=== PATIENT | male | born 1950 | race Caucasian/White ===

== ENCOUNTER 2016-01-23 22:24 | Inpatient (IN) | payer MEDICARE, MEDICAID ==
[~2016-01-23] VITALS: Ht 185.4 cm; Wt 90.7 kg
[~2016-01-23 22:24] MED LIST: ASPI81TA85 PO; BRIM0.2S OU; CEFD1CAP8 PO; COMBAER6 INH; DEPA500T2 PO; DIVA500T9 PO; DORZ2SOL5 OU; FOLI1TAB2 PO; FURO40TA2 PO; LISI10TA4 PO; OXAZ10CA PO; QUET1TAB7 PO; QUET1TAB9 PO; SERO1TAB3 PO; SERO200T PO; THIA100T PO; VITMTA PO; XANA0.5T PO
[2016-01-23 23:40] LABS: MEAN CORPUSCULAR HGB CONC 32.8 g/dl (32.0-36.5); MEAN CORPUSCULAR VOLUME 100.6 fl (80.0-96.0); RED CELL DISTRIBUTION WIDTH 13.7 % (11.5-14.5); WHITE BLOOD COUNT 5.9 K/mm3 (5.0-10.0)
[2016-01-23 23:43] LABS: AMPHETAMINES LEVEL URINE NEGATIVE (NEGATIVE); BENZODIAZEPINES URINE NEGATIVE (NEGATIVE); COCAINE METABOLITE URINE NEGATIVE (NEGATIVE); M-AMPHETAMINES LEVEL URINE NEGATIVE (NEGATIVE); OPIATES URINE NEGATIVE (NEGATIVE); TRICYCLIC ANTIDEPRESS URINE NEGATIVE (NEGATIVE)
[2016-01-23 23:49] LABS: ALBUMIN 3.5 GM/DL (3.2-5.2); ALKALINE PHOSPHATASE 58 U/L (45-117); ALT/SGPT 21 U/L (12-78); ANION GAP 10 MEQ/L (8-16); AST/SGOT 16 U/L (15-37); BILIRUBIN,DIRECT 0.2 MG/DL (0.0-0.2); BILIRUBIN,TOTAL 0.7 MG/DL (0.2-1.0); BLOOD UREA NITROGEN 12 MG/DL (7-18); CARBON DIOXIDE LEVEL 27 MEQ/L (21-32); CHLORIDE LEVEL 95 MEQ/L (98-107); GLOMERULAR FILTRATION RATE > 60.0 (>49); GLUCOSE, FASTING 96 MG/DL (80-110); POTASSIUM SERUM 4.4 MEQ/L (3.5-5.1); SODIUM LEVEL 132 MEQ/L (136-145)
[2016-01-24] MEDS ORDERED: THIAMINE 100 MG TAB As Ordered ONE (00:23)
--- NOTE | 2016-01-24 02:30 | REPUSA ---
CLINICAL HISTORY: AMS. TECHNIQUE: Multiple axial brain CT scan sections were obtained from base to vertex without contrast a dministration. COMMENTS: The study shows normal configuration of sella turcica. There are no intra or extra-axial collections. There is no mass effect or midline shift. There is no evidence of hematoma formation. No hydrocephal us is present. No abnormal calcifications are noted. No significant abnormalities are seen either in the posterior fossa or supratentorial compartment. The sinuses and mastoid air cells are patent. IMPRESSION: No evidence of acute intracranial pathology. Thank you for your kind referral of this patient.
[2016-01-24] MEDS ORDERED: ONDANSETRON 4 MG TAB (S0181) PO PRN (06:00)
[2016-01-24] MEDS ORDERED: risperiDONE 0.5 MG TAB PO ONE (06:30)
[2016-01-24 07:05] LABS: CALCIUM OXALATE CRYSTALS SMALL
[2016-01-24 07:32] VITALS: BP 154/78
--- NOTE | 2016-01-24 07:41 | EDDOCDS ---
Physician Documentation [facility] Name: Guicho Chavez Age: 65 yrs Sex: Male : 1950 Arrival Date: 01/23/2016 Time: 22:24 Bed 11 Private MD: Disposition: 01/24/16 06:10 Hospitalization ordered by Sachi Jauregui for Inpatient Admission. Preliminary diagnosis is Wernicke's encephalopathy. - Bed requested for 4 [place]. - Status is Inpatient Admission. [id number] - Condition is Stable. - Problem is new. - Symptoms are unchanged. Historical: - Allergies: NKDA; - Home Meds: 1. aspirin 81 mg Oral TbEC 1 tab once daily 2. brimonidine-timolol ophthalmic 1 drop every 12 hours both eyes 3. Depakote ER 2 grams daily Oral 4. dorzolamide-timolol 22.3-6.8 mg/mL ophthalmic drop 1 drop 2 times per day 5. ipratropium-albuterol 0.5 mg-3 mg(2.5 mg base)/3 mL Inhl nebu as needed as needed 6. Lasix 40 mg Oral tab 1 tab 2 times per day 7. lisinopril 10 mg Oral tab 1 tab once daily 8. thiamine HCl 100 mg Oral tab daily - PMHx: Alcoholism; COPD; Glaucoma; Hypertension; hyponatremia; macrocytic anemia; peripheral neuropathy; - PSHx: Umbilical hernia repair; - Social history: Smoking status: unknown if patient ever smoked tobacco. No barriers to communication noted, The patient speaks fluent Yoruba. - Family history: Not pertinent. - : The pt / caregiver states he / she is not on anticoagulants. Home medication list is obtained from the facility [facility]. - Exposure Risk Screening:: None identified. Vital Signs: 01/22 22:28 BP 139 / 90; Pulse 91; Resp 20; Temp 98.4; Pulse Ox 96% ; Pain 0/10; slm 22:30 Weight 72.57 kg / 159.99 lbs; Height 6 ft. 1 in. (185.42 cm); [facility] 01/23 01:51 BP 143 / 83; Pulse 81; Resp 20; Pulse Ox 96% on R/A; slm 06:12 BP 151 / 80; Pulse 73; Resp 18; Temp 96.0(T); Pulse Ox 100% on R/A; Pain 0/10; mdr 07:32 BP 154 / 78; Pulse 76; Resp 18; Temp 96.5(O); Pulse Ox 99% on R/A; Pain 0/10; js13 01/22 22:30 Body Mass Index 21.11 (72.57 kg, 185.42 cm) [facility] MDM: 01/22 22:47 Consult PFS/PSA/Traffic Administrator ordered. br1 22:47 Consult PFS/PSA/Traffic Administrator: Patient's case requires discussion with on-call br1 Psychiatrist ordered. 22:47 PSA/PFS to call Nursing Director Client, to enter patient data on [place] Safe Act if patient br1 involuntarily admitted or transferred for SI or HI ordered. 22:47 Confirm accurate psychiatric medication list and times of last dosage ordered. br1 22:47 Detain Pt Until Medically/PFS Cleared ordered. br1 22:48 Acetaminophen Level Ordered. EDMS 22:48 Basic Metabolic Profile Ordered. EDMS 22:48 Complete Blood Count Ordered. EDMS 22:48 Drug Eval Toxicology ED Only Ordered. EDMS 22:48 Ethyl Alcohol (ethanol) Ordered. EDMS 22:48 Liver Profile Ordered. EDMS 22:48 Salicylate Level Ordered. EDMS 22:48 Thyroid Stimulating Hormone Ordered. EDMS 22:48 DEPAKOTE Ordered. EDMS 23:56 MHE Legal paperwork was scanned into Docin and attached to record. [facility] 01/23 00:05 Acetaminophen Level Reviewed. br1 00:05 Basic Metabolic Profile Reviewed. br1 00:05 Complete Blood Count Reviewed. br1 00:05 Salicylate Level Reviewed. br1 00:05 DEPAKOTE Reviewed. br1 00:05 Drug Eval Toxicology ED Only Reviewed. br1 00:05 Ethyl Alcohol (ethanol) Reviewed. br1 00:05 Liver Profile Reviewed. br1 00:05 Thyroid Stimulating Hormone Reviewed. br1 00:09 Thiamine 100 mg PO once ordered. br1 00:13 CT Head Without Contrast Ordered. EDMS 00:16 BED REQUEST+ADM ordered. EDMS 05:16 REGULAR DIET PLASTIC HONG+DIET ordered. EDMS 06:02 Admission / Observation Status ordered. EDMS 06:02 URINALYSIS Ordered. EDMS 06:03 AMMONIA Ordered. EDMS 06:07 [facility] Payment Agreement was scanned into Docin and attached to record. ers 06:11 IV Saline Lock ordered. br1 06:12 Financial registration complete. ers 07:28 REGULAR DIET ordered. EDMS Administered Medications: 00:26 Drug: Thiamine 100 mg [thiamine HCl 100 mg tablet (1 tabs)] Route: PO; slm Signatures: Dispatcher [employer] EDMS Michael Guaman MD MD br1 Sachi Ferguson, PSA PSA hm1 Nava Garcia,RN RN js13 Gladys Rashid,RN RN ls2 Gladys Mata, RN RN sls2 Nohelia Trent [facility] Naomi Alvarez LPN m The chart was reviewed and I authenticate all verbal orders and agree with the evaluation and treatment provided.Corrections: (The following items were deleted from the chart) 06:18 06:03 VALPROIC ACID (DEPAKOTE) ordered. EDMS EDMS 07:28 06:02 REGULAR DIET ordered. EDMS EDMS Attachments: 01/23 06:07 [facility] Payment Agreement ers MTDD
--- NOTE | 2016-01-24 07:41 | EDDOCDS ---
Nurse's Notes [facility] Name: Guicho Chavez Age: 65 yrs Sex: Male : 1950 Arrival Date: 01/23/2016 Time: 22:24 Bed 11 Private MD: Diagnosis: Wernicke's encephalopathy Presentation: 01/22 22:42 Presenting complaint: patient was brought in by [place] police, patient was cutting ls2 wholes in his ochoa, became aggressive towards his , patient is the room having a conversation with himself at this time. Mental Health Triage Level Level 2: The patient is visibly agitated and appears to be potentially at risk. Suicide/Homicide risk assessment- the patient denies having any suicidal and/or homicidal ideations. Status Patient is not a mechanical service specialist or dependent. Transition of care: patient was not received from another setting of care. 22:42 Acuity: GEORGE Level 3 ls2 22:42 Method Of Arrival: Police Car ls2 Triage Assessment: 22:45 General: Appears in no apparent distress, Behavior is agitated, anxious, inappropriate ls2 for age. Pain: Denies pain. The patient is triaged at the bedside. See Assessment in Nurses Notes section of ED record. Neurological: Level of Consciousness is awake, alert, confused, Oriented to person, Moves all extremities. Gait is steady. Respiratory: Airway is patent Respiratory effort is even, unlabored, Respiratory pattern is regular, symmetrical. GI: Abdomen is flat, non- distended. Derm: Skin is pink, warm & dry. Historical: - Allergies: NKDA; - Home Meds: 1. aspirin 81 mg Oral TbEC 1 tab once daily 2. brimonidine-timolol ophthalmic 1 drop every 12 hours both eyes 3. Depakote ER 2 grams daily Oral 4. dorzolamide-timolol 22.3-6.8 mg/mL ophthalmic drop 1 drop 2 times per day 5. ipratropium-albuterol 0.5 mg-3 mg(2.5 mg base)/3 mL Inhl nebu as needed as needed 6. Lasix 40 mg Oral tab 1 tab 2 times per day 7. lisinopril 10 mg Oral tab 1 tab once daily 8. thiamine HCl 100 mg Oral tab daily - PMHx: Alcoholism; COPD; Glaucoma; Hypertension; hyponatremia; macrocytic anemia; peripheral neuropathy; - PSHx: Umbilical hernia repair; - Social history: Smoking status: unknown if patient ever smoked tobacco. No barriers to communication noted, The patient speaks fluent Australian. - Family history: Not pertinent. - : The pt / caregiver states he / she is not on anticoagulants. Home medication list is obtained from the facility MAR. - Exposure Risk Screening:: None identified. Screenin:45 Screening information is obtained from prior medical records. Fall risk: At risk due to ls2 apparent cognitive impairment, The following interventions are performed due to a positive Fall Risk Screen: Fall Risk is added to Special Handling on the patient Summary Screen. A Fall Risk Bracelet was applied to the patient. Side Rails are placed in the up position. A Call Meeks is given with instruction to call for help when getting out of bed. Fall Alert bracelet is placed on the patient. Assistance ADL's: requires no assistance with activities of daily living. Abuse/DV Screen: The patient / caregiver reports he/she is: not in a situation that causes fear, pain or injury. Nutritional screening: No deficits noted. Advance Directives: Currently, there is no health care proxy. home support is adequate. Assessment: 22:45 General: Appears in no apparent distress, Behavior is agitated, anxious, inappropriate ls2 for age. Pain: Unable to use pain scale. Does not appear to understand pain scale. Neurological: Level of Consciousness is awake, alert, Oriented to person, place, time. Respiratory: Airway is patent Respiratory effort is even, unlabored, Respiratory pattern is regular, symmetrical. GI: Abdomen is non- distended. Derm: Skin is pink, warm & dry. 22:45 General: patient appears to be confused and is talking to himself at this time . ls2 22:54 General: Appears in no apparent distress, Behavior is anxious, inappropriate for age, slm pt laying on stretcher rambling talking to self security observing . 01/23 00:27 General: Appears in no apparent distress, Behavior is restless. General: pt sitting in slm chair talking to self security observing . Neurological: Level of Consciousness is awake, confused, Oriented to person. Respiratory: Airway is patent Respiratory effort is even, unlabored. GI: 01:20 General: Appears in no apparent distress, comfortable, Behavior is cooperative. slm General: pt resting on stretcher security observing . Respiratory: Airway is patent Respiratory effort is even, unlabored. 01:51 General: Appears in no apparent distress, Behavior is cooperative, pt returned from CT slm resting on stretcher denies needs security observing . 02:45 General: Appears in no apparent distress, comfortable, Behavior is cooperative. slm General: security observing . Respiratory: Airway is patent Respiratory effort is even, unlabored. 04:03 General: Appears in no apparent distress, Behavior is cooperative, inappropriate for slm age. General: pt sitting in chair rambling to self security observing . Respiratory: Airway is patent Respiratory effort is even, unlabored. 05:00 General: Appears in no apparent distress, Behavior is cooperative. General: pt sitting slm in chair talking to self denies needs security observing . Respiratory: Airway is patent Respiratory effort is even, unlabored. 05:41 General: Appears in no apparent distress, Behavior is cooperative, Dr into see pt . slm 06:15 General: Appears in no apparent distress, comfortable, Behavior is cooperative. slm General: pt sitting on chair continuously talking to self safety maintained staff observing . Neurological: Level of Consciousness is awake, obeys commands, Oriented to person. Respiratory: Airway is patent Respiratory effort is even, unlabored. 06:45 General: Appears in no apparent distress, comfortable, Behavior is anxious, restless, js13 very talkative. Pain: Denies pain. Neurological: Level of Consciousness is awake, alert, obeys commands, Oriented to person, place, time. Respiratory: Airway is patent Respiratory effort is even, unlabored, Respiratory pattern is regular, symmetrical. Derm: Skin is pink, warm & dry. 07:30 General: Appears in no apparent distress, comfortable, Behavior is cooperative, js13 restless, very talkative. Pain: Denies pain. Neurological: Level of Consciousness is awake, alert, obeys commands. Respiratory: Airway is patent Respiratory effort is even, unlabored, Respiratory pattern is regular, symmetrical. Derm: Skin is pink, warm & dry. Mental Health Eval: 01/22 23:50 Referral Information: Evaluation referral is generated by a police agency: [facility]. The patient was referred for evaluation because Police were called by neighbors reporting that pt had been wandering in the middle of the road multiple times throughout the day. Pt has also been yelling and rambling incoherently, frightening neighbors. Pt has a recent history of aggressive and threatening behaviors toward family. Today pt has also been cutting holes in his ochoa for no apparent reason, had been cutting into electrical areas causing concern that he was going to harm himself. . Vital Signs: 22:28 BP 139 / 90; Pulse 91; Resp 20; Temp 98.4; Pulse Ox 96% ; Pain 0/10; [facility] 22:30 Weight 72.57 kg; Height 6 ft. 1 in. (185.42 cm); [facility] 01/23 01:51 BP 143 / 83; Pulse 81; Resp 20; Pulse Ox 96% on R/A; [facility] 06:12 BP 151 / 80; Pulse 73; Resp 18; Temp 96.0(T); Pulse Ox 100% on R/A; Pain 0/10; mdr 07:32 BP 154 / 78; Pulse 76; Resp 18; Temp 96.5(O); Pulse Ox 99% on R/A; Pain 0/10; js13 01/22 22:30 Body Mass Index 21.11 (72.57 kg, 185.42 cm) [facility] Vitals: 01/22 22:28 Log In time N/A- police car arrival. Does not meet SIRS criteria. [facility] ED Course: 22:26 Patient visited by Cuca Kruger. [facility] 22:[address] [facility] 22:27 Alexus Cardoso,RN is Primary Nurse. [facility] 22:27 Patient moved to [place] [id number] 22:44 Triage Initiated ls2 22:45 Unable to instruct regarding the plan of care due to patient condition. Patient has ls2 correct armband on for positive identification. Placed in gown. Placed in psych safe attire. Bed in low position. Call light in reach. Side rails up X 1. 22:45 No IV's were initiated during this patient's visit. No procedures done that require ls2 assistance. 22:47 Patient visited by Gladys Rashid RN. ls2 22:55 Patient visited by Naomi Alvarez LPN. slm 23:05 Patient visited by Naomi Alvarez LPN. slm 23:14 Patient visited by Ancelmo Eason PCA. mdr 23:19 Patient visited by Ancelmo Eason PCA. mdr 23:19 Patient visited by Ancelmo Eason PCA. mdr 23:19 Assisted to bathroom. mdr 23:26 Labs drawn. (by ED staff). Sent per order to lab. Urine collected. Urine specimen sent slm to lab. 23:34 Patient visited by Ancelmo Eason PCA. mdr 23:40 Michael Guaman MD is Attending Physician. br1 23:50 Patient visited by Michael Guaman MD. br1 23:56 [facility] Legal paperwork was scanned into [employer] and attached to record. hm1 01/23 00:05 Patient visited by Ancelmo Eason PCA. mdr 00:12 Primary Nurse role handed off by Alexus Cardoso RN collins 00:15 Patient visited by Ancelmo Eason PCA. mdr 00:26 Naomi Alvarez LPN is Primary Nurse. slm 00:28 Patient visited by Naomi Alvarez LPN. slm 00:50 Patient visited by Ancelmo Eason PCA. mdr 01:36 Patient visited by Naomi Alvarez LPN. slm 01:[address] slm 01:51 Patient moved to BHU1 slm 01:52 Patient visited by Naomi Alvarez LPN. slm 01:53 Patient visited by Naomi Alvarez LPN. slm 02:03 Patient visited by Naomi Alvarez LPN. slm 02:34 Patient visited by Ancelmo Eason PCA. mdr 02:45 Patient visited by Naomi Alvarez LPN. slm 02:51 CT Head Without Contrast Returned. EDMS 02:53 Patient visited by Ancelmo Eason PCA. mdr 03:04 Patient visited by Ancelmo Eason PCA. mdr 03:20 Patient visited by Ancelmo Eason PCA. mdr 03:46 Patient visited by Ancelmo Eason PCA. mdr 04:00 Patient visited by Ancelmo Eason PCA. mdr 04:04 Patient visited by Naomi Alvarez LPN. slm 04:38 Patient visited by Ancelmo Eason PCA. mdr 04:48 Patient visited by Ancelmo Eason PCA. mdr 04:59 Patient visited by Ancelmo Eason PCA. mdr 05:14 Patient visited by Ancelmo Eason PCA. mdr 05:22 Patient visited by Naomi Alvarez LPN. slm 05:35 Patient visited by Ancelmo Eason PCA. mdr 05:41 Patient visited by Ancelmo Eason PCA. mdr 05:42 Patient visited by Naomi Alvarez LPN. slm 05:56 Patient visited by Ancelmo Eason PCA. mdr 06:07 [facility] Payment Agreement was scanned into [employer] and attached to record. ers 06:10 Sachi Jauregui is Hospitalizing Provider. br1 06:12 Patient visited by Ancelmo Eason PCA. mdr 06:16 Patient visited by Naomi Alvarez LPN. slm 06:18 Nava Garcia,NANCY is Primary Nurse. js13 06:18 Patient moved to 11 js13 06:33 AMMONIA Sent. js13 06:34 URINALYSIS Sent. js13 06:35 Inserted saline lock: 18 gauge in left antecubital area and blood collected. The js13 patient tolerated the procedure well. Labs drawn. (by ED staff). Sent per order to lab. Administered Medications: 00:26 Drug: Thiamine 100 mg [thiamine HCl 100 mg tablet (1 tabs)] Route: PO; [facility] Attachments: 01/22 23:56 [facility] Legal paperwork hm1 Order Results: Lab Order: Acetaminophen Level; SPEC'M 01/23/16 22:52 Test: ACETAMINOPHEN LEVEL; Value: < 2.0; Range: 10.0-30.0; Abnormal: Below low normal; Units: UG/ML; Status: F Lab Order: Basic Metabolic Profile; SPEC'M 01/23/16 22:52 Test: GLUCOSE, FASTING; Value: 96; Range: 80-110; Units: MG/DL; Status: F Test: BLOOD UREA NITROGEN; Value: 12; Range: 7-18; Units: MG/DL; Status: F Test: CREATININE FOR GFR; Value: 0.70; Range: 0.70-1.30; Units: MG/DL; Status: F Test: GLOMERULAR FILTRATION RATE; Value: > 60.0; Range: >49; Status: F Test: SODIUM LEVEL; Value: 132; Range: 136-145; Abnormal: Below low normal; Units: MEQ/L; Status: F Test: POTASSIUM SERUM; Value: 4.4; Range: 3.5-5.1; Units: MEQ/L; Status: F Test: CHLORIDE LEVEL; Value: 95; Range: 98-107; Abnormal: Below low normal; Units: MEQ/L; Status: F Test: CARBON DIOXIDE LEVEL; Value: 27; Range: 21-32; Units: MEQ/L; Status: F Test: ANION GAP; Value: 10; Range: 8-16; Units: MEQ/L; Status: F Test: CALCIUM LEVEL; Value: 9.0; Range: 8.8-10.2; Units: MG/DL; Status: F Test Note: ; Units are mL/min/1.73 m2 Chronic Kidney Disease Staging per NKF: Stage I & II GFR >=60 Normal to Mildly Decreased Stage III GFR 30-59 Moderately Decreased Stage IV GFR 15-29 Severely Decreased Stage V GFR <15 Very Little GFR Left ESRD GFR <15 on MARKET MANAGER Lab Order: Complete Blood Count; [facility]' 01/23/16 22:52 Test: WHITE BLOOD COUNT; Value: 5.9; Range: 5.0-10.0; Units: K/mm3; Status: F Test: RED BLOOD COUNT; Value: 3.47; Range: 4.70-6.10; Abnormal: Below low normal; Units: M/mm3; Status: F Test: HEMOGLOBIN; Value: 11.5; Range: 14.0-18.0; Abnormal: Below low normal; Units: g/dl; Status: F Test: HEMATOCRIT; Value: 34.9; Range: 42.0-52.0; Abnormal: Below low normal; Units: %; Status: F Test: MEAN CORPUSCULAR VOLUME; Value: 100.6; Range: 80.0-96.0; Abnormal: Above high normal; Units: fl; Status: F Test: MEAN CORPUSCULAR HEMOGLOBIN; Value: 33.0; Range: 27.0-33.0; Units: pg; Status: F Test: MEAN CORPUSCULAR HGB CONC; Value: 32.8; Range: 32.0-36.5; Units: g/dl; Status: F Test: RED CELL DISTRIBUTION WIDTH; Value: 13.7; Range: 11.5-14.5; Units: %; Status: F Test: PLATELET COUNT, AUTOMATED; Value: 144; Range: 172-450; Abnormal: Below low normal; Units: k/mm3; Status: F Lab Order: Drug Eval Toxicology ED Only; SPEC'M 01/23/16 22:52 Test: AMPHETAMINES LEVEL URINE; Value: NEGATIVE; Range: NEGATIVE; Status: F Test: M-AMPHETAMINES LEVEL URINE; Value: NEGATIVE; Range: NEGATIVE; Status: F Test: BARBITURATES URINE; Value: NEGATIVE; Range: NEGATIVE; Status: F Test: BENZODIAZEPINES URINE; Value: NEGATIVE; Range: NEGATIVE; Status: F Test: CANNABINOIDS URINE; Value: NEGATIVE; Range: NEGATIVE; Status: F Test: COCAINE METABOLITE URINE; Value: NEGATIVE; Range: NEGATIVE; Status: F Test: OPIATES URINE; Value: NEGATIVE; Range: NEGATIVE; Status: F Test: PHENCYCLIDINE URINE; Value: NEGATIVE; Range: NEGATIVE; Status: F Test: TRICYCLIC ANTIDEPRESS URINE; Value: NEGATIVE; Range: NEGATIVE; Status: F Test Note: ; ALL PRESUMPTIVE POSITIVE FINDINGS ARE UNCONFIRMED NORMAL VALUES THRESHOLD IN NG/ML AMPHETAMINES 1000 METHAMPHETAMINES 1000 BARBITURATES 300 BENZODIAZEPINES 300 CANNABINOIDS (THC) 50 COCAINE METABOLITE 300 METHADONE 300 OPIATES 300 PHENCYCLIDINE 25 TRICYCLIC ANTIDEPRESSANTS 1000 RESULTS ARE FOR MEDICAL PURPOSES ONLY. ALL URINE SPECIMENS WILL BE SAVED FOR 3 DAYS. IF CONFIRMATION OF A PRESUMPTIVE POSTIVE SCREEN RESULT IS DESIRED, CALL CHEMISTRY ([phone]) AND REQUEST URINE TO BE SENT TO REFERENCE LAB. FOR A LIST OF CLOSELY RELATED COMPOUNDS PLEASE CALL THE LAB. Lab Order: Ethyl Alcohol (ethanol); SPEC'M 01/23/16 22:52 Test: ETHYL ALCOHOL (ETHANOL); Value: < 0.003; Range: 0.000-0.010; Units: %; Status: F Lab Order: Liver Profile; SPEC'M 01/23/16 22:52 Test: AST/SGOT; Value: 16; Range: 15-37; Units: U/L; Status: F Test: ALT/SGPT; Value: 21; Range: 12-78; Units: U/L; Status: F Test: ALKALINE PHOSPHATASE; Value: 58; Range: 45-117; Units: U/L; Status: F Test: BILIRUBIN,TOTAL; Value: 0.7; Range: 0.2-1.0; Units: MG/DL; Status: F Test: BILIRUBIN,DIRECT; Value: 0.2; Range: 0.0-0.2; Units: MG/DL; Status: F Test: TOTAL PROTEIN; Value: 7.0; Range: 6.4-8.2; Units: GM/DL; Status: F Test: ALBUMIN; Value: 3.5; Range: 3.2-5.2; Units: GM/DL; Status: F Test: ALBUMIN/GLOBULIN RATIO; Value: 1.00; Range: 1.00-1.93; Status: F Lab Order: Salicylate Level; [facility] 01/23/16 22:52 Test: SALICYLATE LEVEL; Value: 2.0; Range: 5.0-30.0; Abnormal: Below low normal; Units: MG/DL; Status: F Lab Order: Thyroid Stimulating Hormone; [facility] 01/23/16 22:52 Test: THYROID STIMULATING HORMONE; Value: 2.640; Range: 0.358-3.740; Units: uIU/ML; Status: F Lab Order: DEPAKOTE; [facility] 01/23/16 22:52 Test: VALPROIC ACID (DEPAKOTE); Value: 23.9; Range: 50.0-100.0; Abnormal: Below low normal; Units: UG/ML; Status: F Lab Order: URINALYSIS; [facility] 01/23/16 22:52 Test: APPEARANCE, URINE; Value: TURBID; Range: CLEAR; Abnormal: Above high normal; Status: F Test: COLOR, URINE; Value: ALEJANDRA; Range: YELLOW; Status: F Test: PH,URINE; Value: 6.0; Range: 5.0-9.0; Units: UNITS; Status: F Test: SPECIFIC GRAVITY URINE AUTO; Value: 1.018; Range: 1.002-1.035; Status: F Test: PROTEIN, URINE AUTO; Value: NEGATIVE; Range: NEGATIVE; Units: mg/dL; Status: F Test: GLUCOSE, URINE (UA) AUTO; Value: NEGATIVE; Range: NEGATIVE; Units: mg/dL; Status: F Test: KETONE, URINE AUTO; Value: TRACE; Range: NEGATIVE; Abnormal: Above high normal; Units: mg/dL; Status: F Test: UROBILINOGEN, URINE AUTO; Value: 2.0; Range: 0.0-2.0; Abnormal: Above high normal; Units: mg/dL; Status: F Test: BILIRUBIN, URINE AUTO; Value: NEGATIVE; Range: NEGATIVE; Status: F Test: NITRITE, URINE AUTO; Value: NEGATIVE; Range: NEGATIVE; Status: F Test: LEUKOCYTE ESTERASE, URINE AUTO; Value: NEGATIVE; Range: NEGATIVE; Status: F Test: BLOOD, URINE BLOOD; Value: 1+; Range: NEGATIVE; Abnormal: Above high normal; Status: F Test: WBC, URINE AUTO; Value: 3; Range: 0-3; Units: /HPF; Status: F Test: RBC, URINE AUTO; Value: 3; Range: 0-3; Units: /HPF; Status: F Test: BACTERIA, URINE AUTO; Value: NEGATIVE; Range: NEGATIVE; Status: F Test: SQUAMOUS EPITHELIAL CELL UR AU; Value: 1; Range: 0-6; Units: /HPF; Status: F Test: MUCUS, URINE; Value: SMALL; Range: NEGATIVE; Status: F Test: HYALINE CAST, URINE AUTO; Value: 0; Range: 0-1; Units: /LPF; Status: F Test: CALCIUM OXALATE CRYSTALS; Value: SMALL; Range: NONE; Status: F Lab Order: AMMONIA; SPEC'M 01/24/16 06:30 Test: AMMONIA; Value: < 25; Range: <32; Units: uMOL/L; Status: F Radiology Order: CT Head Without Contrast Test: CT Head Without Contrast REASON FOR EXAMINATION: altered mental status; ; CLINICAL HISTORY: AMS.; TECHNIQUE: Multiple axial brain CT scan sections were obtained from base to vertex without contrast a; dministration.; COMMENTS:; The study shows normal configuration of sella turcica. There are no intra or extra-axial collections.; There is no mass effect or midline shift. There is no evidence of hematoma formation. No hydrocephal; us is present. No abnormal calcifications are noted.; No significant abnormalities are seen either in the posterior fossa or supratentorial compartment.; The sinuses and mastoid air cells are patent.; IMPRESSION:; No evidence of acute intracranial pathology.; Thank you for your kind referral of this patient.; ; Outcome: 01/22 23:27 Property removed, inventory done, secured in belongings bag- placed in locked locker. [facility] 01/23 01:47 CT Study completed. [facility] 06:10 Decision to Hospitalize by Provider. br1 06:44 Discharge Assessment: patient administered narcotics - no. The following High Risk [facility] Discharge criteria are identified: None. Admitted to Med/Surg accompanied by tech, via wheelchair, with chart. Condition: stable. Admission hand-off: Report Faxed. 07:40 Patient left the ED. [facility] Signatures: Dispatcher [employer] EDMS Michael Guaman MD MD br1 Sachi Ferguson, PSA PSA hm1 Ling Beck, LOGISTIC MANAGER LOGISTIC MANAGER collins Nava Garcia,RN RN js13 Naomi Alvarez LPN LPN Gladys Madison,RN RN ls2 Nohelia Trent, Ancelmo Riggs, LOGISTIC MANAGER LOGISTIC MANAGER mdr MTDD
[2016-01-24 07:45] VITALS: BP 146/72
--- NOTE | 2016-01-24 08:11 | HPEPDOC ---
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 He is an extremely poor historian and he is not able to participate in an interview with me today. When I ask him questions most of his answers do not make sense. When I ask him how he is doing he responds, "these pants fit me." It is difficult to follow what he is saying but it does sound like she is making accusations that someone has stolen something from him. This entire history is obtained via chart review and discussion with the ED physician. 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 History of alcoholism, unclear if he currently drinks. No drug history Allergies: Codeine Review of systems: Review of systems is unable to be obtained as the patient is not able to her participate in an interview. Home meds: See below Physical exam: Vital signs: Blood pressure 143/83, HR 81, temperature 98.4, O2 sat 96% on room air, RR 20 Gen.: awake, no acute distress Eyes: Extraocular movements intact, normal sclera ENT: Moist mucous membranes Cardiovascular: RRR, no murmurs rubs or gallops Lungs: clear to auscultation bilaterally, no rales, rhonchi, or wheeze Abdomen: Soft, NT/ND, normal BS Musculoskeletal: normal range of motion Extremities: No peripheral edema Neuro: Alert, oriented to self and year as well as to being in a hospital in [place]. He does not know the name of the hospital. Psych: Patient is pacing the room constantly. His speech is nonsensical. 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 He is being admitted for encephalopathy. 1. Encephalopathy: Is unclear if this is acute for the patient's chronic state. There is no family with him. He has prior admissions for concern for similar behavioral issues. Given the patient's history of alcoholism, it is certainly possible that this is alcohol-related dementia with worsening behavior or possibly even a Warneke's encephalopathy. He has received thiamine in the emergency department and we'll continue thiamine at this time. We will check an ammonia as well as a UA to rule out further metabolic reasons for his encephalopathy. The patient will require a sitter. In addition to the patient's home Depakote and Seroquel, I will start him on scheduled Risperdal. The patient 's UA and ammonia are unremarkable, I think it is safe to say he is medically cleared for admission to the psychiatric service. His pressured speech and inability to sit still based me suspicious that he is experiencing a manic episode. If his UA and ammonia are unremarkable, we will consult psych. 2. COPD: Patient's lungs are currently clear. We'll continue his home Combivent. 3. Hypertension: Controlled, continue home Lasix and LORENZO inhibitor. DVT prophylaxis: SCDs Dispo: in place in observation on the service of Dr. Farrell CODE STATUS: Full code VITAL SIGNS: VS Vital Sign - Last 24 Hours 01/24/16 07:32 Temp 96.5 Pulse 76 Resp 18 B/P 154/78 Pulse Ox 99 O2 Delivery Room Air LABORATORY DATA: CBC/BMP Laboratory Tests 01/23/16 22:52 Red Blood Count 3.47 L, Mean Corpuscular Volume 100.6 H, Mean Corpuscular Hemoglobin 33.0, Mean Corpuscular Hemoglobin Concent 32.8, Red Cell Distribution Width 13.7 Home Meds Scheduled (Dorzolamide HCl/Timolol M 22.3-6.8 mg/ml) 1 Rosemary Rosemary 1 DROP OU BID (Reported) Albuterol/Ipratropium (Combivent Respimat 20-100 Mcg/Act) 1 Aer Aer 1 PUFF INH QID (Reported) Aspirin (Aspir-81) 81 Mg Tab 81 MG PO DAILY (Reported) Divalproex Sodium (Divalproex Sodium ER) 500 Mg Tab 2,000 MG PO DAILY (Reported ) Furosemide (Furosemide) 40 Mg Tab 40 MG PO BID (Reported) Lisinopril (Lisinopril) 10 Mg Tab 10 MG PO DAILY (Reported) Quetiapine Fumerate (Quetiapine Fumarate) 200 Mg Tab 200 MG PO BID (Reported) Thiamine HCl (Thiamine HCl) 100 Mg Tab 100 MG PO DAILY (Reported) MARY BETH SEE Jan 24, 2016 08:11
[2016-01-24] MEDS ORDERED: LISINOPRIL 10 MG TAB PO SCH (09:00)
[2016-01-24] MEDS: QUEtiapine FUMARATE 200 MG TAB PO SCH ×2 (09:00→21:52)
[2016-01-24] MEDS: COSOPT OCUMETER PLUS 10ML (DORZOLAMIDE/TIMOLOL) OU SCH ×2 (09:00→21:52)
[2016-01-24] MEDS: IPRATROPIUM 0.5MG/ALBUTEROL 2.5MG INH SOL UD 3ML (DUONEB)(J7620) INH SCH ×4 (09:27→19:09)
[2016-01-24] MEDS: ASPIRIN 81 MG ENTERIC TAB PO SCH (09:33)
[2016-01-24] MEDS: DIVALPROEX 500MG *ER* TAB PO SCH (09:33)
[2016-01-24] MEDS: THIAMINE 100 MG TAB PO SCH (09:34)
[2016-01-24] MEDS: FUROSEMIDE 40 MG TAB PO SCH ×2 (09:34→21:52)
[2016-01-24] MEDS: FOLIC ACID 1 MG TAB PO SCH (09:34)
[2016-01-24] MEDS: MULTIVITAMINS/MINERALS THERAP 1 TAB PO SCH (09:34)
--- NOTE | 2016-01-24 12:14 | IPNPDOC ---
Assessment/Plan Date Seen The patient was seen on 01/24/16. Problems Problems: (1) Bipolar affective disorder Status: Acute Problem Text: seems to be in manic phase, psych consult, restart home medications. unsure whether the patient was taking his medications at home or not. last admission patient refused to go to [facility]. He was evaluated by psych and medicine and found to have decisional capacity so he left AMA family does want to take him back home will need placement. (2) Hyponatremia Status: Chronic Problem Text: continue with fluid restriction and lasix. (3) HTN (hypertension) Status: Chronic (4) Seizure Status: Chronic (5) History of alcoholism Status: Acute (6) Glaucoma Status: Acute (7) COPD (chronic obstructive pulmonary disease) Status: Acute Plan / VTE VTE Prophylaxis Ordered?: Yes Subjective CC/HPI The patient is a 65-year-old male admitted with a reason for visit of Encephalopathy. Events since last encounter cannot get any history from the patient , patient jumping from topic to topic . does know he is in hospital in [place], could not tell me the name of the hospital. knew the year and month. very restless trying to get out of bed and walk around. Objective General Exam: : Alert: Cooperative: No Acute Distress Eye Exam: : Conjunctiva & lids normal: EOMI: PERRLANo: Sclera icteric Neck Exam: : SuppleNo: JVD, thyromegaly Chest Exam: : Clear to auscultation: Normal air movement Heart Exam: : Normal S1: Normal S2: Rate Normal: Regular RhythmNo: Murmurs, Rubs Abdomen Exam: : Normal bowel sounds: SoftNo: Hepatospenomegaly, Tenderness Extremity Exam: : Edema (right leg) VS/I&O Vital Sign - Last 24 Hours 01/24/16 07:32 Temp 96.5 Pulse 76 Resp 18 B/P 154/78 Pulse Ox 99 O2 Delivery Room Air Labs 24H Laboratory Tests 2 01/23/16 22:52: Acetaminophen Level < 2.0L, Aspartate Amino Transf (AST/SGOT) 16, Alanine Aminotransferase (ALT/SGPT) 21, Alkaline Phosphatase 58, Total Bilirubin 0.7, Direct Bilirubin 0.2, Albumin 3.5, Albumin/Globulin Ratio 1.00, Anion Gap 10, Calcium Level 9.0, Ethyl Alcohol Level < 0.003, Glomerular Filtration Rate > 60.0, Salicylates Level 2.0L, Thyroid Stimulating Hormone (TSH) 2.640, Total Protein 7.0, Urine Amorphous Sediment , Urine Amphetamine Level NEGATIVE, Urine Benzodiazepines Screen NEGATIVE, Urine Cannabinoids NEGATIVE, Urine Cocaine Metabolite NEGATIVE, Urine Opiates Screen NEGATIVE, Urine Phencyclidine (PCP) Level NEGATIVE, Urine Appearance TURBIDH, Urine Color ALEJANDRA, Urine pH 6.0, Urine Specific [place] 1.018, Urine Protein NEGATIVE, Urine Glucose (UA) NEGATIVE, Urine Ketones TRACEH, Urine Urobilinogen 2.0H, Urine Bilirubin NEGATIVE, Urine Leukocyte Esterase NEGATIVE, Urine Bacteria (Auto) NEGATIVE, Urine Barbiturates, Qualitative NEGATIVE, Urine Blood 1+H, Urine Calcium Carbonate Cryst(Auto) , Urine Calcium Oxalate Cryst (Auto) SMALL, Urine Calcium Phosphate Sheyla (Auto) , Urine Cellular Casts , Urine Cystine Crystals , Urine Granular Casts (Auto) , Urine Hyaline Casts (Auto) 0, Urine Leucine Crystals , Urine Methamphetamines Screen NEGATIVE, Urine Mucus (Auto) SMALL, Urine Nitrite NEGATIVE, Urine Oval Fat Bodies (Auto) , Urine RBC (Auto) 3, Urine Renal Epithelial Cells , Urine Sperm (Auto) , Urine Squamous Epithelial Cells 1, Urine Transitional Epithelial Cells , Urine Trichomonas (Auto) , Urine Tricyclic Antidepressants NEGATIVE, Urine Triple Phosphate Cryst (Auto) , Urine Tyrosine Crystals , Urine Uric Acid Crystals (Auto) , Urine WBC (Auto) 3, Urine Waxy Casts (Auto) , Urine Yeast-Like Cells (Auto) , Valproic Acid (Depakene) Level 23.9L 01/24/16 06:30: Ammonia < 25 CBC/BMP Laboratory Tests 01/23/16 22:52 Red Blood Count 3.47 L, Mean Corpuscular Volume 100.6 H, Mean Corpuscular Hemoglobin 33.0, Mean Corpuscular Hemoglobin Concent 32.8, Red Cell Distribution Width 13.7 Allergies Allergies Coded Allergies Codeine (Unverified Adverse Reaction, Mild, RESTLESSNESS, 11/11/15) PRINCE CHAPMAN MD Jan 24, 2016 12:14
[2016-01-24] MEDS ORDERED: HALOPERIDOL 5 MG/ML VIAL (J1630) IM PRN (19:45)
[2016-01-24] MEDS: risperiDONE 0.5 MG TAB PO SCH (21:52)
[2016-01-24 22:00] VITALS: BP 92/47
[2016-01-25 03:58] VITALS: BP 100/56
[2016-01-25 05:58] LABS: BASO % 0.7 % (0.0-1.0); EOS # 0.3 K/mm3 (0.0-0.50); EOS % 4.2 % (0.0-3.0); LARGE UNSTAINED CELL # 0.1 K/mm3 (0.0-0.4); LARGE UNSTAINED CELL % 1.9 % (0.0-4.0); LYMPH # 3.5 K/mm3 (1.5-4.5); LYMPH % 51.9 % (24.0-44.0); MEAN CORPUSCULAR HEMOGLOBIN 32.7 pg (27.0-33.0); MEAN CORPUSCULAR HGB CONC 32.8 g/dl (32.0-36.5); MEAN CORPUSCULAR VOLUME 99.8 fl (80.0-96.0); MONO # 0.6 K/mm3 (0.0-0.8); MONO % 8.8 % (0.0-5.0); NEUTROPHILS # 2.1 K/mm3 (1.8-7.7); NEUTROPHILS % 32.4 % (36.0-66.0); PLATELET COUNT, AUTOMATED 177 k/mm3 (172-450); RED CELL DISTRIBUTION WIDTH 13.9 % (11.5-14.5); WHITE BLOOD COUNT 6.5 K/mm3 (5.0-10.0)
[2016-01-25 06:00] VITALS: BP 78/40
[2016-01-25 06:07] LABS: ALBUMIN 3.2 GM/DL (3.2-5.2); ALBUMIN/GLOBULIN RATIO 0.82 (1.00-1.93); ALKALINE PHOSPHATASE 63 U/L (45-117); ALT/SGPT 18 U/L (12-78); ANION GAP 6 MEQ/L (8-16); AST/SGOT 14 U/L (15-37); BILIRUBIN,TOTAL 0.5 MG/DL (0.2-1.0); BLOOD UREA NITROGEN 9 MG/DL (7-18); CALCIUM LEVEL 8.8 MG/DL (8.8-10.2); CARBON DIOXIDE LEVEL 30 MEQ/L (21-32); CHLORIDE LEVEL 98 MEQ/L (98-107); CREATININE FOR GFR 0.68 MG/DL (0.70-1.30); GLOMERULAR FILTRATION RATE > 60.0 (>49); GLUCOSE, FASTING 86 MG/DL (80-110); MAGNESIUM LEVEL 1.9 MG/DL (1.8-2.4); POTASSIUM SERUM 3.4 MEQ/L (3.5-5.1); SODIUM LEVEL 134 MEQ/L (136-145); TOTAL PROTEIN 7.1 GM/DL (6.4-8.2)
[2016-01-25] MEDS: IPRATROPIUM 0.5MG/ALBUTEROL 2.5MG INH SOL UD 3ML (DUONEB)(J7620) INH SCH ×2 (07:45→11:34)
[2016-01-25] MEDS: risperiDONE 0.5 MG TAB PO SCH ×2 (09:41→21:27)
[2016-01-25] MEDS: QUEtiapine FUMARATE 200 MG TAB PO SCH ×2 (09:41→21:27)
[2016-01-25] MEDS: THIAMINE 100 MG TAB PO SCH (09:41)
[2016-01-25] MEDS: COSOPT OCUMETER PLUS 10ML (DORZOLAMIDE/TIMOLOL) OU SCH ×2 (09:41→22:26)
[2016-01-25] MEDS: DIVALPROEX 500MG *ER* TAB PO SCH (09:41)
[2016-01-25] MEDS: ASPIRIN 81 MG ENTERIC TAB PO SCH (09:41)
[2016-01-25] MEDS: MULTIVITAMINS/MINERALS THERAP 1 TAB PO SCH (09:41)
[2016-01-25] MEDS: FUROSEMIDE 40 MG TAB PO SCH ×2 (09:41→21:27)
[2016-01-25] MEDS: FOLIC ACID 1 MG TAB PO SCH (09:41)
--- NOTE | 2016-01-25 10:34 | IPNPDOC ---
Assessment/Plan Date Seen The patient was seen on 01/25/16. Problems Problems: (1) Bipolar affective disorder Status: Acute Problem Text: Seems to be in manic phase. Was seen by psychiatry yesterday, will not be admitted to mental health. unsure whether the patient was taking his medications at home or not. Last admission patient refused to go to senior care. He was evaluated by psych and medicine and found to have decisional capacity so he left AMA. At that time he was on his psych medications. signed restraining order against him. Family does want to take him back home. At this point because of his acute psychiatric issues pateint does not have a decisional capacity (2) Hyponatremia Status: Chronic Problem Text: continue with fluid restriction and lasix. (3) HTN (hypertension) Status: Chronic Problem Text: Hypotensive today. Will hold medications (4) Seizure Status: Chronic Problem Text: Continue Depakote. (5) History of alcoholism Status: Chronic (6) Glaucoma Status: Acute Problem Text: Cont home medications, eye drops (7) COPD (chronic obstructive pulmonary disease) Status: Acute Problem Text: Continue inhalers Plan / VTE VTE Prophylaxis Ordered?: Yes Subjective CC/HPI The patient is a 65-year-old male admitted with a reason for visit of Encephalopathy. Events since last encounter Said that he wanted to go home today. signed restraining order against him. Cannot go home. Psych saw him yesterday, pt will not go to in mental [facility]. General: Reports: Normal Appetite, Denies: Chills, Fatigue, Malaise, Night Sweats Pulmonary: Denies: Cough, Dyspnea Cardiovascular: Denies: Chest Pain, Lt Headedness, Orthopnea, Palpitations, Paroxysmal Noc. Dyspnea Gastrointestinal: Denies: Abdominal Pain, Diarrhea, Nausea, Vomiting Genitourinary: Denies: Retention Objective General Exam: : Alert: Cooperative: No Acute Distress Eye Exam: : Conjunctiva & lids normal: EOMI: PERRLANo: Sclera icteric Neck Exam: : SuppleNo: JVD, thyromegaly Chest Exam: : Clear to auscultation: Normal air movement Heart Exam: : Normal S1: Normal S2: Rate Normal: Regular RhythmNo: Murmurs, Rubs Abdomen Exam: : Normal bowel sounds: SoftNo: Hepatospenomegaly, Tenderness Extremity Exam: : Edema (right leg) VS/I&O Vital Sign - Last 24 Hours 01/24/16 01/25/16 01/25/16 22:00 03:58 06:00 Temp 96.4 96.0 Pulse 69 64 59 Resp 17 18 19 B/P 92/47 100/56 78/40 Pulse Ox 100 99 O2 Delivery Room Air Room Air I&O- Last 24 Hours up to 6 AM 01/25/16 05:59 Intake Total 960 ml Output Total 0 ml Balance 960 ml Labs 24H Laboratory Tests 2 01/25/16 05:14: Blood Urea Nitrogen 9, Creatinine 0.68L, Sodium Level 134L, Potassium Level 3.4# L, Chloride Level 98, Carbon Dioxide Level 30, Calcium Level 8.8, Aspartate Amino Transf (AST/SGOT) 14L, Alanine Aminotransferase (ALT/SGPT) 18, Alkaline Phosphatase 63, Total Bilirubin 0.5, Total Protein 7.1, Albumin 3.2, Albumin/ Globulin Ratio 0.82L, Anion Gap 6L, White Blood Count 6.5, Red Blood Count 3.64L , Hemoglobin 11.9L, Hematocrit 36.3L, Mean Corpuscular Volume 99.8H, Mean Corpuscular Hemoglobin 32.7, Mean Corpuscular Hemoglobin Concent 32.8, Red Cell Distribution Width 13.9, Platelet Count 177, Neutrophils (%) (Auto) 32.4L, Lymphocytes (%) (Auto) 51.9H, Monocytes (%) (Auto) 8.8H, Eosinophils (%) (Auto) 4.2H, Basophils (%) (Auto) 0.7, Neutrophils # (Auto) 2.1, Lymphocytes # (Auto) 3.5, Monocytes # (Auto) 0.6, Eosinophils # (Auto) 0.3, Basophils # (Auto) 0.0, Glomerular Filtration Rate > 60.0, Large Unclassified Cells # 0.1, Large Unclassified Cells % 1.9, Magnesium Level 1.9 CBC/BMP Laboratory Tests 01/25/16 05:14 Calcium Level 8.8, Aspartate Amino Transf (AST/SGOT) 14 L, Alanine Aminotransferase (ALT/SGPT) 18, Alkaline Phosphatase 63, Total Bilirubin 0.5, Total Protein 7.1, Albumin 3.2, Red Blood Count 3.64 L, Mean Corpuscular Volume 99.8 H, Mean Corpuscular Hemoglobin 32.7, Mean Corpuscular Hemoglobin Concent 32.8, Red Cell Distribution Width 13.9, Neutrophils (%) (Auto) 32.4 L, Lymphocytes (%) (Auto) 51.9 H, Monocytes (%) (Auto) 8.8 H, Eosinophils (%) (Auto ) 4.2 H, Basophils (%) (Auto) 0.7, Neutrophils # (Auto) 2.1, Lymphocytes # (Auto ) 3.5, Monocytes # (Auto) 0.6, Eosinophils # (Auto) 0.3, Basophils # (Auto) 0.0 Allergies Allergies Coded Allergies Codeine (Unverified Adverse Reaction, Mild, RESTLESSNESS, 11/11/15) DEAN WOLFE DO Jan 25, 2016 10:34 PRINCE CHAPMAN MD Jan 26, 2016 15:09
[2016-01-25] MEDS ORDERED: IPRATROPIUM 0.5MG/ALBUTEROL 2.5MG INH SOL UD 3ML (DUONEB)(J7620) INH PRN (12:00)
[2016-01-25 14:00] VITALS: BP 107/59
--- NOTE | 2016-01-25 18:17 | CR ---
DATE OF CONSULTATION: 01/24/2016 CONSULTATION REPORT FOR: Dr. Rasheeda Farrell. REASON FOR CONSULTATION: The patient is bizarre and has a history of mental illness. VITAL SIGNS: Temperature 96.4, pulse 69, respiratory rate 17, blood pressure 92/47, pulse oximetry 100% on room air. LABORATORY RESULTS: CBC with differential within normal limits except RBC low at 3.6, hemoglobin low at 11.9, hematocrit low at 36.3, MCV high at 99.8, neutrophil percentage low at 32.4, lymphocyte percentage high at 51.9, monocyte percentage high at 8.8, eosinophil percentage high at 4.2. CMP, including TSH, within normal limits except sodium low at 134, potassium low at 3.4, anion gap low at 6 , creatinine low at 0.68, AST low at 14, albumin/globulin ratio low at 0.82. Urine toxicology negative for drugs. Blood alcohol level, Tylenol, and salicylate levels within normal limits. Valproic acid level 23.9, which is low, on 01/23/2016 at 11 p.m. Urinalysis: Azucena, turbid, trace ketones, 1+ blood, 2+ urobilinogen. Head CT scan showed no acute pathology. CURRENT MEDICATIONS: - Risperdal 0.5 mg by mouth twice a day - Haldol intramuscular (IM) as needed for agitation - Depakote ER 2 grams daily - Seroquel 200 mg by mouth twice a day CHIEF COMPLAINT: The patient is hospitalized for alleged aggressive behavior and bizarre behavior. HISTORY OF PRESENTING ILLNESS: As per the emergency department (ED) report, it was noted that the patient was brought in by [place] Police, he was cutting holes in the ochoa, became aggressive towards his , the patient was having a conversation with himself in his room, he appeared visibly agitated, he appeared to be rambling. Police were called by neighbors stating that the patient had been wandering in the middle of the road multiple times throughout the day and the patient had been yelling and rambling incoherently, fighting neighbors. The patient has a recent history of aggressive and threatening behaviors towards family. The patient has been cutting holes in the ochoa for no reason, he has been cutting into electrical areas causing concern that he was going to harm himself. On the unit, the patient has been progressively becoming more coherent and understandable. The patient has remained in good behavior control on the unit. I saw the patient on the medical floor. The patient recognized me instantly. He was very oriented to time, place, and person. He stated he had been medication compliant. He was pressured in speech to a mild degree. He seemed to be jumping from topic to topic, but they were related to his family issues. His pressured speech and tangential speech were more a function of him trying to convey his understanding and concerns around the family issues rather than his mental illness. He was trying to say that he believed his family, who were related to him by marriage with his , were unhappy with him and trying to get rid of him. He states on his part he did make a hole in the wall because he was trying to switch off the air conditioner because he felt his was too cold and he was worried she was not going to do well because of hypothermia, in fact, he was wanting to leave the hospital because of that, however, he was easily redirected. He states he has not been drinking any alcohol. He states he is not bothered about ROHITH, no one has been bothering him since he left the hospital. The patient reports that he has been sleeping well. The patient denies auditory or visual hallucinations. He denies depression, denies anxiety, denies suicidal ideation and homicidal ideation. In the hospital there has been no evidence of over familiarity with staff, sexualized comments or sexually inappropriate behavior. He is sleeping well. There has been no display of verbal or physical aggression from the patient on the unit. I know the patient very well given that he was under my care for several weeks recently. We had done a lengthy family meeting with the funeral planner on the [facility] Inpatient Mental Health Unit (IM). It was noted in the meeting that there was plenty of issues within the family, including high expressed emotion from his family members. It is unclear at this time if patient's current problems during this admission are primarily a reflective of family relational problems. The patient appears to be much better in mental state since his discharge from [facility]. The patient's Depakote levels indicate he was not very compliant with it recently, however, the previous admission to the medical floor on 01/17/2016, his Depakote level was good, indicating that he was taking his Depakote as prescribed. At this time, the patient is denying delusions. The patient has chronic speech issues with his rambling. This was communicated to us at the family meeting during his admission to [facility] as well. MENTAL STATUS EXAMINATION: 65-year-old [place] male, tall height, average build, pleasant, distressed, cooperative, dysphoric, anxious. Affect restricted. Mood congruent. Thought form: Logical, coherent, goal-directed, though tangential at times. Thought content: Denies suicidal ideation (SI), homicidal ideation (HI), delusions. Perception: Denies auditory or visual hallucinations. Insight and judgment fair. Impulse control fair. Alert, conscious, oriented to time, place and person. ASSESSMENT: 65-year-old [place] male hospitalized for aggressive behavior. PLAN: I advised staff on the unit that the social work therapist on the unit should arrange for a family meeting and call me and I will attend the meeting and I will also see if the funeral planner from the mental health unit will be able to attend as she had done the family meeting before. I discussed this plan with Dr. Farrell as well. It appears that the patient does not need acute mental health treatment at this time. It might be a social placement issue due to problems within the family leading to the patient relapsing and not complying with medications and becoming aggressive with family members and refusing services of public health. The patient may benefit from a referral to Adult Protective Services and case management referral. I spoke with Dr. Farrell again on 01/25/16 and 01/26/16. I was informed by Dr. Farrell and SW on the medical floor that the family have a restraining order against the patient and do not want to be involved in a family meeting in person or via telephone. They also do not want him to return to the home. Dr. Farrell informed me that patient had improved even further cognitively and from a mental state standpoint. The patient declined mental health treatment in an in-patient psychiatric facility, when i offered it to him. He doesn't meet criteria for in-patient mental health treatment against his will as he is not posing any danger to himself or others at this point from a psychiatric point of view. He informed me that he understands the importance of complying with his medication and of abstaining from alcohol. He is denying SI or HI. He is denying thoughts to hurt himself or others. Patient needs out-patient psychiatric follow-up and case management services. cc: Rasheeda Farrell MD [facility]
[2016-01-25 22:00] VITALS: BP 100/50
[2016-01-26 06:00] VITALS: BP 115/45
[2016-01-26 06:08] LABS: BASO % 0.7 % (0.0-1.0); EOS # 0.2 K/mm3 (0.0-0.50); EOS % 4.8 % (0.0-3.0); LARGE UNSTAINED CELL # 0.1 K/mm3 (0.0-0.4); LARGE UNSTAINED CELL % 2.3 % (0.0-4.0); LYMPH % 41.3 % (24.0-44.0); MEAN CORPUSCULAR HEMOGLOBIN 33.8 pg (27.0-33.0); MEAN CORPUSCULAR HGB CONC 33.9 g/dl (32.0-36.5); MEAN CORPUSCULAR VOLUME 99.6 fl (80.0-96.0); MONO # 0.4 K/mm3 (0.0-0.8); NEUTROPHILS % 41.9 % (36.0-66.0); PLATELET COUNT, AUTOMATED 180 k/mm3 (172-450); RED CELL DISTRIBUTION WIDTH 13.5 % (11.5-14.5); WHITE BLOOD COUNT 4.8 K/mm3 (5.0-10.0)
[2016-01-26 06:33] LABS: ALBUMIN/GLOBULIN RATIO 0.83 (1.00-1.93); ALKALINE PHOSPHATASE 56 U/L (45-117); ALT/SGPT 17 U/L (12-78); ANION GAP 4 MEQ/L (8-16); AST/SGOT 11 U/L (15-37); BILIRUBIN,TOTAL 0.4 MG/DL (0.2-1.0); BLOOD UREA NITROGEN 11 MG/DL (7-18); CALCIUM LEVEL 8.5 MG/DL (8.8-10.2); CARBON DIOXIDE LEVEL 33 MEQ/L (21-32); CHLORIDE LEVEL 99 MEQ/L (98-107); GLOMERULAR FILTRATION RATE > 60.0 (>49); GLUCOSE, FASTING 88 MG/DL (80-110); POTASSIUM SERUM 3.5 MEQ/L (3.5-5.1); SODIUM LEVEL 136 MEQ/L (136-145); TOTAL PROTEIN 6.6 GM/DL (6.4-8.2)
--- NOTE | 2016-01-26 08:40 | EDDOCDS ---
Physician Documentation [facility] Name: Guicho Chavez Age: 65 yrs Sex: Male : 1950 Arrival Date: 01/23/2016 Time: 22:24 Bed 11 Private MD: Disposition: 01/24/16 06:10 Hospitalization ordered by Sachi Jauregui for Inpatient Admission. Preliminary diagnosis is Wernicke's encephalopathy. - Bed requested for 4 [place]. - Status is Inpatient Admission. [id number] - Condition is Stable. - Problem is new. - Symptoms are unchanged. Historical: - Allergies: NKDA; - Home Meds: 1. aspirin 81 mg Oral TbEC 1 tab once daily 2. brimonidine-timolol ophthalmic 1 drop every 12 hours both eyes 3. Depakote ER 2 grams daily Oral 4. dorzolamide-timolol 22.3-6.8 mg/mL ophthalmic drop 1 drop 2 times per day 5. ipratropium-albuterol 0.5 mg-3 mg(2.5 mg base)/3 mL Inhl nebu as needed as needed 6. Lasix 40 mg Oral tab 1 tab 2 times per day 7. lisinopril 10 mg Oral tab 1 tab once daily 8. thiamine HCl 100 mg Oral tab daily - PMHx: Alcoholism; COPD; Glaucoma; Hypertension; hyponatremia; macrocytic anemia; peripheral neuropathy; - PSHx: Umbilical hernia repair; - Social history: Smoking status: unknown if patient ever smoked tobacco. No barriers to communication noted, The patient speaks fluent Faroese. - Family history: Not pertinent. - : The pt / caregiver states he / she is not on anticoagulants. Home medication list is obtained from the facility [facility]. - Exposure Risk Screening:: None identified. Vital Signs: 01/22 22:28 BP 139 / 90; Pulse 91; Resp 20; Temp 98.4; Pulse Ox 96% ; Pain 0/10; slm 22:30 Weight 72.57 kg / 159.99 lbs; Height 6 ft. 1 in. (185.42 cm); [facility] 01/23 01:51 BP 143 / 83; Pulse 81; Resp 20; Pulse Ox 96% on R/A; slm 06:12 BP 151 / 80; Pulse 73; Resp 18; Temp 96.0(T); Pulse Ox 100% on R/A; Pain 0/10; mdr 07:32 BP 154 / 78; Pulse 76; Resp 18; Temp 96.5(O); Pulse Ox 99% on R/A; Pain 0/10; js13 01/22 22:30 Body Mass Index 21.11 (72.57 kg, 185.42 cm) [facility] MDM: 01/22 22:47 Consult PFS/PSA/Textile Dyer ordered. br1 22:47 Consult PFS/PSA/Textile Dyer: Patient's case requires discussion with on-call br1 Psychiatrist ordered. 22:47 PSA/PFS to call Nursing [employer], to enter patient data on [place] Safe Act if patient br1 involuntarily admitted or transferred for SI or HI ordered. 22:47 Confirm accurate psychiatric medication list and times of last dosage ordered. br1 22:47 Detain Pt Until Medically/PFS Cleared ordered. br1 22:48 Acetaminophen Level Ordered. EDMS 22:48 Basic Metabolic Profile Ordered. EDMS 22:48 Complete Blood Count Ordered. EDMS 22:48 Drug Eval Toxicology ED Only Ordered. EDMS 22:48 Ethyl Alcohol (ethanol) Ordered. EDMS 22:48 Liver Profile Ordered. EDMS 22:48 Salicylate Level Ordered. EDMS 22:48 Thyroid Stimulating Hormone Ordered. EDMS 22:48 DEPAKOTE Ordered. EDMS 23:56 MHE Legal paperwork was scanned into [employer] and attached to record. [facility] 01/23 00:05 Acetaminophen Level Reviewed. br1 00:05 Basic Metabolic Profile Reviewed. br1 00:05 Complete Blood Count Reviewed. br1 00:05 Salicylate Level Reviewed. br1 00:05 DEPAKOTE Reviewed. br1 00:05 Drug Eval Toxicology ED Only Reviewed. br1 00:05 Ethyl Alcohol (ethanol) Reviewed. br1 00:05 Liver Profile Reviewed. br1 00:05 Thyroid Stimulating Hormone Reviewed. br1 00:09 Thiamine 100 mg PO once ordered. br1 00:13 CT Head Without Contrast Ordered. EDMS 00:16 BED REQUEST+ADM ordered. EDMS 05:16 REGULAR DIET PLASTIC HONG+DIET ordered. EDMS 06:02 Admission / Observation Status ordered. EDMS 06:02 URINALYSIS Ordered. EDMS 06:03 AMMONIA Ordered. EDMS 06:07 [facility] Payment Agreement was scanned into [employer] and attached to record. ers 06:11 IV Saline Lock ordered. br1 06:12 Financial registration complete. ers 07:28 REGULAR DIET ordered. EDMS 11:35 T-Sheet-- Draft Copy was scanned into [employer] and attached to record. gb 01/24 09:44 Radiology Report was scanned into [employer] and attached to record. gb Administered Medications: 01/23 00:26 Drug: Thiamine 100 mg [thiamine HCl 100 mg tablet (1 tabs)] Route: PO; slm Signatures: Dispatcher [employer] EDMS Maureen Ariza, Reg Reg gb Michael Guaman MD MD br1 Sachi Ferguson, PSA PSA hm1 Nava Garcia,RN RN js13 Gladys Rashid,RN RN ls2 Gladys Mata, RN RN sls2 Nohelia Trent ers Naomi Alvarez LPN slm The chart was reviewed and I authenticate all verbal orders and agree with the evaluation and treatment provided.Corrections: (The following items were deleted from the chart) 06:18 06:03 VALPROIC ACID (DEPAKOTE) ordered. EDMS EDMS 07:28 06:02 REGULAR DIET ordered. EDMS EDMS Attachments: 01/23 06:07 [facility] Payment Agreement ers 11:35 T-Sheet-- Draft Copy gb Chart Complete MTDD
--- NOTE | 2016-01-26 08:40 | EDDOCDS ---
Nurse's Notes [facility] Name: Guicho Chavez Age: 65 yrs Sex: Male : 1950 Arrival Date: 01/23/2016 Time: 22:24 Bed 11 Private MD: Diagnosis: Wernicke's encephalopathy Presentation: 01/22 22:42 Presenting complaint: patient was brought in by [email or web address] police, patient was cutting ls2 wholes in his ochoa, became aggressive towards his , patient is the room having a conversation with himself at this time. Mental Health Triage Level Level 2: The patient is visibly agitated and appears to be potentially at risk. Suicide/Homicide risk assessment- the patient denies having any suicidal and/or homicidal ideations. Status Patient is not a on site services specialist or dependent. Transition of care: patient was not received from another setting of care. 22:42 Acuity: GEORGE Level 3 ls2 22:42 Method Of Arrival: Police Car ls2 Triage Assessment: 22:45 General: Appears in no apparent distress, Behavior is agitated, anxious, inappropriate ls2 for age. Pain: Denies pain. The patient is triaged at the bedside. See Assessment in Nurses Notes section of ED record. Neurological: Level of Consciousness is awake, alert, confused, Oriented to person, Moves all extremities. Gait is steady. Respiratory: Airway is patent Respiratory effort is even, unlabored, Respiratory pattern is regular, symmetrical. GI: Abdomen is flat, non- distended. Derm: Skin is pink, warm & dry. Historical: - Allergies: NKDA; - Home Meds: 1. aspirin 81 mg Oral TbEC 1 tab once daily 2. brimonidine-timolol ophthalmic 1 drop every 12 hours both eyes 3. Depakote ER 2 grams daily Oral 4. dorzolamide-timolol 22.3-6.8 mg/mL ophthalmic drop 1 drop 2 times per day 5. ipratropium-albuterol 0.5 mg-3 mg(2.5 mg base)/3 mL Inhl nebu as needed as needed 6. Lasix 40 mg Oral tab 1 tab 2 times per day 7. lisinopril 10 mg Oral tab 1 tab once daily 8. thiamine HCl 100 mg Oral tab daily - PMHx: Alcoholism; COPD; Glaucoma; Hypertension; hyponatremia; macrocytic anemia; peripheral neuropathy; - PSHx: Umbilical hernia repair; - Social history: Smoking status: unknown if patient ever smoked tobacco. No barriers to communication noted, The patient speaks fluent Hong Konger. - Family history: Not pertinent. - : The pt / caregiver states he / she is not on anticoagulants. Home medication list is obtained from the facility MAR. - Exposure Risk Screening:: None identified. Screenin:45 Screening information is obtained from prior medical records. Fall risk: At risk due to ls2 apparent cognitive impairment, The following interventions are performed due to a positive Fall Risk Screen: Fall Risk is added to Special Handling on the patient Summary Screen. A Fall Risk Bracelet was applied to the patient. Side Rails are placed in the up position. A Call Meeks is given with instruction to call for help when getting out of bed. Fall Alert bracelet is placed on the patient. Assistance ADL's: requires no assistance with activities of daily living. Abuse/DV Screen: The patient / caregiver reports he/she is: not in a situation that causes fear, pain or injury. Nutritional screening: No deficits noted. Advance Directives: Currently, there is no health care proxy. home support is adequate. Assessment: 22:45 General: Appears in no apparent distress, Behavior is agitated, anxious, inappropriate ls2 for age. Pain: Unable to use pain scale. Does not appear to understand pain scale. Neurological: Level of Consciousness is awake, alert, Oriented to person, place, time. Respiratory: Airway is patent Respiratory effort is even, unlabored, Respiratory pattern is regular, symmetrical. GI: Abdomen is non- distended. Derm: Skin is pink, warm & dry. 22:45 General: patient appears to be confused and is talking to himself at this time . ls2 22:54 General: Appears in no apparent distress, Behavior is anxious, inappropriate for age, slm pt laying on stretcher rambling talking to self security observing . 01/23 00:27 General: Appears in no apparent distress, Behavior is restless. General: pt sitting in slm chair talking to self security observing . Neurological: Level of Consciousness is awake, confused, Oriented to person. Respiratory: Airway is patent Respiratory effort is even, unlabored. GI: 01:20 General: Appears in no apparent distress, comfortable, Behavior is cooperative. slm General: pt resting on stretcher security observing . Respiratory: Airway is patent Respiratory effort is even, unlabored. 01:51 General: Appears in no apparent distress, Behavior is cooperative, pt returned from CT slm resting on stretcher denies needs security observing . 02:45 General: Appears in no apparent distress, comfortable, Behavior is cooperative. slm General: security observing . Respiratory: Airway is patent Respiratory effort is even, unlabored. 04:03 General: Appears in no apparent distress, Behavior is cooperative, inappropriate for slm age. General: pt sitting in chair rambling to self security observing . Respiratory: Airway is patent Respiratory effort is even, unlabored. 05:00 General: Appears in no apparent distress, Behavior is cooperative. General: pt sitting slm in chair talking to self denies needs security observing . Respiratory: Airway is patent Respiratory effort is even, unlabored. 05:41 General: Appears in no apparent distress, Behavior is cooperative, Dr into see pt . slm 06:15 General: Appears in no apparent distress, comfortable, Behavior is cooperative. slm General: pt sitting on chair continuously talking to self safety maintained staff observing . Neurological: Level of Consciousness is awake, obeys commands, Oriented to person. Respiratory: Airway is patent Respiratory effort is even, unlabored. 06:45 General: Appears in no apparent distress, comfortable, Behavior is anxious, restless, js13 very talkative. Pain: Denies pain. Neurological: Level of Consciousness is awake, alert, obeys commands, Oriented to person, place, time. Respiratory: Airway is patent Respiratory effort is even, unlabored, Respiratory pattern is regular, symmetrical. Derm: Skin is pink, warm & dry. 07:30 General: Appears in no apparent distress, comfortable, Behavior is cooperative, js13 restless, very talkative. Pain: Denies pain. Neurological: Level of Consciousness is awake, alert, obeys commands. Respiratory: Airway is patent Respiratory effort is even, unlabored, Respiratory pattern is regular, symmetrical. Derm: Skin is pink, warm & dry. Mental Health Eval: 01/22 23:50 Referral Information: Evaluation referral is generated by a police agency: [facility]. The patient was referred for evaluation because Police were called by neighbors reporting that pt had been wandering in the middle of the road multiple times throughout the day. Pt has also been yelling and rambling incoherently, frightening neighbors. Pt has a recent history of aggressive and threatening behaviors toward family. Today pt has also been cutting holes in his ochoa for no apparent reason, had been cutting into electrical areas causing concern that he was going to harm himself. . Vital Signs: 22:28 BP 139 / 90; Pulse 91; Resp 20; Temp 98.4; Pulse Ox 96% ; Pain 0/10; [facility] 22:30 Weight 72.57 kg; Height 6 ft. 1 in. (185.42 cm); [facility] 01/23 01:51 BP 143 / 83; Pulse 81; Resp 20; Pulse Ox 96% on R/A; [facility] 06:12 BP 151 / 80; Pulse 73; Resp 18; Temp 96.0(T); Pulse Ox 100% on R/A; Pain 0/10; mdr 07:32 BP 154 / 78; Pulse 76; Resp 18; Temp 96.5(O); Pulse Ox 99% on R/A; Pain 0/10; js13 01/22 22:30 Body Mass Index 21.11 (72.57 kg, 185.42 cm) [facility] Vitals: 01/22 22:28 Log In time N/A- police car arrival. Does not meet SIRS criteria. [facility] ED Course: 22:26 Patient visited by Cuca Kruger. [facility] 22:[address] [facility] 22:27 Alexus Cardoso,RN is Primary Nurse. [facility] 22:27 Patient moved to [place] [id number] 22:44 Triage Initiated ls2 22:45 Unable to instruct regarding the plan of care due to patient condition. Patient has ls2 correct armband on for positive identification. Placed in gown. Placed in psych safe attire. Bed in low position. Call light in reach. Side rails up X 1. 22:45 No IV's were initiated during this patient's visit. No procedures done that require ls2 assistance. 22:47 Patient visited by Gladys Rashid RN. ls2 22:55 Patient visited by Naomi Alvarez LPN. slm 23:05 Patient visited by Naomi Alvarez LPN. slm 23:14 Patient visited by Ancelmo Eason PCA. mdr 23:19 Patient visited by Ancelmo Eason PCA. mdr 23:19 Patient visited by Ancelmo Eason PCA. mdr 23:19 Assisted to bathroom. mdr 23:26 Labs drawn. (by ED staff). Sent per order to lab. Urine collected. Urine specimen sent slm to lab. 23:34 Patient visited by Ancelmo Eason PCA. mdr 23:40 Michael Guaman MD is Attending Physician. br1 23:50 Patient visited by Michael Guaman MD. br1 23:56 MHE Legal paperwork was scanned into [employer] and attached to record. hm1 01/23 00:05 Patient visited by Ancelmo Eason PCA. mdr 00:12 Primary Nurse role handed off by Alexus Cardoso RN collins 00:15 Patient visited by Ancelmo Eason PCA. mdr 00:26 Naomi Alvarez LPN is Primary Nurse. slm 00:28 Patient visited by Naomi Alvarez LPN. slm 00:50 Patient visited by Ancelmo Eason PCA. mdr 01:36 Patient visited by Naomi Alvarez LPN. slm 01:[address] slm 01:51 Patient moved to BHU1 slm 01:52 Patient visited by Naomi Alvarez LPN. slm 01:53 Patient visited by Naomi Alvarez LPN. slm 02:03 Patient visited by Naomi Alvarez LPN. slm 02:34 Patient visited by Ancelmo Eason PCA. mdr 02:45 Patient visited by Naomi Alvarez LPN. slm 02:51 CT Head Without Contrast Returned. EDMS 02:53 Patient visited by Ancelmo Eason PCA. mdr 03:04 Patient visited by Ancelmo Eason PCA. mdr 03:20 Patient visited by Ancelmo Eason PCA. mdr 03:46 Patient visited by Ancelmo Eason PCA. mdr 04:00 Patient visited by Ancelmo Eason PCA. mdr 04:04 Patient visited by Naomi Alvarez LPN. slm 04:38 Patient visited by Ancelmo Eason PCA. mdr 04:48 Patient visited by Ancelmo Eason PCA. mdr 04:59 Patient visited by Ancelmo Eason PCA. mdr 05:14 Patient visited by Ancelmo Eason PCA. mdr 05:22 Patient visited by Naomi Alvarez LPN. slm 05:35 Patient visited by Ancelmo Eason PCA. mdr 05:41 Patient visited by Ancelmo Eason PCA. mdr 05:42 Patient visited by Naomi Alvarez LPN. slm 05:56 Patient visited by Ancelmo Eason PCA. mdr 06:07 [facility] Payment Agreement was scanned into [employer] and attached to record. ers 06:10 Sachi Jauregui is Hospitalizing Provider. br1 06:12 Patient visited by Ancelmo Eason PCA. mdr 06:16 Patient visited by Naomi Alvarez LPN. slm 06:18 Nava Garcia,RN is Primary Nurse. js13 06:18 Patient moved to 11 13 06:33 AMMONIA Sent. js13 06:34 URINALYSIS Sent. js13 06:35 Inserted saline lock: 18 gauge in left antecubital area and blood collected. The js13 patient tolerated the procedure well. Labs drawn. (by ED staff). Sent per order to lab. 11:35 T-Sheet-- Draft Copy was scanned into [employer] and attached to record. gb 01/24 09:44 Radiology Report was scanned into [employer] and attached to record. gb Administered Medications: 01/23 00:26 Drug: Thiamine 100 mg [thiamine HCl 100 mg tablet (1 tabs)] Route: PO; sl Attachments: 01/22 23:56 E Legal paperwork hm1 Order Results: Lab Order: Acetaminophen Level; SPEC'M 01/23/16 22:52 Test: ACETAMINOPHEN LEVEL; Value: < 2.0; Range: 10.0-30.0; Abnormal: Below low normal; Units: UG/ML; Status: F Lab Order: Basic Metabolic Profile; SPEC'M 01/23/16 22:52 Test: GLUCOSE, FASTING; Value: 96; Range: 80-110; Units: MG/DL; Status: F Test: BLOOD UREA NITROGEN; Value: 12; Range: 7-18; Units: MG/DL; Status: F Test: CREATININE FOR GFR; Value: 0.70; Range: 0.70-1.30; Units: MG/DL; Status: F Test: GLOMERULAR FILTRATION RATE; Value: > 60.0; Range: >49; Status: F Test: SODIUM LEVEL; Value: 132; Range: 136-145; Abnormal: Below low normal; Units: MEQ/L; Status: F Test: POTASSIUM SERUM; Value: 4.4; Range: 3.5-5.1; Units: MEQ/L; Status: F Test: CHLORIDE LEVEL; Value: 95; Range: 98-107; Abnormal: Below low normal; Units: MEQ/L; Status: F Test: CARBON DIOXIDE LEVEL; Value: 27; Range: 21-32; Units: MEQ/L; Status: F Test: ANION GAP; Value: 10; Range: 8-16; Units: MEQ/L; Status: F Test: CALCIUM LEVEL; Value: 9.0; Range: 8.8-10.2; Units: MG/DL; Status: F Test Note: ; Units are mL/min/1.73 m2 Chronic Kidney Disease Staging per NKF: Stage I & II GFR >=60 Normal to Mildly Decreased Stage III GFR 30-59 Moderately Decreased Stage IV GFR 15-29 Severely Decreased Stage V GFR <15 Very Little GFR Left ESRD GFR <15 on TAX EXAMINER Lab Order: Complete Blood Count; [facility] 01/23/16 22:52 Test: WHITE BLOOD COUNT; Value: 5.9; Range: 5.0-10.0; Units: K/mm3; Status: F Test: RED BLOOD COUNT; Value: 3.47; Range: 4.70-6.10; Abnormal: Below low normal; Units: M/mm3; Status: F Test: HEMOGLOBIN; Value: 11.5; Range: 14.0-18.0; Abnormal: Below low normal; Units: g/dl; Status: F Test: HEMATOCRIT; Value: 34.9; Range: 42.0-52.0; Abnormal: Below low normal; Units: %; Status: F Test: MEAN CORPUSCULAR VOLUME; Value: 100.6; Range: 80.0-96.0; Abnormal: Above high normal; Units: fl; Status: F Test: MEAN CORPUSCULAR HEMOGLOBIN; Value: 33.0; Range: 27.0-33.0; Units: pg; Status: F Test: MEAN CORPUSCULAR HGB CONC; Value: 32.8; Range: 32.0-36.5; Units: g/dl; Status: F Test: RED CELL DISTRIBUTION WIDTH; Value: 13.7; Range: 11.5-14.5; Units: %; Status: F Test: PLATELET COUNT, AUTOMATED; Value: 144; Range: 172-450; Abnormal: Below low normal; Units: k/mm3; Status: F Lab Order: Drug Eval Toxicology ED Only; SPEC'M 01/23/16 22:52 Test: AMPHETAMINES LEVEL URINE; Value: NEGATIVE; Range: NEGATIVE; Status: F Test: M-AMPHETAMINES LEVEL URINE; Value: NEGATIVE; Range: NEGATIVE; Status: F Test: BARBITURATES URINE; Value: NEGATIVE; Range: NEGATIVE; Status: F Test: BENZODIAZEPINES URINE; Value: NEGATIVE; Range: NEGATIVE; Status: F Test: CANNABINOIDS URINE; Value: NEGATIVE; Range: NEGATIVE; Status: F Test: COCAINE METABOLITE URINE; Value: NEGATIVE; Range: NEGATIVE; Status: F Test: OPIATES URINE; Value: NEGATIVE; Range: NEGATIVE; Status: F Test: PHENCYCLIDINE URINE; Value: NEGATIVE; Range: NEGATIVE; Status: F Test: TRICYCLIC ANTIDEPRESS URINE; Value: NEGATIVE; Range: NEGATIVE; Status: F Test Note: ; ALL PRESUMPTIVE POSITIVE FINDINGS ARE UNCONFIRMED NORMAL VALUES THRESHOLD IN NG/ML AMPHETAMINES 1000 METHAMPHETAMINES 1000 BARBITURATES 300 BENZODIAZEPINES 300 CANNABINOIDS (THC) 50 COCAINE METABOLITE 300 METHADONE 300 OPIATES 300 PHENCYCLIDINE 25 TRICYCLIC ANTIDEPRESSANTS 1000 RESULTS ARE FOR MEDICAL PURPOSES ONLY. ALL URINE SPECIMENS WILL BE SAVED FOR 3 DAYS. IF CONFIRMATION OF A PRESUMPTIVE POSTIVE SCREEN RESULT IS DESIRED, CALL CHEMISTRY ([phone]) AND REQUEST URINE TO BE SENT TO REFERENCE LAB. FOR A LIST OF CLOSELY RELATED COMPOUNDS PLEASE CALL THE LAB. Lab Order: Ethyl Alcohol (ethanol); SPEC'M 01/23/16 22:52 Test: ETHYL ALCOHOL (ETHANOL); Value: < 0.003; Range: 0.000-0.010; Units: %; Status: F Lab Order: Liver Profile; SPEC'M 01/23/16 22:52 Test: AST/SGOT; Value: 16; Range: 15-37; Units: U/L; Status: F Test: ALT/SGPT; Value: 21; Range: 12-78; Units: U/L; Status: F Test: ALKALINE PHOSPHATASE; Value: 58; Range: 45-117; Units: U/L; Status: F Test: BILIRUBIN,TOTAL; Value: 0.7; Range: 0.2-1.0; Units: MG/DL; Status: F Test: BILIRUBIN,DIRECT; Value: 0.2; Range: 0.0-0.2; Units: MG/DL; Status: F Test: TOTAL PROTEIN; Value: 7.0; Range: 6.4-8.2; Units: GM/DL; Status: F Test: ALBUMIN; Value: 3.5; Range: 3.2-5.2; Units: GM/DL; Status: F Test: ALBUMIN/GLOBULIN RATIO; Value: 1.00; Range: 1.00-1.93; Status: F Lab Order: Salicylate Level; [facility] 01/23/16 22:52 Test: SALICYLATE LEVEL; Value: 2.0; Range: 5.0-30.0; Abnormal: Below low normal; Units: MG/DL; Status: F Lab Order: Thyroid Stimulating Hormone; [facility] 01/23/16 22:52 Test: THYROID STIMULATING HORMONE; Value: 2.640; Range: 0.358-3.740; Units: uIU/ML; Status: F Lab Order: DEPAKOTE; [facility] 01/23/16 22:52 Test: VALPROIC ACID (DEPAKOTE); Value: 23.9; Range: 50.0-100.0; Abnormal: Below low normal; Units: UG/ML; Status: F Lab Order: URINALYSIS; [facility] 01/23/16 22:52 Test: APPEARANCE, URINE; Value: TURBID; Range: CLEAR; Abnormal: Above high normal; Status: F Test: COLOR, URINE; Value: ALEJANDRA; Range: YELLOW; Status: F Test: PH,URINE; Value: 6.0; Range: 5.0-9.0; Units: UNITS; Status: F Test: SPECIFIC GRAVITY URINE AUTO; Value: 1.018; Range: 1.002-1.035; Status: F Test: PROTEIN, URINE AUTO; Value: NEGATIVE; Range: NEGATIVE; Units: mg/dL; Status: F Test: GLUCOSE, URINE (UA) AUTO; Value: NEGATIVE; Range: NEGATIVE; Units: mg/dL; Status: F Test: KETONE, URINE AUTO; Value: TRACE; Range: NEGATIVE; Abnormal: Above high normal; Units: mg/dL; Status: F Test: UROBILINOGEN, URINE AUTO; Value: 2.0; Range: 0.0-2.0; Abnormal: Above high normal; Units: mg/dL; Status: F Test: BILIRUBIN, URINE AUTO; Value: NEGATIVE; Range: NEGATIVE; Status: F Test: NITRITE, URINE AUTO; Value: NEGATIVE; Range: NEGATIVE; Status: F Test: LEUKOCYTE ESTERASE, URINE AUTO; Value: NEGATIVE; Range: NEGATIVE; Status: F Test: BLOOD, URINE BLOOD; Value: 1+; Range: NEGATIVE; Abnormal: Above high normal; Status: F Test: WBC, URINE AUTO; Value: 3; Range: 0-3; Units: /HPF; Status: F Test: RBC, URINE AUTO; Value: 3; Range: 0-3; Units: /HPF; Status: F Test: BACTERIA, URINE AUTO; Value: NEGATIVE; Range: NEGATIVE; Status: F Test: SQUAMOUS EPITHELIAL CELL UR AU; Value: 1; Range: 0-6; Units: /HPF; Status: F Test: MUCUS, URINE; Value: SMALL; Range: NEGATIVE; Status: F Test: HYALINE CAST, URINE AUTO; Value: 0; Range: 0-1; Units: /LPF; Status: F Test: CALCIUM OXALATE CRYSTALS; Value: SMALL; Range: NONE; Status: F Lab Order: AMMONIA; SPEC'M 01/24/16 06:30 Test: AMMONIA; Value: < 25; Range: <32; Units: uMOL/L; Status: F Radiology Order: CT Head Without Contrast Test: CT Head Without Contrast REASON FOR EXAMINATION: altered mental status; ; CLINICAL HISTORY: AMS.; TECHNIQUE: Multiple axial brain CT scan sections were obtained from base to vertex without contrast a; dministration.; COMMENTS:; The study shows normal configuration of sella turcica. There are no intra or extra-axial collections.; There is no mass effect or midline shift. There is no evidence of hematoma formation. No hydrocephal; us is present. No abnormal calcifications are noted.; No significant abnormalities are seen either in the posterior fossa or supratentorial compartment.; The sinuses and mastoid air cells are patent.; IMPRESSION:; No evidence of acute intracranial pathology.; Thank you for your kind referral of this patient.; ; Outcome: 01/22 23:27 Property removed, inventory done, secured in belongings bag- placed in locked locker. [facility] 01/23 01:47 CT Study completed. [facility] 06:10 Decision to Hospitalize by Provider. br1 06:44 Discharge Assessment: patient administered narcotics - no. The following High Risk [facility] Discharge criteria are identified: None. Admitted to Med/Surg accompanied by tech, via wheelchair, with chart. Condition: stable. Admission hand-off: Report Faxed. 07:40 Patient left the ED. [facility] Signatures: Dispatcher [employer] EDMS Maureen Ariza, Reg Reg Michael Owen MD MD br1 Sachi Ferguson, PSA PSA hm1 Ling Beck, HEALTH CLUB ATTENDANT HEALTH CLUB ATTENDANT collins Nava Garcia,RN RN js13 Naomi Alvarez,CNC PROGRAMMER CNC PROGRAMMER Gladys Diaz,RN RN ls2 Nohelia Trent, Ancelmo Riggs, HEALTH CLUB ATTENDANT HEALTH CLUB ATTENDANT mdr Chart Complete MTDD
--- NOTE | 2016-01-26 08:41 | EDDOCDS ---
Physician Documentation [facility] Name: Guicho Chavez Age: 65 yrs Sex: Male : 1950 Arrival Date: 01/23/2016 Time: 22:24 Bed 11 Private MD: Disposition: 01/24/16 06:10 Hospitalization ordered by Sachi Jauregui for Inpatient Admission. Preliminary diagnosis is Wernicke's encephalopathy. - Bed requested for 4 [place]. - Status is Inpatient Admission. [id number] - Condition is Stable. - Problem is new. - Symptoms are unchanged. Historical: - Allergies: NKDA; - Home Meds: 1. aspirin 81 mg Oral TbEC 1 tab once daily 2. brimonidine-timolol ophthalmic 1 drop every 12 hours both eyes 3. Depakote ER 2 grams daily Oral 4. dorzolamide-timolol 22.3-6.8 mg/mL ophthalmic drop 1 drop 2 times per day 5. ipratropium-albuterol 0.5 mg-3 mg(2.5 mg base)/3 mL Inhl nebu as needed as needed 6. Lasix 40 mg Oral tab 1 tab 2 times per day 7. lisinopril 10 mg Oral tab 1 tab once daily 8. thiamine HCl 100 mg Oral tab daily - PMHx: Alcoholism; COPD; Glaucoma; Hypertension; hyponatremia; macrocytic anemia; peripheral neuropathy; - PSHx: Umbilical hernia repair; - Social history: Smoking status: unknown if patient ever smoked tobacco. No barriers to communication noted, The patient speaks fluent Cambodian. - Family history: Not pertinent. - : The pt / caregiver states he / she is not on anticoagulants. Home medication list is obtained from the facility [facility]. - Exposure Risk Screening:: None identified. Vital Signs: 01/22 22:28 BP 139 / 90; Pulse 91; Resp 20; Temp 98.4; Pulse Ox 96% ; Pain 0/10; slm 22:30 Weight 72.57 kg / 159.99 lbs; Height 6 ft. 1 in. (185.42 cm); [facility] 01/23 01:51 BP 143 / 83; Pulse 81; Resp 20; Pulse Ox 96% on R/A; slm 06:12 BP 151 / 80; Pulse 73; Resp 18; Temp 96.0(T); Pulse Ox 100% on R/A; Pain 0/10; mdr 07:32 BP 154 / 78; Pulse 76; Resp 18; Temp 96.5(O); Pulse Ox 99% on R/A; Pain 0/10; js13 01/22 22:30 Body Mass Index 21.11 (72.57 kg, 185.42 cm) [facility] MDM: 01/22 22:47 Consult PFS/PSA/Government Professor ordered. br1 22:47 Consult PFS/PSA/Government Professor: Patient's case requires discussion with on-call br1 Psychiatrist ordered. 22:47 PSA/PFS to call Nursing Legal Specialist, to enter patient data on [place] Safe Act if patient br1 involuntarily admitted or transferred for SI or HI ordered. 22:47 Confirm accurate psychiatric medication list and times of last dosage ordered. br1 22:47 Detain Pt Until Medically/PFS Cleared ordered. br1 22:48 Acetaminophen Level Ordered. EDMS 22:48 Basic Metabolic Profile Ordered. EDMS 22:48 Complete Blood Count Ordered. EDMS 22:48 Drug Eval Toxicology ED Only Ordered. EDMS 22:48 Ethyl Alcohol (ethanol) Ordered. EDMS 22:48 Liver Profile Ordered. EDMS 22:48 Salicylate Level Ordered. EDMS 22:48 Thyroid Stimulating Hormone Ordered. EDMS 22:48 DEPAKOTE Ordered. EDMS 23:56 MHE Legal paperwork was scanned into [employer] and attached to record. [facility] 01/23 00:05 Acetaminophen Level Reviewed. br1 00:05 Basic Metabolic Profile Reviewed. br1 00:05 Complete Blood Count Reviewed. br1 00:05 Salicylate Level Reviewed. br1 00:05 DEPAKOTE Reviewed. br1 00:05 Drug Eval Toxicology ED Only Reviewed. br1 00:05 Ethyl Alcohol (ethanol) Reviewed. br1 00:05 Liver Profile Reviewed. br1 00:05 Thyroid Stimulating Hormone Reviewed. br1 00:09 Thiamine 100 mg PO once ordered. br1 00:13 CT Head Without Contrast Ordered. EDMS 00:16 BED REQUEST+ADM ordered. EDMS 05:16 REGULAR DIET PLASTIC HONG+DIET ordered. EDMS 06:02 Admission / Observation Status ordered. EDMS 06:02 URINALYSIS Ordered. EDMS 06:03 AMMONIA Ordered. EDMS 06:07 [facility] Payment Agreement was scanned into [employer] and attached to record. ers 06:11 IV Saline Lock ordered. br1 06:12 Financial registration complete. ers 07:28 REGULAR DIET ordered. EDMS 11:35 T-Sheet-- Draft Copy was scanned into [employer] and attached to record. gb 01/24 09:44 Radiology Report was scanned into [employer] and attached to record. gb Administered Medications: 01/23 00:26 Drug: Thiamine 100 mg [thiamine HCl 100 mg tablet (1 tabs)] Route: PO; slm Signatures: Dispatcher [employer] EDMS Maureen Ariza, Reg Reg gb Michael Guaman MD MD br1 Sachi Ferguson, PSA PSA hm1 Nava Garcia,RN RN js13 Gladys Rashid,RN RN ls2 Gladys Mata, RN RN sls2 Nohelia Trent ers Naomi Alvarez LPN slm The chart was reviewed and I authenticate all verbal orders and agree with the evaluation and treatment provided.Corrections: (The following items were deleted from the chart) 06:18 06:03 VALPROIC ACID (DEPAKOTE) ordered. EDMS EDMS 07:28 06:02 REGULAR DIET ordered. EDMS EDMS Attachments: 01/23 06:07 [facility] Payment Agreement ers 11:35 T-Sheet-- Draft Copy gb Chart Complete MTDD
[2016-01-26] MEDS: ASPIRIN 81 MG ENTERIC TAB PO SCH (09:42)
[2016-01-26] MEDS: FOLIC ACID 1 MG TAB PO SCH (09:43)
[2016-01-26] MEDS: MULTIVITAMINS/MINERALS THERAP 1 TAB PO SCH (09:43)
[2016-01-26] MEDS: DIVALPROEX 500MG *ER* TAB PO SCH (09:43)
[2016-01-26] MEDS: risperiDONE 0.5 MG TAB PO SCH ×2 (09:43→20:38)
[2016-01-26] MEDS: FUROSEMIDE 40 MG TAB PO SCH ×2 (09:43→20:38)
[2016-01-26] MEDS: QUEtiapine FUMARATE 200 MG TAB PO SCH ×2 (09:43→20:38)
[2016-01-26] MEDS: THIAMINE 100 MG TAB PO SCH (09:43)
[2016-01-26] MEDS: COSOPT OCUMETER PLUS 10ML (DORZOLAMIDE/TIMOLOL) OU SCH ×2 (09:44→20:39)
--- NOTE | 2016-01-26 09:50 | CR ---
DATE OF CONSULTATION: 01/25/2016 REFERRING PHYSICIAN: Dr. Rasheeda Farrell HISTORY: The patient is a 65-year-old male who was admitted to the hospital yesterday because of aggressive behavior. The patient is a very poor historian and this history is through his granddaughter. According to her, he was first noticed to have problems with his memory about 3 to 4 months ago. He was brought to the emergency room several times and also taken to [place] where he was admitted and treated accordingly. His granddaughter states that he was he has been diagnosed with alcoholic dementia, and he also has had seizures in the past. He had an electroencephalogram (EEG) study performed about 3 weeks ago, which did not show any seizure-like activity. He has also been quite forgetful since August of this year. He has been drinking much more than before. Lately, he was noted to be physically aggressive. He was threatening his family that he would kill them. He also threatened that he would burn the house. He cut holes in the [place] of his house with a chainsaw. At one time, he shut the main water line to the house. He would refuse sleeping for up to 6 to 7 days at a time. He was also not eating at that time. The granddaughter told me that he tried to open [employer], which he thought was his own. Since his admission here, the family has felt that they could not take care of him. He essentially needs placement in a fdc or in a home. Presently, the patient denies having any headache, dizzy spells, vertigo, diplopia and blurred vision. He says that he wants to live with his and does not want to go anywhere else. There is no neck or low back pain. He denies weakness or numbness and tingling in his upper and lower extremities. He had an MRI of the brain performed on 11/11/2015, which did show diffuse cerebral atrophy with moderate small vessel ischemic disease. MEDICATIONS: His current medications include: - albuterol - Risperdal 0.5 mg twice a day - Haldol 0.5 mg every four hours as needed - multivitamin - thiamine - folic acid - aspirin 81 mg daily - Depakote 2000 mg a day - Cosopt eyedrops - Lasix - lisinopril - Seroquel 200 mg twice a day - Zofran as necessary PAST MEDICAL HISTORY 1. Hypertension. 2. Glaucoma. 3. Chronic obstructive pulmonary disease (COPD). 4. Chronic alcoholism. 5. Macrocytic anemia. 6. Bipolar affective disorder. 7. Alcohol-related dementia. 9. Hernia repair. FAMILY HISTORY: The patient's mother and father are both . He is unable to provide any other history at the present time. PERSONAL AND SOCIAL HISTORY: The patient lived with his family. This included his and granddaughter. There is no history of smoking, but he does drink heavily. REVIEW OF SYSTEMS: All other systems were reviewed and found to be noncontributory. PHYSICAL EXAMINATION: On examination, the patient does not appear in any discomfort. He seems to be pleasant to interact with. His posture is normal. His blood pressure is 110/60. Pulse is 69 per minute. Respirations are 18 per minute. His temperature is 98.4 degrees Fahrenheit. He is 6 feet 1 inch tall. He weighs about 72 kg. His neck is supple. There is no carotid bruit audible. He does not have any tenderness in his cervical spine or lumbar area. His ear, nose and throat examination is normal. Lungs are clear to auscultation. His heart is regular in rhythm. His abdomen is soft and nondistended. There is no ankle edema seen. The peripheral pulses are normally palpable. Neurologically, he is oriented to place. He does not know the day, date or year. He does not cooperate with the mini-mental state examination. Extraocular movements are intact. There is no horizontal or degree nystagmus seen. His pupils are about 3 mm in size and reactive to light. The consensual light reflex is present bilaterally. Visual gallegos could not be tested well. His face is symmetrical. His tongue is midline. His motor examination does not show any focal motor weakness in his upper or lower extremities. There are no resting or postural tremors of the hands seen. His muscle tone is normal. The sensation to fine touch and pinprick appears equal on both sides of the body. Deep tendon reflexes are 1+ and symmetrical with equivocal plantar reflexes. His gait is not tested. DIAGNOSTIC STUDIES: The patient's MRI study of the brain performed on 11/11/2015 was reviewed. This study does show diffuse cerebral atrophy associated with moderate small vessel ischemic disease. His CBC shows a white cell count of 6500, hemoglobin 11.9, hematocrit 36.3 and platelets 177,000. His sodium is 134, potassium 3.4, BUN 9 and creatinine 0.68. His calcium level is 8.8. His magnesium it is 1.9. His liver functions are normal. His tox screen is positive for alcohol. His Depakote level on admission was 23.9. IMPRESSION: 1. Altered mental status. 2. Agitation with restlessness 3. History of alcoholic dementia. 4. Ischemic vascular dementia. 5. Chronic alcoholism 6. History of seizures, stable. PLAN 1. Depakote 2000 mg by mouth daily. 2. Aspirin 81 mg by mouth daily. 3. Folic acid 1 mg by mouth daily. 4. Thiamine 100 mg by mouth daily. 5. Given the patient's current neurological status, it would be difficult to make a definite diagnosis of dementia, although he has been diagnosed with it before. Once his depression and angelica improves, he could be reevaluated at that time. In the meantime, he would be a good candidate for neuropsychiatric evaluation if and when his symptoms clear. Thank you very much for this consultation.
--- NOTE | 2016-01-26 13:05 | IPNPDOC ---
Assessment/Plan Date Seen The patient was seen on 01/26/16. Problems Problems: (1) Bipolar affective disorder Status: Acute Problem Text: Seems to be in manic phase but now much better controlled after being restarted on his medications in the hospital. Was seen by psychiatry yesterday as per their opinion does not need inpatient mental health admission, they had requested family meeting but that is not possible as the patients has a restraining order against him. However pateint would need supervised setting to administer his medications. unsure whether the patient was taking his medications at home or not. Last admission patient refused to go to halfway. He was evaluated by psych and medicine and found to have decisional capacity so he left AMA signed restraining order against him. Family does want to take him back home. Patient was seen by neurology yesterday as per Dr Baldwin dementia cannot be diagnosed until his psychiatric symptoms are controlled and suggested that the diagnosis of dementia has to be given by psychiatry. At present patient's manic symptoms are much well controlled and has capacity to make medical decisions. However as soon as he stops taking his medications he looses his capacity to make meaning full medical or other decisions. It is felt that after discharge patient may not consistently take his medications and may again be back to manic phase requiring re hospitalizations. Ideally patient should be discharged to a supervised setting. (2) Hyponatremia Status: Chronic Response to Treatment: Stable Problem Text: continue with fluid restriction and lasix. (3) HTN (hypertension) Status: Chronic Problem Text: Hypotensive today. Will hold medications (4) Seizure Status: Chronic Problem Text: Continue Depakote. (5) History of alcoholism Status: Chronic (6) Glaucoma Status: Acute Problem Text: Cont home medications, eye drops (7) COPD (chronic obstructive pulmonary disease) Status: Acute Problem Text: Continue inhalers Plan / VTE VTE Prophylaxis Ordered?: Yes Subjective CC/HPI The patient is a 65-year-old male admitted with a reason for visit of Encephalopathy. Events since last encounter patient more coherent today, thought processes more organized is not jumping from topic to topic that much. no complaints wants to go home. Says missed his medications aftr going home. Objective General Exam: : Alert: Cooperative: No Acute Distress Eye Exam: : Conjunctiva & lids normal: EOMI: PERRLANo: Sclera icteric Neck Exam: : SuppleNo: JVD, thyromegaly Chest Exam: : Clear to auscultation: Normal air movement Heart Exam: : Normal S1: Normal S2: Rate Normal: Regular RhythmNo: Murmurs, Rubs Abdomen Exam: : Normal bowel sounds: SoftNo: Hepatospenomegaly, Tenderness Extremity Exam: : Edema (right leg) VS/I&O Vital Sign - Last 24 Hours 01/25/16 01/25/16 01/25/16 01/26/16 14:00 21:00 22:00 06:00 Temp 95.6 96.4 96.8 Pulse 69 69 63 Resp 16 18 17 B/P 107/59 100/50 115/45 Pulse Ox 98 95 98 O2 Delivery Room Air Room Air Room Air Room Air I&O- Last 24 Hours up to 6 AM 01/26/16 05:59 Intake Total 2040 ml Output Total 0 ml Balance 2040 ml Labs 24H Laboratory Tests 2 01/26/16 05:43: Blood Urea Nitrogen 11, Creatinine 0.60L, Sodium Level 136, Potassium Level 3.5 , Chloride Level 99, Carbon Dioxide Level 33H, Calcium Level 8.5L, Aspartate Amino Transf (AST/SGOT) 11L, Alanine Aminotransferase (ALT/SGPT) 17, Alkaline Phosphatase 56, Total Bilirubin 0.4, Total Protein 6.6, Albumin 3.0L, Albumin/ Globulin Ratio 0.83L, Anion Gap 4L, White Blood Count 4.8L, Red Blood Count 3.55L, Hemoglobin 12.0L, Hematocrit 35.3L, Mean Corpuscular Volume 99.6H, Mean Corpuscular Hemoglobin 33.8H, Mean Corpuscular Hemoglobin Concent 33.9, Red Cell Distribution Width 13.5, Platelet Count 180, Neutrophils (%) (Auto) 41.9, Lymphocytes (%) (Auto) 41.3, Monocytes (%) (Auto) 9.0H, Eosinophils (%) (Auto) 4.8H, Basophils (%) (Auto) 0.7, Neutrophils # (Auto) 2.0, Lymphocytes # (Auto) 2.0, Monocytes # (Auto) 0.4, Eosinophils # (Auto) 0.2, Basophils # (Auto) 0.0, Glomerular Filtration Rate > 60.0, Large Unclassified Cells # 0.1, Large Unclassified Cells % 2.3, Magnesium Level 2.0 CBC/BMP Laboratory Tests 01/26/16 05:43 Calcium Level 8.5 L, Aspartate Amino Transf (AST/SGOT) 11 L, Alanine Aminotransferase (ALT/SGPT) 17, Alkaline Phosphatase 56, Total Bilirubin 0.4, Total Protein 6.6, Albumin 3.0 L, Red Blood Count 3.55 L, Mean Corpuscular Volume 99.6 H, Mean Corpuscular Hemoglobin 33.8 H, Mean Corpuscular Hemoglobin Concent 33.9, Red Cell Distribution Width 13.5, Neutrophils (%) (Auto) 41.9, Lymphocytes (%) (Auto) 41.3, Monocytes (%) (Auto) 9.0 H, Eosinophils (%) (Auto) 4.8 H, Basophils (%) (Auto) 0.7, Neutrophils # (Auto) 2.0, Lymphocytes # (Auto) 2.0, Monocytes # (Auto) 0.4, Eosinophils # (Auto) 0.2, Basophils # (Auto) 0.0 Allergies Allergies Coded Allergies Codeine (Unverified Adverse Reaction, Mild, RESTLESSNESS, 11/11/15) PRINCE CHAPMAN MD Jan 26, 2016 12:20
[2016-01-26 22:00] VITALS: BP 122/63
[2016-01-27 06:00] VITALS: BP 121/71
[2016-01-27 06:02] LABS: BASO % 0.6 % (0.0-1.0); EOS # 0.3 K/mm3 (0.0-0.50); EOS % 5.1 % (0.0-3.0); LARGE UNSTAINED CELL # 0.1 K/mm3 (0.0-0.4); LYMPH # 2.1 K/mm3 (1.5-4.5); LYMPH % 42.1 % (24.0-44.0); MEAN CORPUSCULAR HEMOGLOBIN 33.5 pg (27.0-33.0); MEAN CORPUSCULAR HGB CONC 33.4 g/dl (32.0-36.5); MEAN CORPUSCULAR VOLUME 100.3 fl (80.0-96.0); MONO # 0.6 K/mm3 (0.0-0.8); MONO % 11.1 % (0.0-5.0); NEUTROPHILS % 39.2 % (36.0-66.0); PLATELET COUNT, AUTOMATED 188 k/mm3 (172-450); RED CELL DISTRIBUTION WIDTH 13.8 % (11.5-14.5); WHITE BLOOD COUNT 5.1 K/mm3 (5.0-10.0)
[2016-01-27 06:24] LABS: ALBUMIN 2.8 GM/DL (3.2-5.2); ALKALINE PHOSPHATASE 52 U/L (45-117); ALT/SGPT 19 U/L (12-78); ANION GAP 6 MEQ/L (8-16); AST/SGOT 13 U/L (15-37); BILIRUBIN,TOTAL 0.3 MG/DL (0.2-1.0); BLOOD UREA NITROGEN 11 MG/DL (7-18); CALCIUM LEVEL 8.4 MG/DL (8.8-10.2); CARBON DIOXIDE LEVEL 31 MEQ/L (21-32); CHLORIDE LEVEL 100 MEQ/L (98-107); CREATININE FOR GFR 0.69 MG/DL (0.70-1.30); GLOMERULAR FILTRATION RATE > 60.0 (>49); GLUCOSE, FASTING 88 MG/DL (80-110); MAGNESIUM LEVEL 1.8 MG/DL (1.8-2.4); POTASSIUM SERUM 3.7 MEQ/L (3.5-5.1); SODIUM LEVEL 137 MEQ/L (136-145); TOTAL PROTEIN 6.3 GM/DL (6.4-8.2)
[2016-01-27] MEDS: THIAMINE 100 MG TAB PO SCH (09:21)
[2016-01-27] MEDS: QUEtiapine FUMARATE 200 MG TAB PO SCH ×2 (09:21→20:10)
[2016-01-27] MEDS: MULTIVITAMINS/MINERALS THERAP 1 TAB PO SCH (09:22)
[2016-01-27] MEDS: ASPIRIN 81 MG ENTERIC TAB PO SCH (09:22)
[2016-01-27] MEDS: risperiDONE 0.5 MG TAB PO SCH ×2 (09:22→20:10)
[2016-01-27] MEDS: FUROSEMIDE 40 MG TAB PO SCH ×2 (09:22→20:10)
[2016-01-27] MEDS: DIVALPROEX 500MG *ER* TAB PO SCH (09:22)
[2016-01-27] MEDS: FOLIC ACID 1 MG TAB PO SCH (09:22)
[2016-01-27] MEDS: COSOPT OCUMETER PLUS 10ML (DORZOLAMIDE/TIMOLOL) OU SCH ×2 (09:57→20:10)
--- NOTE | 2016-01-27 11:23 | IPNPDOC ---
Assessment/Plan Date Seen The patient was seen on 01/27/16. Problems Problems: (1) Bipolar affective disorder Status: Acute Problem Text: patient back on medications, symptoms better controlled. However still cannot comprehend his house situation and the restraining order against him taken out by his . as per Psych does not have decisional capacity . Patient stops taking his medications as soon as he is out in the community. will need placement or 24 x 7 supervision at home. Cannot say whether he has underlying dementia or not at this point. once his psych symptoms are better controlled will need to reevaluate for dementia. (2) Hyponatremia Status: Chronic Response to Treatment: Stable Problem Text: continue with fluid restriction and lasix. (3) HTN (hypertension) Status: Chronic Problem Text: Hypotensive today. Will hold medications (4) Seizure Status: Chronic Problem Text: Continue Depakote. (5) History of alcoholism Status: Chronic (6) Glaucoma Status: Acute Problem Text: Cont home medications, eye drops (7) COPD (chronic obstructive pulmonary disease) Status: Acute Problem Text: Continue inhalers Plan / VTE VTE Prophylaxis Ordered?: Yes Subjective CC/HPI The patient is a 65-year-old male admitted with a reason for visit of Encephalopathy. Events since last encounter no complaints, wants to go home or hotel. Objective General Exam: : Alert: Cooperative: No Acute Distress Eye Exam: : Conjunctiva & lids normal: EOMI: PERRLANo: Sclera icteric Neck Exam: : SuppleNo: JVD, thyromegaly Chest Exam: : Clear to auscultation: Normal air movement Heart Exam: : Normal S1: Normal S2: Rate Normal: Regular RhythmNo: Murmurs, Rubs Abdomen Exam: : Normal bowel sounds: SoftNo: Hepatospenomegaly, Tenderness Extremity Exam: : Edema (right leg) VS/I&O Vital Sign - Last 24 Hours 01/26/16 01/26/16 01/26/16 01/27/16 14:00 22:00 22:31 06:00 Temp 97.4 96.3 97.6 Pulse 73 69 65 Resp 18 20 20 B/P 122/63 121/71 Pulse Ox 97 97 96 O2 Delivery Room Air Room Air 01/27/16 08:15 O2 Delivery Room Air I&O- Last 24 Hours up to 6 AM 01/27/16 06:00 Intake Total 1980 ml Output Total 1900 ml Balance 80 ml Labs 24H Laboratory Tests 2 01/27/16 05:20: Blood Urea Nitrogen 11, Creatinine 0.69L, Sodium Level 137, Potassium Level 3.7 , Chloride Level 100, Carbon Dioxide Level 31, Calcium Level 8.4L, Aspartate Amino Transf (AST/SGOT) 13L, Alanine Aminotransferase (ALT/SGPT) 19, Alkaline Phosphatase 52, Total Bilirubin 0.3, Total Protein 6.3L, Albumin 2.8L, Albumin/ Globulin Ratio 0.80L, Anion Gap 6L, White Blood Count 5.1, Red Blood Count 3.57L , Hemoglobin 12.0L, Hematocrit 35.9L, Mean Corpuscular Volume 100.3H, Mean Corpuscular Hemoglobin 33.5H, Mean Corpuscular Hemoglobin Concent 33.4, Red Cell Distribution Width 13.8, Platelet Count 188, Neutrophils (%) (Auto) 39.2, Lymphocytes (%) (Auto) 42.1, Monocytes (%) (Auto) 11.1H, Eosinophils (%) (Auto) 5.1H, Basophils (%) (Auto) 0.6, Neutrophils # (Auto) 2.0, Lymphocytes # (Auto) 2.1, Monocytes # (Auto) 0.6, Eosinophils # (Auto) 0.3, Basophils # (Auto) 0.0, Glomerular Filtration Rate > 60.0, Large Unclassified Cells # 0.1, Large Unclassified Cells % 2.0, Magnesium Level 1.8 CBC/BMP Laboratory Tests 01/27/16 05:20 Calcium Level 8.4 L, Aspartate Amino Transf (AST/SGOT) 13 L, Alanine Aminotransferase (ALT/SGPT) 19, Alkaline Phosphatase 52, Total Bilirubin 0.3, Total Protein 6.3 L, Albumin 2.8 L, Red Blood Count 3.57 L, Mean Corpuscular Volume 100.3 H, Mean Corpuscular Hemoglobin 33.5 H, Mean Corpuscular Hemoglobin Concent 33.4, Red Cell Distribution Width 13.8, Neutrophils (%) (Auto) 39.2, Lymphocytes (%) (Auto) 42.1, Monocytes (%) (Auto) 11.1 H, Eosinophils (%) (Auto ) 5.1 H, Basophils (%) (Auto) 0.6, Neutrophils # (Auto) 2.0, Lymphocytes # (Auto ) 2.1, Monocytes # (Auto) 0.6, Eosinophils # (Auto) 0.3, Basophils # (Auto) 0.0 Allergies Allergies Coded Allergies Codeine (Unverified Adverse Reaction, Mild, RESTLESSNESS, 11/11/15) PRINCE CHAPMAN MD Jan 27, 2016 11:23
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
[2016-01-27 13:30] VITALS: BP 116/57
[2016-01-27 14:00] VITALS: BP_SYST 108; BP_SYST 109; BP_DIAS 55; BP_DIAS 60
[2016-01-27 22:00] VITALS: BP 120/67
[2016-01-28 05:59] LABS: BASO % 0.5 % (0.0-1.0); EOS # 0.3 K/mm3 (0.0-0.50); EOS % 6.6 % (0.0-3.0); LARGE UNSTAINED CELL # 0.1 K/mm3 (0.0-0.4); LARGE UNSTAINED CELL % 2.6 % (0.0-4.0); LYMPH # 2.4 K/mm3 (1.5-4.5); LYMPH % 46.7 % (24.0-44.0); MEAN CORPUSCULAR HEMOGLOBIN 33.5 pg (27.0-33.0); MEAN CORPUSCULAR HGB CONC 33.7 g/dl (32.0-36.5); MEAN CORPUSCULAR VOLUME 99.5 fl (80.0-96.0); MONO # 0.5 K/mm3 (0.0-0.8); MONO % 8.7 % (0.0-5.0); NEUTROPHILS # 1.8 K/mm3 (1.8-7.7); PLATELET COUNT, AUTOMATED 202 k/mm3 (172-450); WHITE BLOOD COUNT 5.2 K/mm3 (5.0-10.0)
[2016-01-28 06:00] VITALS: BP 113/58
[2016-01-28 06:24] LABS: ALBUMIN 2.8 GM/DL (3.2-5.2); ALKALINE PHOSPHATASE 65 U/L (45-117); ALT/SGPT 12 U/L (12-78); ANION GAP 9 MEQ/L (8-16); AST/SGOT 9 U/L (15-37); BILIRUBIN,TOTAL 0.2 MG/DL (0.2-1.0); BLOOD UREA NITROGEN 16 MG/DL (7-18); CALCIUM LEVEL 8.5 MG/DL (8.8-10.2); CARBON DIOXIDE LEVEL 31 MEQ/L (21-32); CHLORIDE LEVEL 101 MEQ/L (98-107); CREATININE FOR GFR 0.68 MG/DL (0.70-1.30); GLOMERULAR FILTRATION RATE > 60.0 (>49); GLUCOSE, FASTING 93 MG/DL (80-110); MAGNESIUM LEVEL 2.3 MG/DL (1.8-2.4); POTASSIUM SERUM 3.4 MEQ/L (3.5-5.1); SODIUM LEVEL 141 MEQ/L (136-145); TOTAL PROTEIN 6.3 GM/DL (6.4-8.2)
[2016-01-28] MEDS: DIVALPROEX 500MG *ER* TAB PO SCH (09:11)
[2016-01-28] MEDS: risperiDONE 0.5 MG TAB PO SCH ×2 (09:12→20:54)
[2016-01-28] MEDS: ASPIRIN 81 MG ENTERIC TAB PO SCH (09:12)
[2016-01-28] MEDS: POTASSIUM CHLORIDE 10 MEQ SR TABLET PO SCH (09:12)
[2016-01-28] MEDS: THIAMINE 100 MG TAB PO SCH (09:12)
[2016-01-28] MEDS: MULTIVITAMINS/MINERALS THERAP 1 TAB PO SCH (09:12)
[2016-01-28] MEDS: FUROSEMIDE 40 MG TAB PO SCH ×2 (09:12→20:54)
[2016-01-28] MEDS: QUEtiapine FUMARATE 200 MG TAB PO SCH ×2 (09:12→20:54)
[2016-01-28] MEDS: FOLIC ACID 1 MG TAB PO SCH (09:12)
[2016-01-28] MEDS: COSOPT OCUMETER PLUS 10ML (DORZOLAMIDE/TIMOLOL) OU SCH ×2 (09:43→20:54)
[2016-01-28 14:00] VITALS: BP 121/64
[2016-01-29 06:00] VITALS: BP 113/57
[2016-01-29] MEDS: MULTIVITAMINS/MINERALS THERAP 1 TAB PO SCH (09:35)
[2016-01-29] MEDS: DIVALPROEX 500MG *ER* TAB PO SCH (09:35)
[2016-01-29] MEDS: FOLIC ACID 1 MG TAB PO SCH (09:36)
[2016-01-29] MEDS: FUROSEMIDE 40 MG TAB PO SCH (09:36)
[2016-01-29] MEDS: SENOKOT S TAB PO SCH ×2 (09:36→20:45)
[2016-01-29] MEDS: THIAMINE 100 MG TAB PO SCH (09:36)
[2016-01-29] MEDS: ASPIRIN 81 MG ENTERIC TAB PO SCH (09:36)
[2016-01-29] MEDS: risperiDONE 0.5 MG TAB PO SCH ×2 (09:36→20:45)
[2016-01-29] MEDS: COSOPT OCUMETER PLUS 10ML (DORZOLAMIDE/TIMOLOL) OU SCH ×2 (09:37→20:45)
[2016-01-29] MEDS: POTASSIUM CHLORIDE 10 MEQ SR TABLET PO SCH (09:37)
[2016-01-29] MEDS: QUEtiapine FUMARATE 200 MG TAB PO SCH ×2 (09:37→20:45)
[2016-01-30 06:00] VITALS: BP 133/74
[2016-01-30] MEDS: ASPIRIN 81 MG ENTERIC TAB PO SCH (09:20)
[2016-01-30] MEDS: FOLIC ACID 1 MG TAB PO SCH (09:20)
[2016-01-30] MEDS: SENOKOT S TAB PO SCH ×2 (09:20→20:50)
[2016-01-30] MEDS: MULTIVITAMINS/MINERALS THERAP 1 TAB PO SCH (09:20)
[2016-01-30] MEDS: risperiDONE 0.5 MG TAB PO SCH ×2 (09:20→20:50)
[2016-01-30] MEDS: FUROSEMIDE 40 MG TAB PO SCH (09:20)
[2016-01-30] MEDS: POTASSIUM CHLORIDE 10 MEQ SR TABLET PO SCH (09:20)
[2016-01-30] MEDS: THIAMINE 100 MG TAB PO SCH (09:20)
[2016-01-30] MEDS: DIVALPROEX 500MG *ER* TAB PO SCH (09:20)
[2016-01-30] MEDS: COSOPT OCUMETER PLUS 10ML (DORZOLAMIDE/TIMOLOL) OU SCH ×2 (09:20→20:50)
[2016-01-30] MEDS: QUEtiapine FUMARATE 200 MG TAB PO SCH ×2 (09:20→20:50)
[2016-01-30 22:00] VITALS: BP 136/60
[2016-01-31 06:00] VITALS: BP 113/55
[2016-01-31] MEDS: DIVALPROEX 500MG *ER* TAB PO SCH (08:43)
[2016-01-31] MEDS: QUEtiapine FUMARATE 200 MG TAB PO SCH ×2 (08:44→20:24)
[2016-01-31] MEDS: FOLIC ACID 1 MG TAB PO SCH (08:44)
[2016-01-31] MEDS: ASPIRIN 81 MG ENTERIC TAB PO SCH (08:44)
[2016-01-31] MEDS: MULTIVITAMINS/MINERALS THERAP 1 TAB PO SCH (08:44)
[2016-01-31] MEDS: THIAMINE 100 MG TAB PO SCH (08:44)
[2016-01-31] MEDS: SENOKOT S TAB PO SCH ×2 (08:45→20:24)
[2016-01-31] MEDS: POTASSIUM CHLORIDE 10 MEQ SR TABLET PO SCH (08:45)
[2016-01-31] MEDS: FUROSEMIDE 40 MG TAB PO SCH (08:45)
[2016-01-31] MEDS: risperiDONE 0.5 MG TAB PO SCH ×2 (08:46→20:24)
[2016-01-31] MEDS: COSOPT OCUMETER PLUS 10ML (DORZOLAMIDE/TIMOLOL) OU SCH ×2 (08:46→20:24)
[2016-01-31 09:00] VITALS: BP 121/58
[2016-01-31 11:14] LABS: MEAN CORPUSCULAR HEMOGLOBIN 34.4 pg (27.0-33.0); MEAN CORPUSCULAR HGB CONC 33.2 g/dl (32.0-36.5); MEAN CORPUSCULAR VOLUME 103.4 fl (80.0-96.0); RED CELL DISTRIBUTION WIDTH 13.9 % (11.5-14.5); WHITE BLOOD COUNT 4.9 K/mm3 (5.0-10.0)
[2016-01-31 11:32] LABS: ANION GAP 6 MEQ/L (8-16); BLOOD UREA NITROGEN 17 MG/DL (7-18); CALCIUM LEVEL 8.8 MG/DL (8.8-10.2); CARBON DIOXIDE LEVEL 28 MEQ/L (21-32); CHLORIDE LEVEL 104 MEQ/L (98-107); CREATININE FOR GFR 0.71 MG/DL (0.70-1.30); GLOMERULAR FILTRATION RATE > 60.0 (>49); GLUCOSE, FASTING 87 MG/DL (80-110); POTASSIUM SERUM 4.3 MEQ/L (3.5-5.1); SODIUM LEVEL 138 MEQ/L (136-145)
[2016-01-31 13:15] VITALS: BP 115/56
[2016-02-01 06:00] VITALS: BP 114/60
[2016-02-01] MEDS: SENOKOT S TAB PO SCH ×2 (10:00→20:03)
[2016-02-01] MEDS: POTASSIUM CHLORIDE 10 MEQ SR TABLET PO SCH (10:01)
[2016-02-01] MEDS: FOLIC ACID 1 MG TAB PO SCH (10:01)
[2016-02-01] MEDS: THIAMINE 100 MG TAB PO SCH (10:01)
[2016-02-01] MEDS: FUROSEMIDE 40 MG TAB PO SCH (10:01)
[2016-02-01] MEDS: ASPIRIN 81 MG ENTERIC TAB PO SCH (10:01)
[2016-02-01] MEDS: MULTIVITAMINS/MINERALS THERAP 1 TAB PO SCH (10:01)
[2016-02-01] MEDS: QUEtiapine FUMARATE 200 MG TAB PO SCH ×2 (10:01→20:03)
[2016-02-01] MEDS: COSOPT OCUMETER PLUS 10ML (DORZOLAMIDE/TIMOLOL) OU SCH ×2 (10:02→20:03)
[2016-02-01] MEDS: risperiDONE 0.5 MG TAB PO SCH ×2 (10:02→20:03)
[2016-02-01] MEDS: DIVALPROEX 500MG *ER* TAB PO SCH (10:02)
[2016-02-01 22:30] VITALS: BP 132/62
[2016-02-02 08:00] VITALS: BP 129/68
[2016-02-02] MEDS: FUROSEMIDE 40 MG TAB PO SCH (08:26)
[2016-02-02] MEDS: POTASSIUM CHLORIDE 10 MEQ SR TABLET PO SCH (08:26)
[2016-02-02] MEDS: ASPIRIN 81 MG ENTERIC TAB PO SCH (08:26)
[2016-02-02] MEDS: COSOPT OCUMETER PLUS 10ML (DORZOLAMIDE/TIMOLOL) OU SCH ×2 (08:27→19:42)
[2016-02-02] MEDS: QUEtiapine FUMARATE 200 MG TAB PO SCH ×2 (08:27→19:42)
[2016-02-02] MEDS: SENOKOT S TAB PO SCH ×2 (08:27→19:42)
[2016-02-02] MEDS: FOLIC ACID 1 MG TAB PO SCH (08:27)
[2016-02-02] MEDS: THIAMINE 100 MG TAB PO SCH (08:27)
[2016-02-02] MEDS: risperiDONE 0.5 MG TAB PO SCH ×2 (08:27→19:42)
[2016-02-02] MEDS: MULTIVITAMINS/MINERALS THERAP 1 TAB PO SCH (08:27)
[2016-02-02] MEDS: DIVALPROEX 500MG *ER* TAB PO SCH (09:37)
--- NOTE | 2016-02-02 10:57 | IPN ---
DATE: 02/02/2016 The patient is seen and examined at the bedside. Chart has been reviewed. Date of service 02/02/2016. He currently denies chest pain, pressure, tightness, shortness of breath, palpitations, lightheadedness. He denies nausea, vomiting, diarrhea, abdominal pain. Appetite is good. Has bowel movement. No weakness, fatigue. No bright red blood per rectum, melena. Temperature 97.6, pulse 58, respiratory rate 18, blood pressure 129/68, 97% on room air. Lungs are clear to auscultation. No wheezing, rales or rhonchi. Heart: S1, S2, sinus rhythm. Abdomen is soft, nontender, nondistended. Positive bowel sounds. Extremities: No cyanosis, clubbing or pitting edema. LABORATORY DATA: White count 4.9, hemoglobin 12, hematocrit 37, platelet count 153, presenting platelet count 144. Sodium 138, potassium 4.3, chloride 104, bicarbonate 28, BUN 17, creatine 0.71, glucose of 87. 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 Electroencephalogram (EEG) three weeks ago showed no activity. The patient has been forgetful and has been drinking. He has been evaluated by both psychiatrist and neurologist. Dr. Baldwin believes that he was suffering from depression and angelica. Psychiatrist, Dr. Mariano felt that the patient is at risk at home and will need placement. CURRENT ISSUES: 1. Altered mental status, agitation and restlessness with history of alcoholic dementia, ischemic vascular dementia, chronic alcoholism and history of seizures. He is currently continued on Depakote, aspirin, folic acid and thiamine. Per Montserrat, who I have spoken with today, 02/02/2016, the patient has had chronic issues and re-evaluation is not necessary at this time. The patient cannot return home as he does need assistance with his treatment and family has been able to provide this for him. Due to the family dynamics, the patient has become a threat to his family and recommendations are the same as previously on 01/26/2016, which is to be placed in a supervised setting where his medication can be dispensed and the patient continues to have no capacity to leaving the medical unit against medical advice and no psychiatric re-evaluation is required according to Dr. Mariano at this time. 2. Hyponatremia, resolved. 3. Hypertension, chronic. 4. History of seizures on Depakote. 5. History of alcoholism, chronic. 6. Glaucoma on home medications of eye drops. 7. Chronic obstructive pulmonary disease (COPD), as needed inhalers. MTDD
[2016-02-03 08:00] VITALS: BP 119/63
[2016-02-03] MEDS: ASPIRIN 81 MG ENTERIC TAB PO SCH (08:34)
[2016-02-03] MEDS: DIVALPROEX 500MG *ER* TAB PO SCH (08:34)
[2016-02-03] MEDS: FOLIC ACID 1 MG TAB PO SCH (08:35)
[2016-02-03] MEDS: SENOKOT S TAB PO SCH ×2 (08:35→19:47)
[2016-02-03] MEDS: POTASSIUM CHLORIDE 10 MEQ SR TABLET PO SCH (08:35)
[2016-02-03] MEDS: MULTIVITAMINS/MINERALS THERAP 1 TAB PO SCH (08:36)
[2016-02-03] MEDS: QUEtiapine FUMARATE 200 MG TAB PO SCH ×2 (08:36→19:48)
[2016-02-03] MEDS: risperiDONE 0.5 MG TAB PO SCH ×2 (08:36→19:48)
[2016-02-03] MEDS: FUROSEMIDE 40 MG TAB PO SCH (08:36)
[2016-02-03] MEDS: THIAMINE 100 MG TAB PO SCH (08:36)
[2016-02-03] MEDS: COSOPT OCUMETER PLUS 10ML (DORZOLAMIDE/TIMOLOL) OU SCH ×2 (08:42→19:48)
[2016-02-03 09:14] LABS: MEAN CORPUSCULAR HEMOGLOBIN 34.1 pg (27.0-33.0); MEAN CORPUSCULAR HGB CONC 33.6 g/dl (32.0-36.5); MEAN CORPUSCULAR VOLUME 101.5 fl (80.0-96.0); RED CELL DISTRIBUTION WIDTH 14.1 % (11.5-14.5); WHITE BLOOD COUNT 5.5 K/mm3 (5.0-10.0)
[2016-02-03 09:37] LABS: ANION GAP 6 MEQ/L (8-16); BLOOD UREA NITROGEN 18 MG/DL (7-18); CALCIUM LEVEL 8.8 MG/DL (8.8-10.2); CARBON DIOXIDE LEVEL 30 MEQ/L (21-32); CHLORIDE LEVEL 104 MEQ/L (98-107); CREATININE FOR GFR 0.75 MG/DL (0.70-1.30); GLOMERULAR FILTRATION RATE > 60.0 (>49); GLUCOSE, FASTING 84 MG/DL (80-110); POTASSIUM SERUM 4.1 MEQ/L (3.5-5.1); SODIUM LEVEL 140 MEQ/L (136-145)
[2016-02-04 08:00] VITALS: BP 122/74
[2016-02-04] MEDS: FUROSEMIDE 40 MG TAB PO SCH (08:10)
[2016-02-04] MEDS: DIVALPROEX 500MG *ER* TAB PO SCH (08:10)
[2016-02-04] MEDS: POTASSIUM CHLORIDE 10 MEQ SR TABLET PO SCH (08:10)
[2016-02-04] MEDS: THIAMINE 100 MG TAB PO SCH (08:10)
[2016-02-04] MEDS: risperiDONE 0.5 MG TAB PO SCH ×2 (08:10→20:15)
[2016-02-04] MEDS: ASPIRIN 81 MG ENTERIC TAB PO SCH (08:10)
[2016-02-04] MEDS: MULTIVITAMINS/MINERALS THERAP 1 TAB PO SCH (08:10)
[2016-02-04] MEDS: QUEtiapine FUMARATE 200 MG TAB PO SCH ×2 (08:10→20:15)
[2016-02-04] MEDS: SENOKOT S TAB PO SCH ×2 (08:11→20:15)
[2016-02-04] MEDS: FOLIC ACID 1 MG TAB PO SCH (08:11)
[2016-02-04] MEDS: COSOPT OCUMETER PLUS 10ML (DORZOLAMIDE/TIMOLOL) OU SCH ×2 (08:11→20:15)
[2016-02-05 07:00] VITALS: BP 134/70
[2016-02-05] MEDS: SENOKOT S TAB PO SCH ×2 (08:15→20:09)
[2016-02-05] MEDS: ASPIRIN 81 MG ENTERIC TAB PO SCH (08:15)
[2016-02-05] MEDS: THIAMINE 100 MG TAB PO SCH (08:15)
[2016-02-05] MEDS: DIVALPROEX 500MG *ER* TAB PO SCH (08:15)
[2016-02-05] MEDS: MULTIVITAMINS/MINERALS THERAP 1 TAB PO SCH (08:15)
[2016-02-05] MEDS: risperiDONE 0.5 MG TAB PO SCH ×2 (08:15→20:09)
[2016-02-05] MEDS: FOLIC ACID 1 MG TAB PO SCH (08:15)
[2016-02-05] MEDS: QUEtiapine FUMARATE 200 MG TAB PO SCH ×2 (08:15→20:09)
[2016-02-05] MEDS: POTASSIUM CHLORIDE 10 MEQ SR TABLET PO SCH (08:16)
[2016-02-05] MEDS: COSOPT OCUMETER PLUS 10ML (DORZOLAMIDE/TIMOLOL) OU SCH ×2 (08:16→20:09)
[2016-02-05] MEDS: FUROSEMIDE 40 MG TAB PO SCH (08:16)
[2016-02-06 07:00] VITALS: BP 117/64
[2016-02-06] MEDS: SENOKOT S TAB PO SCH ×2 (07:59→19:33)
[2016-02-06] MEDS: ASPIRIN 81 MG ENTERIC TAB PO SCH (07:59)
[2016-02-06] MEDS: DIVALPROEX 500MG *ER* TAB PO SCH (07:59)
[2016-02-06] MEDS: MULTIVITAMINS/MINERALS THERAP 1 TAB PO SCH (07:59)
[2016-02-06] MEDS: FUROSEMIDE 40 MG TAB PO SCH (07:59)
[2016-02-06] MEDS: QUEtiapine FUMARATE 200 MG TAB PO SCH ×2 (07:59→19:33)
[2016-02-06] MEDS: THIAMINE 100 MG TAB PO SCH (07:59)
[2016-02-06] MEDS: FOLIC ACID 1 MG TAB PO SCH (07:59)
[2016-02-06] MEDS: risperiDONE 0.5 MG TAB PO SCH ×2 (07:59→19:33)
[2016-02-06] MEDS: COSOPT OCUMETER PLUS 10ML (DORZOLAMIDE/TIMOLOL) OU SCH ×2 (08:00→19:33)
[2016-02-06] MEDS: POTASSIUM CHLORIDE 10 MEQ SR TABLET PO SCH (08:00)
[2016-02-07 08:00] VITALS: BP 106/61
[2016-02-07] MEDS: FOLIC ACID 1 MG TAB PO SCH (10:10)
[2016-02-07] MEDS: MULTIVITAMINS/MINERALS THERAP 1 TAB PO SCH (10:10)
[2016-02-07] MEDS: SENOKOT S TAB PO SCH ×2 (10:10→19:49)
[2016-02-07] MEDS: FUROSEMIDE 40 MG TAB PO SCH (10:10)
[2016-02-07] MEDS: COSOPT OCUMETER PLUS 10ML (DORZOLAMIDE/TIMOLOL) OU SCH ×2 (10:11→19:49)
[2016-02-07] MEDS: DIVALPROEX 500MG *ER* TAB PO SCH (10:11)
[2016-02-07] MEDS: QUEtiapine FUMARATE 200 MG TAB PO SCH ×2 (10:11→19:49)
[2016-02-07] MEDS: THIAMINE 100 MG TAB PO SCH (10:11)
[2016-02-07] MEDS: POTASSIUM CHLORIDE 10 MEQ SR TABLET PO SCH (10:11)
[2016-02-07] MEDS: risperiDONE 0.5 MG TAB PO SCH ×2 (10:11→19:49)
[2016-02-07] MEDS: ASPIRIN 81 MG ENTERIC TAB PO SCH (10:11)
[2016-02-07 10:45] LABS: MEAN CORPUSCULAR HEMOGLOBIN 33.3 pg (27.0-33.0); MEAN CORPUSCULAR HGB CONC 32.7 g/dl (32.0-36.5); MEAN CORPUSCULAR VOLUME 101.7 fl (80.0-96.0); RED CELL DISTRIBUTION WIDTH 14.3 % (11.5-14.5); WHITE BLOOD COUNT 5.2 K/mm3 (5.0-10.0)
[2016-02-07 11:08] LABS: ANION GAP 4 MEQ/L (8-16); BLOOD UREA NITROGEN 18 MG/DL (7-18); CALCIUM LEVEL 8.6 MG/DL (8.8-10.2); CARBON DIOXIDE LEVEL 31 MEQ/L (21-32); CHLORIDE LEVEL 103 MEQ/L (98-107); CREATININE FOR GFR 0.85 MG/DL (0.70-1.30); GLOMERULAR FILTRATION RATE > 60.0 (>49); GLUCOSE, FASTING 88 MG/DL (80-110); POTASSIUM SERUM 4.3 MEQ/L (3.5-5.1); SODIUM LEVEL 138 MEQ/L (136-145)
[2016-02-08 08:00] VITALS: BP 119/69
[2016-02-08] MEDS: FUROSEMIDE 40 MG TAB PO SCH (08:26)
[2016-02-08] MEDS: DIVALPROEX 500MG *ER* TAB PO SCH (08:26)
[2016-02-08] MEDS: POTASSIUM CHLORIDE 10 MEQ SR TABLET PO SCH (08:26)
[2016-02-08] MEDS: FOLIC ACID 1 MG TAB PO SCH (08:26)
[2016-02-08] MEDS: THIAMINE 100 MG TAB PO SCH (08:26)
[2016-02-08] MEDS: SENOKOT S TAB PO SCH ×2 (08:27→19:40)
[2016-02-08] MEDS: risperiDONE 0.5 MG TAB PO SCH ×2 (08:27→19:39)
[2016-02-08] MEDS: QUEtiapine FUMARATE 200 MG TAB PO SCH ×2 (08:27→19:40)
[2016-02-08] MEDS: MULTIVITAMINS/MINERALS THERAP 1 TAB PO SCH (08:27)
[2016-02-08] MEDS: ASPIRIN 81 MG ENTERIC TAB PO SCH (08:27)
[2016-02-08] MEDS: COSOPT OCUMETER PLUS 10ML (DORZOLAMIDE/TIMOLOL) OU SCH ×2 (08:27→19:40)
[2016-02-09 07:30] VITALS: BP 121/60
[2016-02-09] MEDS: risperiDONE 0.5 MG TAB PO SCH ×2 (08:20→19:52)
[2016-02-09] MEDS: DIVALPROEX 500MG *ER* TAB PO SCH (08:20)
[2016-02-09] MEDS: THIAMINE 100 MG TAB PO SCH (08:20)
[2016-02-09] MEDS: FOLIC ACID 1 MG TAB PO SCH (08:20)
[2016-02-09] MEDS: SENOKOT S TAB PO SCH ×2 (08:20→19:52)
[2016-02-09] MEDS: ASPIRIN 81 MG ENTERIC TAB PO SCH (08:20)
[2016-02-09] MEDS: QUEtiapine FUMARATE 200 MG TAB PO SCH ×2 (08:20→19:52)
[2016-02-09] MEDS: MULTIVITAMINS/MINERALS THERAP 1 TAB PO SCH (08:20)
[2016-02-09] MEDS: FUROSEMIDE 40 MG TAB PO SCH (08:21)
[2016-02-09] MEDS: POTASSIUM CHLORIDE 10 MEQ SR TABLET PO SCH (08:21)
[2016-02-09] MEDS: COSOPT OCUMETER PLUS 10ML (DORZOLAMIDE/TIMOLOL) OU SCH ×2 (08:21→19:52)
--- NOTE | 2016-02-09 17:27 | IPN ---
DATE OF SERVICE: 02/09/2016 The patient is a 65-year-old male with a past medical history of hypertension, glaucoma, chronic obstructive pulmonary disease (COPD), chronic alcoholism, macrocytic anemia, bipolar disorder, alcohol-related dementia, hernia repair, history of seizure disorder. The patient presented to the emergency room with a three or four month history of memory issues. He was diagnosed with alcoholic dementia. The patient received an electroencephalogram (EEG) three weeks ago, which showed no seizure activity. Patient has been noted to be forgetful. The patient was admitted for altered mental status. Currently, patient has been seen and examined at the bedside . He is awake, alert and oriented times three. No new problems reported. OBJECTIVE: VITAL SIGNS: Temperature 97.7 degrees Fahrenheit, pulse 54, respiratory rate of 16, blood pressure 121/60, pulse oximetry 98% on room air. GENERAL EXAMINATION: The patient is sitting up in bed. He is in no acute distress. He is awake, alert and oriented times three. Speaking in full sentences. HEAD AND NECK EXAMINATION: He is normocephalic, atraumatic. Pupils equal, round, and reactive to light. No lymphadenopathy. All mucosa appear moist. LUNG EXAMINATION: Fair air entry bilaterally. Clear to auscultation bilaterally. No wheezes, rales or rhonchi. HEART: Regular rate and rhythm. Normal S1, S2. No murmurs, rubs or gallops. ABDOMEN: Soft, nontender, nondistended. Positive bowel sounds in all four quadrants. No guarding, rigidity or rebound. EXTREMITIES: No lower extremity edema. Positive peripheral pulses in all four extremities. No calf tenderness could be noted. LABORATORIES: Currently, the patient has no new laboratory work. IMAGING: Currently, the patient has no new imaging. ASSESSMENT AND PLAN: 1. The patient is status post acute altered mental status, which is likely secondary to history of underlying bipolar disorder, history of alcoholic dementia, including ischemic vascular dementia. The patient has a longstanding history of alcoholism, history of seizures in the past. Currently, the patient is alert and oriented times three. He is being well controlled with haloperidol as needed, Risperdal by mouth and quetiapine by mouth. Currently, patient is being evaluated for outpatient disposition to a nursing center. He does not have the capacity to make decisions. 2. History of seizure disorder. Currently, he is on Depakote. 3. History of alcoholism, which is chronic. Currently, patient is on multivitamin, thiamine and folate, which will be continued. 4. Hyponatremia. Has been resolved. 5. Hypertension, which is chronic. Blood pressure remains stable. Will continue with antihypertensive medications with holding parameters. 6. Glaucoma. Will continue with eye drops. 7. Chronic obstructive pulmonary disease (COPD). Will continue with breathing treatments, DuoNeb as needed. MTDD
[2016-02-10 07:14] LABS: MEAN CORPUSCULAR HEMOGLOBIN 33.3 pg (27.0-33.0); MEAN CORPUSCULAR HGB CONC 33.2 g/dl (32.0-36.5); MEAN CORPUSCULAR VOLUME 100.3 fl (80.0-96.0); RED CELL DISTRIBUTION WIDTH 14.5 % (11.5-14.5); WHITE BLOOD COUNT 5.3 K/mm3 (5.0-10.0)
[2016-02-10 07:38] LABS: ANION GAP 6 MEQ/L (8-16); BLOOD UREA NITROGEN 19 MG/DL (7-18); CALCIUM LEVEL 8.4 MG/DL (8.8-10.2); CARBON DIOXIDE LEVEL 28 MEQ/L (21-32); CHLORIDE LEVEL 105 MEQ/L (98-107); CREATININE FOR GFR 0.63 MG/DL (0.70-1.30); GLOMERULAR FILTRATION RATE > 60.0 (>49); GLUCOSE, FASTING 80 MG/DL (80-110); POTASSIUM SERUM 4.4 MEQ/L (3.5-5.1); SODIUM LEVEL 139 MEQ/L (136-145)
[2016-02-10 08:00] VITALS: BP 122/70
[2016-02-10] MEDS: SENOKOT S TAB PO SCH ×2 (08:16→20:02)
[2016-02-10] MEDS: THIAMINE 100 MG TAB PO SCH (08:16)
[2016-02-10] MEDS: DIVALPROEX 500MG *ER* TAB PO SCH (08:16)
[2016-02-10] MEDS: MULTIVITAMINS/MINERALS THERAP 1 TAB PO SCH (08:16)
[2016-02-10] MEDS: FUROSEMIDE 40 MG TAB PO SCH (08:17)
[2016-02-10] MEDS: risperiDONE 0.5 MG TAB PO SCH ×2 (08:17→20:02)
[2016-02-10] MEDS: ASPIRIN 81 MG ENTERIC TAB PO SCH (08:17)
[2016-02-10] MEDS: QUEtiapine FUMARATE 200 MG TAB PO SCH ×2 (08:17→20:02)
[2016-02-10] MEDS: COSOPT OCUMETER PLUS 10ML (DORZOLAMIDE/TIMOLOL) OU SCH ×2 (08:17→20:02)
[2016-02-10] MEDS: POTASSIUM CHLORIDE 10 MEQ SR TABLET PO SCH (08:17)
[2016-02-10] MEDS: FOLIC ACID 1 MG TAB PO SCH (08:17)
[2016-02-11 08:00] VITALS: BP 120/70
[2016-02-11] MEDS: ASPIRIN 81 MG ENTERIC TAB PO SCH (09:22)
[2016-02-11] MEDS: THIAMINE 100 MG TAB PO SCH (09:22)
[2016-02-11] MEDS: QUEtiapine FUMARATE 200 MG TAB PO SCH ×2 (09:22→20:18)
[2016-02-11] MEDS: POTASSIUM CHLORIDE 10 MEQ SR TABLET PO SCH (09:22)
[2016-02-11] MEDS: FOLIC ACID 1 MG TAB PO SCH (09:23)
[2016-02-11] MEDS: risperiDONE 0.5 MG TAB PO SCH ×2 (09:23→20:18)
[2016-02-11] MEDS: FUROSEMIDE 40 MG TAB PO SCH (09:23)
[2016-02-11] MEDS: DIVALPROEX 500MG *ER* TAB PO SCH (09:23)
[2016-02-11] MEDS: MULTIVITAMINS/MINERALS THERAP 1 TAB PO SCH (09:23)
[2016-02-11] MEDS: SENOKOT S TAB PO SCH ×2 (09:23→20:18)
[2016-02-11] MEDS: COSOPT OCUMETER PLUS 10ML (DORZOLAMIDE/TIMOLOL) OU SCH ×2 (09:24→20:18)
[2016-02-12 07:00] VITALS: BP 125/64
[2016-02-12] MEDS: FOLIC ACID 1 MG TAB PO SCH (09:17)
[2016-02-12] MEDS: FUROSEMIDE 40 MG TAB PO SCH (09:17)
[2016-02-12] MEDS: SENOKOT S TAB PO SCH ×2 (09:17→19:59)
[2016-02-12] MEDS: POTASSIUM CHLORIDE 10 MEQ SR TABLET PO SCH (09:17)
[2016-02-12] MEDS: risperiDONE 0.5 MG TAB PO SCH ×2 (09:17→20:00)
[2016-02-12] MEDS: QUEtiapine FUMARATE 200 MG TAB PO SCH ×2 (09:17→19:59)
[2016-02-12] MEDS: THIAMINE 100 MG TAB PO SCH (09:17)
[2016-02-12] MEDS: MULTIVITAMINS/MINERALS THERAP 1 TAB PO SCH (09:17)
[2016-02-12] MEDS: DIVALPROEX 500MG *ER* TAB PO SCH (09:17)
[2016-02-12] MEDS: ASPIRIN 81 MG ENTERIC TAB PO SCH (09:17)
[2016-02-12] MEDS: COSOPT OCUMETER PLUS 10ML (DORZOLAMIDE/TIMOLOL) OU SCH ×2 (09:18→20:00)
[2016-02-13 08:00] VITALS: BP 110/65
[2016-02-13] MEDS: MULTIVITAMINS/MINERALS THERAP 1 TAB PO SCH (08:44)
[2016-02-13] MEDS: QUEtiapine FUMARATE 200 MG TAB PO SCH ×2 (08:44→19:49)
[2016-02-13] MEDS: THIAMINE 100 MG TAB PO SCH (08:44)
[2016-02-13] MEDS: COSOPT OCUMETER PLUS 10ML (DORZOLAMIDE/TIMOLOL) OU SCH ×2 (08:44→19:49)
[2016-02-13] MEDS: FOLIC ACID 1 MG TAB PO SCH (08:44)
[2016-02-13] MEDS: ASPIRIN 81 MG ENTERIC TAB PO SCH (08:44)
[2016-02-13] MEDS: risperiDONE 0.5 MG TAB PO SCH ×2 (08:44→19:48)
[2016-02-13] MEDS: FUROSEMIDE 40 MG TAB PO SCH (08:44)
[2016-02-13] MEDS: SENOKOT S TAB PO SCH ×2 (08:45→19:48)
[2016-02-13] MEDS: POTASSIUM CHLORIDE 10 MEQ SR TABLET PO SCH (08:45)
[2016-02-13] MEDS: DIVALPROEX 500MG *ER* TAB PO SCH (08:45)
[2016-02-14 07:06] LABS: MEAN CORPUSCULAR HEMOGLOBIN 33.4 pg (27.0-33.0); MEAN CORPUSCULAR HGB CONC 33.2 g/dl (32.0-36.5); MEAN CORPUSCULAR VOLUME 100.6 fl (80.0-96.0); RED CELL DISTRIBUTION WIDTH 14.6 % (11.5-14.5); WHITE BLOOD COUNT 4.7 K/mm3 (5.0-10.0)
[2016-02-14 07:21] LABS: ANION GAP 7 MEQ/L (8-16); BLOOD UREA NITROGEN 17 MG/DL (7-18); CALCIUM LEVEL 8.7 MG/DL (8.8-10.2); CARBON DIOXIDE LEVEL 30 MEQ/L (21-32); CHLORIDE LEVEL 103 MEQ/L (98-107); CREATININE FOR GFR 0.69 MG/DL (0.70-1.30); GLOMERULAR FILTRATION RATE > 60.0 (>49); GLUCOSE, FASTING 80 MG/DL (80-110); POTASSIUM SERUM 4.3 MEQ/L (3.5-5.1); SODIUM LEVEL 140 MEQ/L (136-145)
[2016-02-14 07:48] VITALS: BP 120/75
[2016-02-14] MEDS: DIVALPROEX 500MG *ER* TAB PO SCH (08:08)
[2016-02-14] MEDS: risperiDONE 0.5 MG TAB PO SCH ×2 (08:09→19:49)
[2016-02-14] MEDS: FOLIC ACID 1 MG TAB PO SCH (08:09)
[2016-02-14] MEDS: ASPIRIN 81 MG ENTERIC TAB PO SCH (08:09)
[2016-02-14] MEDS: FUROSEMIDE 40 MG TAB PO SCH (08:09)
[2016-02-14] MEDS: THIAMINE 100 MG TAB PO SCH (08:09)
[2016-02-14] MEDS: QUEtiapine FUMARATE 200 MG TAB PO SCH ×2 (08:09→19:49)
[2016-02-14] MEDS: SENOKOT S TAB PO SCH ×2 (08:09→19:49)
[2016-02-14] MEDS: POTASSIUM CHLORIDE 10 MEQ SR TABLET PO SCH (08:09)
[2016-02-14] MEDS: MULTIVITAMINS/MINERALS THERAP 1 TAB PO SCH (08:09)
[2016-02-14] MEDS: COSOPT OCUMETER PLUS 10ML (DORZOLAMIDE/TIMOLOL) OU SCH ×2 (08:09→19:50)
[2016-02-15 07:00] VITALS: BP 118/64
[2016-02-15] MEDS: FUROSEMIDE 40 MG TAB PO SCH (08:35)
[2016-02-15] MEDS: ASPIRIN 81 MG ENTERIC TAB PO SCH (08:35)
[2016-02-15] MEDS: THIAMINE 100 MG TAB PO SCH (08:35)
[2016-02-15] MEDS: DIVALPROEX 500MG *ER* TAB PO SCH (08:35)
[2016-02-15] MEDS: risperiDONE 0.5 MG TAB PO SCH ×2 (08:35→19:36)
[2016-02-15] MEDS: SENOKOT S TAB PO SCH ×2 (08:35→19:36)
[2016-02-15] MEDS: FOLIC ACID 1 MG TAB PO SCH (08:35)
[2016-02-15] MEDS: QUEtiapine FUMARATE 200 MG TAB PO SCH ×2 (08:35→19:36)
[2016-02-15] MEDS: POTASSIUM CHLORIDE 10 MEQ SR TABLET PO SCH (08:35)
[2016-02-15] MEDS: MULTIVITAMINS/MINERALS THERAP 1 TAB PO SCH (08:35)
[2016-02-15] MEDS: COSOPT OCUMETER PLUS 10ML (DORZOLAMIDE/TIMOLOL) OU SCH ×2 (08:36→19:36)
[2016-02-16 08:00] VITALS: BP 123/72
[2016-02-16] MEDS: SENOKOT S TAB PO SCH ×2 (08:20→19:47)
[2016-02-16] MEDS: MULTIVITAMINS/MINERALS THERAP 1 TAB PO SCH (08:20)
[2016-02-16] MEDS: QUEtiapine FUMARATE 200 MG TAB PO SCH ×2 (08:20→19:47)
[2016-02-16] MEDS: FUROSEMIDE 40 MG TAB PO SCH (08:21)
[2016-02-16] MEDS: risperiDONE 0.5 MG TAB PO SCH ×2 (08:21→19:47)
[2016-02-16] MEDS: THIAMINE 100 MG TAB PO SCH (08:21)
[2016-02-16] MEDS: ASPIRIN 81 MG ENTERIC TAB PO SCH (08:21)
[2016-02-16] MEDS: FOLIC ACID 1 MG TAB PO SCH (08:21)
[2016-02-16] MEDS: COSOPT OCUMETER PLUS 10ML (DORZOLAMIDE/TIMOLOL) OU SCH ×2 (08:21→19:47)
[2016-02-16] MEDS: POTASSIUM CHLORIDE 10 MEQ SR TABLET PO SCH (08:21)
[2016-02-16] MEDS: DIVALPROEX 500MG *ER* TAB PO SCH (08:21)
--- NOTE | 2016-02-16 15:52 | IPNPDOC ---
Assessment/Plan Date Seen The patient was seen on 02/16/16. Plan / VTE VTE Prophylaxis Ordered?: Yes Plan Plan Text 1. Psychiatric Hx of Bipolar Disorder, History of Alcoholic Dementia I had an extensive conversation today with the patient in an effort to deduce his ability to make capable decisions. Using the Assessment of Capacity for Everyday Decision making tool, the patient scored poorly in his ability to display Understanding, Expressing a choice, Appreciation, and Reasoning of his Psychiatric condition(s). The patient lacks insight about his psychiatric diagnoses, and notes that he is not sure which medications he should be taking. When prompted, he states that he, "has never heard of any of the medications that were mentioned." A lack of insight and understanding of his psychiatric conditions leaves the patient increasingly susceptible to similar episodes of angelica and instability that required him to be in the inpatient psych unit initially. It appears, that in the past, the patient has been stabilized before on psych medications, but once he was discharged from direct supervision, he once again became non-compliant and at times combative/threatening towards people, including his . 2. History of seizure disorder. Currently, he is on Depakote. 3. History of alcoholism, no acute issues at this time 4. Hypertension, which is chronic. Blood pressure remains stable. 5. Glaucoma. Will continue with eye drops. 7. Chronic obstructive pulmonary disease (COPD). Will continue with breathing treatments, DuoNeb as needed. Subjective CC/HPI The patient is a 65-year-old male admitted with a reason for visit of Encephalopathy. General: Denies: Chills, Night Sweats Constitutional: Denies: Chills, Fever Eyes: Denies: Pain, Vision change ENT: Denies: Ear Pain, Head Aches Skin: Denies: Lesions, Rash Pulmonary: Denies: Cough, Dyspnea Cardiovascular: Denies: Chest Pain, Palpitations Gastrointestinal: Denies: Nausea, Vomiting Genitourinary: Denies: Dysuria, Frequency Musculoskeletal: Denies: Back Pain, Neck Pain Objective General Exam: : Alert: Cooperative: No Acute Distress Eye Exam: : EOMINo: Sclera icteric Neck Exam: : SuppleNo: JVD, thyromegaly Chest Exam: : Clear to auscultation: Normal air movement Heart Exam: : Normal S1: Normal S2: Rate Normal: Regular RhythmNo: Murmurs, Rubs Abdomen Exam: : Normal bowel sounds: SoftNo: Hepatospenomegaly, Tenderness Vital Signs I&O Vital Sign - Last 24 Hours 02/16/16 08:00 Temp 97.1 Pulse 65 Resp 14 B/P 123/72 Pulse Ox 97 O2 Delivery Room Air I&O- Last 24 Hours up to 6 AM 02/16/16 06:00 Intake Total 1560 ml Balance 1560 ml Medications Medications Current Medications Albuterol/ Ipratropium 3 ml RQID PRN INH SOB/WHEEZING Last administered on 01/25at 19:11; Admin Dose 3 ML; Start 01/25/16 at 12:00; Stop 02/24/16 at 11:59 Aspirin 81 mg DAILY PO Last administered on 02/16/16 08:21; Admin Dose 81 MG; Start 01/24/16 at 09:00; Stop 02/23/16 at 08:59 Divalproex Sodium 2,000 mg DAILY PO Last administered on 02/16/16 08:21; Admin Dose 2,000 MG; Start 01/24/16 at 09:00; Stop 02/23/16 at 08:59 Dorzolamide/ Timolol 1 drop BID OU Last administered on 02/16/16 08:21; Admin Dose 1 DROP; Start 01/24/16 at 09:00; Stop 02/23/16 at 08:59 Folic Acid 1 mg DAILY PO Last administered on 02/16/16at 08:21; Admin Dose 1 MG ; Start 01/24/16 at 09:00; Stop 02/23/16 at 08:59 Furosemide 40 mg DAILY PO Last administered on 02/16/16at 08:21; Admin Dose 40 MG; Start 01/29/16 at 09:00; Stop 02/28/16 at 08:59 Haloperidol 0.5 mg Q4HP PRN IM AGITATION Last administered on 01/24/16at 19:54; Admin Dose 0.5 MG; Start 01/24/16 at 19:45; Stop 02/23/16 at 19:44 Multivitamins 1 tab DAILY PO Last administered on 02/16/16at 08:20; Admin Dose 1 TAB; Start 01/24/16 at 09:00; Stop 02/23/16 at 08:59 Ondansetron HCl 4 mg Q6HP PRN PO NAUSEA OR VOMITING; Start 01/24/16 at 06:00; Stop 02/23/16 at 05:59 Potassium Chloride 20 meq DAILY PO Last administered on 02/16/16at 08:21; Admin Dose 20 MEQ; Start 01/28/16 at 09:00; Stop 02/27/16 at 08:59 Quetiapine Fumarate 200 mg BID PO Last administered on 02/16/16at 08:20; Admin Dose 200 MG; Start 01/24/16 at 09:00; Stop 02/23/16 at 08:59 Risperidone 0.5 mg BID PO Last administered on 02/16/16at 08:21; Admin Dose 0.5 MG; Start 01/24/16 at 21:00; Stop 02/23/16 at 20:59 Senna/Docusate Sodium 1 tab BID PO Last administered on 02/16/16at 08:20; Admin Dose 1 TAB; Start 01/29/16 at 09:00; Stop 02/28/16 at 08:59 Thiamine HCl 100 mg DAILY PO Last administered on 02/16/16at 08:21; Admin Dose 100 MG; Start 01/24/16 at 09:00; Stop 02/23/16 at 08:59 Allergies Coded Allergies: Codeine (Unverified Adverse Reaction, Mild, RESTLESSNESS, 11/11/15) TYSON HOANG MD Feb 16, 2016 15:51
[2016-02-17 07:03] LABS: MEAN CORPUSCULAR HEMOGLOBIN 32.5 pg (27.0-33.0); MEAN CORPUSCULAR HGB CONC 32.4 g/dl (32.0-36.5); MEAN CORPUSCULAR VOLUME 100.3 fl (80.0-96.0); RED CELL DISTRIBUTION WIDTH 14.5 % (11.5-14.5)
[2016-02-17 07:23] LABS: ANION GAP 4 MEQ/L (8-16); BLOOD UREA NITROGEN 18 MG/DL (7-18); CALCIUM LEVEL 8.9 MG/DL (8.8-10.2); CARBON DIOXIDE LEVEL 32 MEQ/L (21-32); CHLORIDE LEVEL 102 MEQ/L (98-107); CREATININE FOR GFR 0.73 MG/DL (0.70-1.30); GLOMERULAR FILTRATION RATE > 60.0 (>49); GLUCOSE, FASTING 87 MG/DL (80-110); POTASSIUM SERUM 4.2 MEQ/L (3.5-5.1); SODIUM LEVEL 138 MEQ/L (136-145)
[2016-02-17 08:00] VITALS: BP 142/76
[2016-02-17] MEDS: DIVALPROEX 500MG *ER* TAB PO SCH (10:01)
[2016-02-17] MEDS: POTASSIUM CHLORIDE 10 MEQ SR TABLET PO SCH (10:01)
[2016-02-17] MEDS: QUEtiapine FUMARATE 200 MG TAB PO SCH ×2 (10:02→19:35)
[2016-02-17] MEDS: ASPIRIN 81 MG ENTERIC TAB PO SCH (10:02)
[2016-02-17] MEDS: FUROSEMIDE 40 MG TAB PO SCH (10:02)
[2016-02-17] MEDS: SENOKOT S TAB PO SCH ×2 (10:02→19:35)
[2016-02-17] MEDS: FOLIC ACID 1 MG TAB PO SCH (10:02)
[2016-02-17] MEDS: COSOPT OCUMETER PLUS 10ML (DORZOLAMIDE/TIMOLOL) OU SCH ×2 (10:02→19:35)
[2016-02-17] MEDS: THIAMINE 100 MG TAB PO SCH (10:02)
[2016-02-17] MEDS: risperiDONE 0.5 MG TAB PO SCH ×2 (10:02→19:35)
[2016-02-17] MEDS: MULTIVITAMINS/MINERALS THERAP 1 TAB PO SCH (10:02)
[2016-02-18 08:00] VITALS: BP 115/68
[2016-02-18] MEDS: POTASSIUM CHLORIDE 10 MEQ SR TABLET PO SCH (08:51)
[2016-02-18] MEDS: DIVALPROEX 500MG *ER* TAB PO SCH (08:51)
[2016-02-18] MEDS: ASPIRIN 81 MG ENTERIC TAB PO SCH (08:51)
[2016-02-18] MEDS: THIAMINE 100 MG TAB PO SCH (08:52)
[2016-02-18] MEDS: MULTIVITAMINS/MINERALS THERAP 1 TAB PO SCH (08:52)
[2016-02-18] MEDS: FOLIC ACID 1 MG TAB PO SCH (08:52)
[2016-02-18] MEDS: QUEtiapine FUMARATE 200 MG TAB PO SCH ×2 (08:52→19:56)
[2016-02-18] MEDS: SENOKOT S TAB PO SCH ×2 (08:52→19:56)
[2016-02-18] MEDS: COSOPT OCUMETER PLUS 10ML (DORZOLAMIDE/TIMOLOL) OU SCH ×2 (08:52→19:56)
[2016-02-18] MEDS: FUROSEMIDE 40 MG TAB PO SCH (08:52)
[2016-02-18] MEDS: risperiDONE 0.5 MG TAB PO SCH ×2 (08:52→19:56)
[2016-02-19 07:00] VITALS: BP 109/59
[2016-02-19] MEDS: MULTIVITAMINS/MINERALS THERAP 1 TAB PO SCH (08:18)
[2016-02-19] MEDS: ASPIRIN 81 MG ENTERIC TAB PO SCH (08:18)
[2016-02-19] MEDS: FOLIC ACID 1 MG TAB PO SCH (08:18)
[2016-02-19] MEDS: DIVALPROEX 500MG *ER* TAB PO SCH (08:18)
[2016-02-19] MEDS: risperiDONE 0.5 MG TAB PO SCH ×2 (08:18→19:57)
[2016-02-19] MEDS: FUROSEMIDE 40 MG TAB PO SCH (08:18)
[2016-02-19] MEDS: SENOKOT S TAB PO SCH ×2 (08:18→19:56)
[2016-02-19] MEDS: THIAMINE 100 MG TAB PO SCH (08:18)
[2016-02-19] MEDS: QUEtiapine FUMARATE 200 MG TAB PO SCH ×2 (08:18→19:56)
[2016-02-19] MEDS: POTASSIUM CHLORIDE 10 MEQ SR TABLET PO SCH (08:18)
[2016-02-19] MEDS: COSOPT OCUMETER PLUS 10ML (DORZOLAMIDE/TIMOLOL) OU SCH ×2 (08:19→19:57)
[2016-02-20 07:00] VITALS: BP 105/66
[2016-02-20] MEDS: POTASSIUM CHLORIDE 10 MEQ SR TABLET PO SCH (08:26)
[2016-02-20] MEDS: ASPIRIN 81 MG ENTERIC TAB PO SCH (08:26)
[2016-02-20] MEDS: FUROSEMIDE 40 MG TAB PO SCH (08:26)
[2016-02-20] MEDS: MULTIVITAMINS/MINERALS THERAP 1 TAB PO SCH (08:26)
[2016-02-20] MEDS: QUEtiapine FUMARATE 200 MG TAB PO SCH ×2 (08:26→19:33)
[2016-02-20] MEDS: FOLIC ACID 1 MG TAB PO SCH (08:27)
[2016-02-20] MEDS: risperiDONE 0.5 MG TAB PO SCH ×2 (08:27→19:32)
[2016-02-20] MEDS: SENOKOT S TAB PO SCH ×2 (08:27→19:32)
[2016-02-20] MEDS: THIAMINE 100 MG TAB PO SCH (08:27)
[2016-02-20] MEDS: DIVALPROEX 500MG *ER* TAB PO SCH (08:28)
[2016-02-20] MEDS: COSOPT OCUMETER PLUS 10ML (DORZOLAMIDE/TIMOLOL) OU SCH ×2 (08:28→19:33)
[2016-02-21 06:35] LABS: MEAN CORPUSCULAR HEMOGLOBIN 32.9 pg (27.0-33.0); MEAN CORPUSCULAR VOLUME 99.7 fl (80.0-96.0); RED CELL DISTRIBUTION WIDTH 14.6 % (11.5-14.5); WHITE BLOOD COUNT 5.2 K/mm3 (5.0-10.0)
[2016-02-21 06:58] LABS: ANION GAP 9 MEQ/L (8-16); BLOOD UREA NITROGEN 21 MG/DL (7-18); CALCIUM LEVEL 8.6 MG/DL (8.8-10.2); CARBON DIOXIDE LEVEL 27 MEQ/L (21-32); CHLORIDE LEVEL 104 MEQ/L (98-107); GLOMERULAR FILTRATION RATE > 60.0 (>49); GLUCOSE, FASTING 85 MG/DL (80-110); POTASSIUM SERUM 4.3 MEQ/L (3.5-5.1); SODIUM LEVEL 140 MEQ/L (136-145)
[2016-02-21] MEDS: FUROSEMIDE 40 MG TAB PO SCH (07:56)
[2016-02-21] MEDS: ASPIRIN 81 MG ENTERIC TAB PO SCH (07:56)
[2016-02-21] MEDS: POTASSIUM CHLORIDE 10 MEQ SR TABLET PO SCH (07:56)
[2016-02-21] MEDS: DIVALPROEX 500MG *ER* TAB PO SCH (07:56)
[2016-02-21] MEDS: SENOKOT S TAB PO SCH ×2 (07:56→19:30)
[2016-02-21] MEDS: QUEtiapine FUMARATE 200 MG TAB PO SCH ×2 (07:56→19:30)
[2016-02-21] MEDS: risperiDONE 0.5 MG TAB PO SCH ×2 (07:56→19:29)
[2016-02-21] MEDS: THIAMINE 100 MG TAB PO SCH (07:56)
[2016-02-21] MEDS: FOLIC ACID 1 MG TAB PO SCH (07:56)
[2016-02-21] MEDS: COSOPT OCUMETER PLUS 10ML (DORZOLAMIDE/TIMOLOL) OU SCH ×2 (07:57→19:30)
[2016-02-21] MEDS: MULTIVITAMINS/MINERALS THERAP 1 TAB PO SCH (07:58)
[2016-02-21 08:00] VITALS: BP 117/63
[2016-02-22 08:00] VITALS: BP 127/65
[2016-02-22] MEDS: MULTIVITAMINS/MINERALS THERAP 1 TAB PO SCH (08:10)
[2016-02-22] MEDS: FUROSEMIDE 40 MG TAB PO SCH (08:10)
[2016-02-22] MEDS: COSOPT OCUMETER PLUS 10ML (DORZOLAMIDE/TIMOLOL) OU SCH ×2 (08:10→19:17)
[2016-02-22] MEDS: QUEtiapine FUMARATE 200 MG TAB PO SCH ×2 (08:10→19:17)
[2016-02-22] MEDS: THIAMINE 100 MG TAB PO SCH (08:10)
[2016-02-22] MEDS: SENOKOT S TAB PO SCH ×2 (08:10→19:17)
[2016-02-22] MEDS: risperiDONE 0.5 MG TAB PO SCH ×2 (08:10→19:17)
[2016-02-22] MEDS: FOLIC ACID 1 MG TAB PO SCH (08:10)
[2016-02-22] MEDS: DIVALPROEX 500MG *ER* TAB PO SCH (08:11)
[2016-02-22] MEDS: POTASSIUM CHLORIDE 10 MEQ SR TABLET PO SCH (08:11)
[2016-02-22] MEDS: ASPIRIN 81 MG ENTERIC TAB PO SCH (08:13)
[2016-02-23 07:00] VITALS: BP 125/72
[2016-02-23] MEDS: ASPIRIN 81 MG ENTERIC TAB PO SCH (08:43)
[2016-02-23] MEDS: FOLIC ACID 1 MG TAB PO SCH (08:43)
[2016-02-23] MEDS: MULTIVITAMINS/MINERALS THERAP 1 TAB PO SCH (08:43)
[2016-02-23] MEDS: risperiDONE 0.5 MG TAB PO SCH ×2 (08:43→19:15)
[2016-02-23] MEDS: THIAMINE 100 MG TAB PO SCH (08:43)
[2016-02-23] MEDS: DIVALPROEX 500MG *ER* TAB PO SCH (08:43)
[2016-02-23] MEDS: COSOPT OCUMETER PLUS 10ML (DORZOLAMIDE/TIMOLOL) OU SCH ×2 (08:43→19:15)
[2016-02-23] MEDS: QUEtiapine FUMARATE 200 MG TAB PO SCH ×2 (08:44→19:15)
[2016-02-23] MEDS: FUROSEMIDE 40 MG TAB PO SCH (08:44)
[2016-02-23] MEDS: SENOKOT S TAB PO SCH ×2 (08:44→19:15)
[2016-02-23] MEDS: POTASSIUM CHLORIDE 10 MEQ SR TABLET PO SCH (08:44)
[2016-02-24 06:37] LABS: MEAN CORPUSCULAR HEMOGLOBIN 33.9 pg (27.0-33.0); MEAN CORPUSCULAR VOLUME 102.6 fl (80.0-96.0); WHITE BLOOD COUNT 5.4 K/mm3 (5.0-10.0)
[2016-02-24 06:56] LABS: ANION GAP 6 MEQ/L (8-16); BLOOD UREA NITROGEN 17 MG/DL (7-18); CALCIUM LEVEL 8.7 MG/DL (8.8-10.2); CARBON DIOXIDE LEVEL 30 MEQ/L (21-32); CHLORIDE LEVEL 104 MEQ/L (98-107); GLOMERULAR FILTRATION RATE > 60.0 (>49); GLUCOSE, FASTING 81 MG/DL (80-110); POTASSIUM SERUM 4.3 MEQ/L (3.5-5.1); SODIUM LEVEL 140 MEQ/L (136-145)
[2016-02-24 07:00] VITALS: BP 110/57
[2016-02-24] MEDS: QUEtiapine FUMARATE 200 MG TAB PO SCH ×2 (08:32→19:45)
[2016-02-24] MEDS: FOLIC ACID 1 MG TAB PO SCH (08:32)
[2016-02-24] MEDS: SENOKOT S TAB PO SCH ×2 (08:32→19:44)
[2016-02-24] MEDS: POTASSIUM CHLORIDE 10 MEQ SR TABLET PO SCH (08:32)
[2016-02-24] MEDS: THIAMINE 100 MG TAB PO SCH (08:32)
[2016-02-24] MEDS: FUROSEMIDE 40 MG TAB PO SCH (08:32)
[2016-02-24] MEDS: MULTIVITAMINS/MINERALS THERAP 1 TAB PO SCH (08:32)
[2016-02-24] MEDS: ASPIRIN 81 MG ENTERIC TAB PO SCH (08:32)
[2016-02-24] MEDS: risperiDONE 0.5 MG TAB PO SCH ×2 (08:32→19:44)
[2016-02-24] MEDS: DIVALPROEX 500MG *ER* TAB PO SCH (08:33)
[2016-02-24] MEDS: COSOPT OCUMETER PLUS 10ML (DORZOLAMIDE/TIMOLOL) OU SCH ×2 (08:33→19:44)
[2016-02-25 07:00] VITALS: BP 111/65
[2016-02-25] MEDS: FUROSEMIDE 40 MG TAB PO SCH (08:44)
[2016-02-25] MEDS: POTASSIUM CHLORIDE 10 MEQ SR TABLET PO SCH (08:44)
[2016-02-25] MEDS: THIAMINE 100 MG TAB PO SCH (08:44)
[2016-02-25] MEDS: QUEtiapine FUMARATE 200 MG TAB PO SCH ×2 (08:44→19:28)
[2016-02-25] MEDS: FOLIC ACID 1 MG TAB PO SCH (08:44)
[2016-02-25] MEDS: MULTIVITAMINS/MINERALS THERAP 1 TAB PO SCH (08:44)
[2016-02-25] MEDS: risperiDONE 0.5 MG TAB PO SCH ×2 (08:44→19:28)
[2016-02-25] MEDS: ASPIRIN 81 MG ENTERIC TAB PO SCH (08:44)
[2016-02-25] MEDS: SENOKOT S TAB PO SCH ×2 (08:44→19:28)
[2016-02-25] MEDS: DIVALPROEX 500MG *ER* TAB PO SCH (08:45)
[2016-02-25] MEDS: COSOPT OCUMETER PLUS 10ML (DORZOLAMIDE/TIMOLOL) OU SCH ×2 (08:45→19:28)
[2016-02-26 08:00] VITALS: BP 116/68
[2016-02-26] MEDS: risperiDONE 0.5 MG TAB PO SCH ×2 (08:28→19:40)
[2016-02-26] MEDS: FUROSEMIDE 40 MG TAB PO SCH (08:28)
[2016-02-26] MEDS: COSOPT OCUMETER PLUS 10ML (DORZOLAMIDE/TIMOLOL) OU SCH ×2 (08:28→19:40)
[2016-02-26] MEDS: QUEtiapine FUMARATE 200 MG TAB PO SCH ×2 (08:28→19:40)
[2016-02-26] MEDS: THIAMINE 100 MG TAB PO SCH (08:28)
[2016-02-26] MEDS: ASPIRIN 81 MG ENTERIC TAB PO SCH (08:28)
[2016-02-26] MEDS: POTASSIUM CHLORIDE 10 MEQ SR TABLET PO SCH (08:28)
[2016-02-26] MEDS: FOLIC ACID 1 MG TAB PO SCH (08:28)
[2016-02-26] MEDS: MULTIVITAMINS/MINERALS THERAP 1 TAB PO SCH (08:28)
[2016-02-26] MEDS: DIVALPROEX 500MG *ER* TAB PO SCH (08:29)
[2016-02-26] MEDS: SENOKOT S TAB PO SCH ×2 (08:29→19:40)
[2016-02-27 08:02] VITALS: BP 133/59
[2016-02-27] MEDS: POTASSIUM CHLORIDE 10 MEQ SR TABLET PO SCH (08:16)
[2016-02-27] MEDS: COSOPT OCUMETER PLUS 10ML (DORZOLAMIDE/TIMOLOL) OU SCH ×2 (08:16→19:38)
[2016-02-27] MEDS: SENOKOT S TAB PO SCH ×2 (08:17→19:38)
[2016-02-27] MEDS: FOLIC ACID 1 MG TAB PO SCH (08:17)
[2016-02-27] MEDS: risperiDONE 0.5 MG TAB PO SCH ×2 (08:17→19:38)
[2016-02-27] MEDS: DIVALPROEX 500MG *ER* TAB PO SCH (08:17)
[2016-02-27] MEDS: ASPIRIN 81 MG ENTERIC TAB PO SCH (08:17)
[2016-02-27] MEDS: QUEtiapine FUMARATE 200 MG TAB PO SCH ×2 (08:17→19:38)
[2016-02-27] MEDS: FUROSEMIDE 40 MG TAB PO SCH (08:17)
[2016-02-27] MEDS: MULTIVITAMINS/MINERALS THERAP 1 TAB PO SCH (08:17)
[2016-02-27] MEDS: THIAMINE 100 MG TAB PO SCH (08:17)
--- NOTE | 2016-02-27 18:32 | IPN ---
DATE: 02/25/2016 Mr. Chavez is feeling well. He has no complaints of pain. He is quite happy to have been outside today even though it was a little rainy. Temperature 97.8, pulse 62, respiratory rate 14, blood pressure 111/65, 98% on room air. Intake and output notable for a positive fluid balance of +1440 yesterday, one bowel movement. Body mass index is 22.4. He is awake, appropriately interactive, pleasantly conversant. Heart is distant sounding. Breathing is symmetrical and rested, speaking in complete sentences, no accessory muscle use. Abdomen is soft, doughy, nontender. White cell count 5.4, hemoglobin 11.8, platelets 139, creatinine 0.7. My assessment is as follows: This is a 65-year-old with history of bipolar disorder, alcoholic dementia. Plan is as follows: 1. Patient has been seen by psychiatry. Plan is for a supervised living arrangement. 2. Patient has history of a seizure disorder. 3. Patient has history of alcoholism. 4. Patient has hypertension. 5. Patient has glaucoma. 6. Patient has chronic obstructive pulmonary disease (COPD). [facility]
[2016-02-28 07:47] VITALS: BP 111/66
[2016-02-28] MEDS: risperiDONE 0.5 MG TAB PO SCH ×2 (08:13→19:41)
[2016-02-28] MEDS: FUROSEMIDE 40 MG TAB PO SCH (08:13)
[2016-02-28] MEDS: POTASSIUM CHLORIDE 10 MEQ SR TABLET PO SCH (08:13)
[2016-02-28] MEDS: DIVALPROEX 500MG *ER* TAB PO SCH (08:13)
[2016-02-28] MEDS: THIAMINE 100 MG TAB PO SCH (08:13)
[2016-02-28] MEDS: SENOKOT S TAB PO SCH ×2 (08:14→19:41)
[2016-02-28] MEDS: MULTIVITAMINS/MINERALS THERAP 1 TAB PO SCH (08:14)
[2016-02-28] MEDS: QUEtiapine FUMARATE 200 MG TAB PO SCH ×2 (08:14→19:41)
[2016-02-28] MEDS: COSOPT OCUMETER PLUS 10ML (DORZOLAMIDE/TIMOLOL) OU SCH ×2 (08:14→19:41)
[2016-02-28] MEDS: FOLIC ACID 1 MG TAB PO SCH (08:14)
[2016-02-28] MEDS: ASPIRIN 81 MG ENTERIC TAB PO SCH (08:14)
[2016-02-29 07:00] VITALS: BP 128/69
[2016-02-29] MEDS: SENOKOT S TAB PO SCH ×2 (09:00→19:29)
[2016-02-29] MEDS: FOLIC ACID 1 MG TAB PO SCH (09:23)
[2016-02-29] MEDS: THIAMINE 100 MG TAB PO SCH (09:23)
[2016-02-29] MEDS: ASPIRIN 81 MG ENTERIC TAB PO SCH (09:23)
[2016-02-29] MEDS: FUROSEMIDE 40 MG TAB PO SCH (09:23)
[2016-02-29] MEDS: MULTIVITAMINS/MINERALS THERAP 1 TAB PO SCH (09:23)
[2016-02-29] MEDS: POTASSIUM CHLORIDE 10 MEQ SR TABLET PO SCH (09:23)
[2016-02-29] MEDS: risperiDONE 0.5 MG TAB PO SCH ×2 (09:23→19:28)
[2016-02-29] MEDS: QUEtiapine FUMARATE 200 MG TAB PO SCH ×2 (09:23→19:28)
[2016-02-29] MEDS: COSOPT OCUMETER PLUS 10ML (DORZOLAMIDE/TIMOLOL) OU SCH ×2 (09:24→19:27)
[2016-02-29] MEDS: DIVALPROEX 500MG *ER* TAB PO SCH (09:27)
[2016-03-01 07:00] VITALS: BP 118/82
[2016-03-01] MEDS: ASPIRIN 81 MG ENTERIC TAB PO SCH (08:15)
[2016-03-01] MEDS: QUEtiapine FUMARATE 200 MG TAB PO SCH ×2 (08:15→19:46)
[2016-03-01] MEDS: MULTIVITAMINS/MINERALS THERAP 1 TAB PO SCH (08:15)
[2016-03-01] MEDS: SENOKOT S TAB PO SCH ×2 (08:15→19:46)
[2016-03-01] MEDS: THIAMINE 100 MG TAB PO SCH (08:15)
[2016-03-01] MEDS: risperiDONE 0.5 MG TAB PO SCH ×2 (08:15→19:45)
[2016-03-01] MEDS: FOLIC ACID 1 MG TAB PO SCH (08:15)
[2016-03-01] MEDS: POTASSIUM CHLORIDE 10 MEQ SR TABLET PO SCH (08:15)
[2016-03-01] MEDS: COSOPT OCUMETER PLUS 10ML (DORZOLAMIDE/TIMOLOL) OU SCH ×2 (08:16→21:12)
[2016-03-01] MEDS: FUROSEMIDE 40 MG TAB PO SCH (08:16)
[2016-03-01] MEDS: DIVALPROEX 500MG *ER* TAB PO SCH (08:16)
[2016-03-02 07:30] VITALS: BP 124/75
[2016-03-02] MEDS: QUEtiapine FUMARATE 200 MG TAB PO SCH ×2 (08:17→19:21)
[2016-03-02] MEDS: POTASSIUM CHLORIDE 10 MEQ SR TABLET PO SCH (08:17)
[2016-03-02] MEDS: SENOKOT S TAB PO SCH ×2 (08:17→19:21)
[2016-03-02] MEDS: DIVALPROEX 500MG *ER* TAB PO SCH (08:17)
[2016-03-02] MEDS: THIAMINE 100 MG TAB PO SCH (08:18)
[2016-03-02] MEDS: MULTIVITAMINS/MINERALS THERAP 1 TAB PO SCH (08:18)
[2016-03-02] MEDS: FOLIC ACID 1 MG TAB PO SCH (08:18)
[2016-03-02] MEDS: risperiDONE 0.5 MG TAB PO SCH ×2 (08:18→19:21)
[2016-03-02] MEDS: FUROSEMIDE 40 MG TAB PO SCH (08:18)
[2016-03-02] MEDS: ASPIRIN 81 MG ENTERIC TAB PO SCH (08:18)
[2016-03-02] MEDS: COSOPT OCUMETER PLUS 10ML (DORZOLAMIDE/TIMOLOL) OU SCH ×2 (08:20→19:21)
[2016-03-03 07:42] VITALS: BP 137/79
[2016-03-03] MEDS ORDERED: INFLUENZA VIRUS VACCINE HIGH DOSE 0.5 ML SYRINGE (90662) IM ONE (09:00)
[2016-03-03] MEDS: DIVALPROEX 500MG *ER* TAB PO SCH (09:04)
[2016-03-03] MEDS: QUEtiapine FUMARATE 200 MG TAB PO SCH ×2 (09:05→20:31)
[2016-03-03] MEDS: POTASSIUM CHLORIDE 10 MEQ SR TABLET PO SCH (09:05)
[2016-03-03] MEDS: THIAMINE 100 MG TAB PO SCH (09:06)
[2016-03-03] MEDS: risperiDONE 0.5 MG TAB PO SCH ×2 (09:06→20:31)
[2016-03-03] MEDS: SENOKOT S TAB PO SCH ×2 (09:06→20:31)
[2016-03-03] MEDS: ASPIRIN 81 MG ENTERIC TAB PO SCH (09:07)
[2016-03-03] MEDS: MULTIVITAMINS/MINERALS THERAP 1 TAB PO SCH (09:07)
[2016-03-03] MEDS: FUROSEMIDE 40 MG TAB PO SCH (09:07)
[2016-03-03] MEDS: FOLIC ACID 1 MG TAB PO SCH (09:08)
[2016-03-03] MEDS: COSOPT OCUMETER PLUS 10ML (DORZOLAMIDE/TIMOLOL) OU SCH ×2 (09:08→20:31)
[2016-03-04 07:00] VITALS: BP 124/73
[2016-03-04] MEDS: COSOPT OCUMETER PLUS 10ML (DORZOLAMIDE/TIMOLOL) OU SCH ×2 (08:45→20:17)
[2016-03-04] MEDS: SENOKOT S TAB PO SCH ×2 (08:45→20:17)
[2016-03-04] MEDS: ASPIRIN 81 MG ENTERIC TAB PO SCH (08:46)
[2016-03-04] MEDS: THIAMINE 100 MG TAB PO SCH (08:46)
[2016-03-04] MEDS: POTASSIUM CHLORIDE 10 MEQ SR TABLET PO SCH (08:46)
[2016-03-04] MEDS: MULTIVITAMINS/MINERALS THERAP 1 TAB PO SCH (08:46)
[2016-03-04] MEDS: QUEtiapine FUMARATE 200 MG TAB PO SCH ×2 (08:46→20:17)
[2016-03-04] MEDS: FOLIC ACID 1 MG TAB PO SCH (08:46)
[2016-03-04] MEDS: DIVALPROEX 500MG *ER* TAB PO SCH (08:46)
[2016-03-04] MEDS: FUROSEMIDE 40 MG TAB PO SCH (08:46)
[2016-03-04] MEDS: risperiDONE 0.5 MG TAB PO SCH ×2 (08:46→20:17)
[2016-03-05 07:00] VITALS: BP 118/67
[2016-03-05] MEDS: SENOKOT S TAB PO SCH ×2 (08:27→19:39)
[2016-03-05] MEDS: risperiDONE 0.5 MG TAB PO SCH ×2 (08:27→19:39)
[2016-03-05] MEDS: THIAMINE 100 MG TAB PO SCH (08:27)
[2016-03-05] MEDS: QUEtiapine FUMARATE 200 MG TAB PO SCH ×2 (08:27→19:38)
[2016-03-05] MEDS: MULTIVITAMINS/MINERALS THERAP 1 TAB PO SCH (08:27)
[2016-03-05] MEDS: FOLIC ACID 1 MG TAB PO SCH (08:27)
[2016-03-05] MEDS: COSOPT OCUMETER PLUS 10ML (DORZOLAMIDE/TIMOLOL) OU SCH ×2 (08:27→19:39)
[2016-03-05] MEDS: POTASSIUM CHLORIDE 10 MEQ SR TABLET PO SCH (08:28)
[2016-03-05] MEDS: DIVALPROEX 500MG *ER* TAB PO SCH (08:28)
[2016-03-05] MEDS: FUROSEMIDE 40 MG TAB PO SCH (08:28)
[2016-03-05] MEDS: ASPIRIN 81 MG ENTERIC TAB PO SCH (08:28)
--- NOTE | 2016-03-05 09:58 | IPN ---
DATE: 03/02/2016 SUBJECTIVE: The patient seen and examined at bedside. The patient has no new complaints today. Is anxious to be discharged. OBJECTIVE: VITAL SIGNS: Temperature 96.1, pulse 63, respirations 18, blood pressure 137/79. Pulse oximetry is 95% on room air. GENERAL: No acute distress. Sitting comfortably in chair. HEENT: Normocephalic, atraumatic. LUNGS: Clear to auscultation bilaterally. CARDIAC: Normal S1, S2. Regular rate and rhythm. ABDOMEN: Soft, nontender. Positive bowel sounds. EXTREMITIES: No edema. NEUROLOGICAL: Alert, awake. ASSESSMENT: This is a 65-year-old gentleman with history of alcoholic dementia and bipolar disorder, currently awaiting placement. PLAN: 1. Seizure disorder. Will continue with Risperdal and Depakote. 2. Glaucoma. Will continue with Cosopt. 3. History of alcohol abuse. Continue with folic acid, thiamin and multivitamin. 4. Hypertension. 5. Chronic obstructive pulmonary disease (COPD). 6. Deep venous thrombosis (DVT) prophylaxis. Encouraging ambulation with mechanical prophylaxis. DISPOSITION: Currently awaiting placement. apartment. [facility]
[2016-03-06 08:00] VITALS: BP 120/78
[2016-03-06] MEDS: ASPIRIN 81 MG ENTERIC TAB PO SCH (09:56)
[2016-03-06] MEDS: SENOKOT S TAB PO SCH ×2 (09:56→20:26)
[2016-03-06] MEDS: MULTIVITAMINS/MINERALS THERAP 1 TAB PO SCH (09:56)
[2016-03-06] MEDS: COSOPT OCUMETER PLUS 10ML (DORZOLAMIDE/TIMOLOL) OU SCH ×2 (09:56→20:27)
[2016-03-06] MEDS: FOLIC ACID 1 MG TAB PO SCH (09:56)
[2016-03-06] MEDS: THIAMINE 100 MG TAB PO SCH (09:56)
[2016-03-06] MEDS: DIVALPROEX 500MG *ER* TAB PO SCH (09:56)
[2016-03-06] MEDS: risperiDONE 0.5 MG TAB PO SCH ×2 (09:56→20:27)
[2016-03-06] MEDS: POTASSIUM CHLORIDE 10 MEQ SR TABLET PO SCH (09:56)
[2016-03-06] MEDS: QUEtiapine FUMARATE 200 MG TAB PO SCH ×2 (09:56→20:26)
[2016-03-06] MEDS: FUROSEMIDE 40 MG TAB PO SCH (09:57)
[2016-03-07 07:00] VITALS: BP 118/74
[2016-03-07] MEDS: ASPIRIN 81 MG ENTERIC TAB PO SCH (09:10)
[2016-03-07] MEDS: COSOPT OCUMETER PLUS 10ML (DORZOLAMIDE/TIMOLOL) OU SCH ×2 (09:10→20:28)
[2016-03-07] MEDS: THIAMINE 100 MG TAB PO SCH (09:11)
[2016-03-07] MEDS: FOLIC ACID 1 MG TAB PO SCH (09:11)
[2016-03-07] MEDS: FUROSEMIDE 40 MG TAB PO SCH (09:11)
[2016-03-07] MEDS: DIVALPROEX 500MG *ER* TAB PO SCH (09:11)
[2016-03-07] MEDS: MULTIVITAMINS/MINERALS THERAP 1 TAB PO SCH (09:11)
[2016-03-07] MEDS: POTASSIUM CHLORIDE 10 MEQ SR TABLET PO SCH (09:11)
[2016-03-07] MEDS: risperiDONE 0.5 MG TAB PO SCH ×2 (09:11→20:28)
[2016-03-07] MEDS: QUEtiapine FUMARATE 200 MG TAB PO SCH ×2 (09:11→20:28)
[2016-03-07] MEDS: SENOKOT S TAB PO SCH ×2 (09:11→20:28)
--- NOTE | 2016-03-07 17:00 | IPN ---
DATE: 03/07/2016 SUBJECTIVE: Mr. Chavez is doing well today. Enjoys the view in his new room, enjoying breakfast of eggs and vieyra. Is looking to have his clothes laundered. OBJECTIVE: VITAL SIGNS: Temperature 96.5, pulse 78, respiratory rate 18, blood pressure 120/78, 99% on room air. Intake and output notable for positive fluid balance yesterday of 1321. GENERAL: He is awake, alert, pleasantly conversant. LUNGS: Breathing is symmetrical, rested. HEART: Distant sounding normal S1, S2. ABDOMEN: Soft, doughy. LABORATORY DATA: White cell count 5.4, hemoglobin 11.8, platelets of 139. Most recent BUN 17 and creatinine 0.7. ASSESSMENT: This is a 65-year-old gentleman with history of alcoholic dementia and bipolar disorder, awaiting placement PLAN: 1. The patient has seizure disorder. Continue on the Risperdal and Depakote. 2. The patient has glaucoma. Continue on Cosopt. 3. The patient has history of alcohol use. Continue with folic acid, thiamine, and multivitamin. 4. The patient has hypertension. 5. The patient has chronic obstructive pulmonary disease (COPD). 6. The patient has appropriate deep venous thrombosis (DVT) prophylaxis.
[2016-03-08 07:00] VITALS: BP 150/79
[2016-03-08] MEDS: risperiDONE 0.5 MG TAB PO SCH ×2 (08:17→19:35)
[2016-03-08] MEDS: POTASSIUM CHLORIDE 10 MEQ SR TABLET PO SCH (08:17)
[2016-03-08] MEDS: SENOKOT S TAB PO SCH ×2 (08:17→19:35)
[2016-03-08] MEDS: ASPIRIN 81 MG ENTERIC TAB PO SCH (08:18)
[2016-03-08] MEDS: FOLIC ACID 1 MG TAB PO SCH (08:18)
[2016-03-08] MEDS: DIVALPROEX 500MG *ER* TAB PO SCH (08:18)
[2016-03-08] MEDS: MULTIVITAMINS/MINERALS THERAP 1 TAB PO SCH (08:18)
[2016-03-08] MEDS: THIAMINE 100 MG TAB PO SCH (08:18)
[2016-03-08] MEDS: QUEtiapine FUMARATE 200 MG TAB PO SCH ×2 (08:18→19:35)
[2016-03-08] MEDS: COSOPT OCUMETER PLUS 10ML (DORZOLAMIDE/TIMOLOL) OU SCH ×2 (08:18→19:34)
[2016-03-08] MEDS: FUROSEMIDE 40 MG TAB PO SCH (08:18)
[2016-03-09 07:00] VITALS: BP 134/80
[2016-03-09] MEDS: ASPIRIN 81 MG ENTERIC TAB PO SCH (09:40)
[2016-03-09] MEDS: POTASSIUM CHLORIDE 10 MEQ SR TABLET PO SCH (09:40)
[2016-03-09] MEDS: DIVALPROEX 500MG *ER* TAB PO SCH (09:40)
[2016-03-09] MEDS: SENOKOT S TAB PO SCH ×2 (09:41→19:58)
[2016-03-09] MEDS: QUEtiapine FUMARATE 200 MG TAB PO SCH ×2 (09:41→19:58)
[2016-03-09] MEDS: FOLIC ACID 1 MG TAB PO SCH (09:41)
[2016-03-09] MEDS: FUROSEMIDE 40 MG TAB PO SCH (09:41)
[2016-03-09] MEDS: MULTIVITAMINS/MINERALS THERAP 1 TAB PO SCH (09:41)
[2016-03-09] MEDS: COSOPT OCUMETER PLUS 10ML (DORZOLAMIDE/TIMOLOL) OU SCH ×2 (09:41→19:58)
[2016-03-09] MEDS: THIAMINE 100 MG TAB PO SCH (09:41)
[2016-03-09] MEDS: risperiDONE 0.5 MG TAB PO SCH ×2 (09:41→19:58)
[2016-03-10 07:00] VITALS: BP 111/65
[2016-03-10] MEDS: risperiDONE 0.5 MG TAB PO SCH ×2 (09:21→19:58)
[2016-03-10] MEDS: THIAMINE 100 MG TAB PO SCH (09:21)
[2016-03-10] MEDS: ASPIRIN 81 MG ENTERIC TAB PO SCH (09:21)
[2016-03-10] MEDS: FOLIC ACID 1 MG TAB PO SCH (09:21)
[2016-03-10] MEDS: SENOKOT S TAB PO SCH ×2 (09:21→19:59)
[2016-03-10] MEDS: QUEtiapine FUMARATE 200 MG TAB PO SCH ×2 (09:21→19:58)
[2016-03-10] MEDS: MULTIVITAMINS/MINERALS THERAP 1 TAB PO SCH (09:21)
[2016-03-10] MEDS: FUROSEMIDE 40 MG TAB PO SCH (09:21)
[2016-03-10] MEDS: DIVALPROEX 500MG *ER* TAB PO SCH (09:22)
[2016-03-10] MEDS: POTASSIUM CHLORIDE 10 MEQ SR TABLET PO SCH (09:22)
[2016-03-10] MEDS: COSOPT OCUMETER PLUS 10ML (DORZOLAMIDE/TIMOLOL) OU SCH ×2 (09:22→19:58)
[2016-03-11 07:20] VITALS: BP 125/89
[2016-03-11] MEDS: COSOPT OCUMETER PLUS 10ML (DORZOLAMIDE/TIMOLOL) OU SCH ×2 (08:30→19:51)
[2016-03-11] MEDS: ASPIRIN 81 MG ENTERIC TAB PO SCH (08:30)
[2016-03-11] MEDS: risperiDONE 0.5 MG TAB PO SCH ×2 (08:30→19:51)
[2016-03-11] MEDS: DIVALPROEX 500MG *ER* TAB PO SCH (08:30)
[2016-03-11] MEDS: QUEtiapine FUMARATE 200 MG TAB PO SCH ×2 (08:31→19:51)
[2016-03-11] MEDS: FUROSEMIDE 40 MG TAB PO SCH (08:31)
[2016-03-11] MEDS: THIAMINE 100 MG TAB PO SCH (08:31)
[2016-03-11] MEDS: SENOKOT S TAB PO SCH ×2 (08:31→19:51)
[2016-03-11] MEDS: MULTIVITAMINS/MINERALS THERAP 1 TAB PO SCH (08:31)
[2016-03-11] MEDS: FOLIC ACID 1 MG TAB PO SCH (08:31)
[2016-03-11] MEDS: POTASSIUM CHLORIDE 10 MEQ SR TABLET PO SCH (08:31)
[2016-03-12 08:00] VITALS: BP 172/89
[2016-03-12] MEDS: COSOPT OCUMETER PLUS 10ML (DORZOLAMIDE/TIMOLOL) OU SCH ×2 (09:35→19:38)
[2016-03-12] MEDS: DIVALPROEX 500MG *ER* TAB PO SCH (09:36)
[2016-03-12] MEDS: MULTIVITAMINS/MINERALS THERAP 1 TAB PO SCH (09:36)
[2016-03-12] MEDS: POTASSIUM CHLORIDE 10 MEQ SR TABLET PO SCH (09:36)
[2016-03-12] MEDS: risperiDONE 0.5 MG TAB PO SCH ×2 (09:36→19:38)
[2016-03-12] MEDS: SENOKOT S TAB PO SCH ×2 (09:36→19:38)
[2016-03-12] MEDS: QUEtiapine FUMARATE 200 MG TAB PO SCH ×2 (09:38→19:38)
[2016-03-12] MEDS: FOLIC ACID 1 MG TAB PO SCH (09:38)
[2016-03-12] MEDS: THIAMINE 100 MG TAB PO SCH (09:38)
[2016-03-12] MEDS: ASPIRIN 81 MG ENTERIC TAB PO SCH (09:38)
[2016-03-12] MEDS: FUROSEMIDE 40 MG TAB PO SCH (09:38)
[2016-03-13 07:00] VITALS: BP_SYST 136; BP_SYST 163; BP_DIAS 74
[2016-03-13] MEDS: ASPIRIN 81 MG ENTERIC TAB PO SCH (08:23)
[2016-03-13] MEDS: risperiDONE 0.5 MG TAB PO SCH ×2 (08:23→19:44)
[2016-03-13] MEDS: QUEtiapine FUMARATE 200 MG TAB PO SCH ×2 (08:23→19:44)
[2016-03-13] MEDS: FOLIC ACID 1 MG TAB PO SCH (08:23)
[2016-03-13] MEDS: THIAMINE 100 MG TAB PO SCH (08:23)
[2016-03-13] MEDS: COSOPT OCUMETER PLUS 10ML (DORZOLAMIDE/TIMOLOL) OU SCH ×2 (08:23→19:43)
[2016-03-13] MEDS: POTASSIUM CHLORIDE 10 MEQ SR TABLET PO SCH (08:23)
[2016-03-13] MEDS: FUROSEMIDE 40 MG TAB PO SCH (08:23)
[2016-03-13] MEDS: MULTIVITAMINS/MINERALS THERAP 1 TAB PO SCH (08:23)
[2016-03-13] MEDS: SENOKOT S TAB PO SCH ×2 (08:23→19:44)
[2016-03-13] MEDS: DIVALPROEX 500MG *ER* TAB PO SCH (08:24)
[2016-03-14 07:00] VITALS: BP 140/75
[2016-03-14] MEDS: MULTIVITAMINS/MINERALS THERAP 1 TAB PO SCH (08:32)
[2016-03-14] MEDS: QUEtiapine FUMARATE 200 MG TAB PO SCH ×2 (08:32→19:53)
[2016-03-14] MEDS: COSOPT OCUMETER PLUS 10ML (DORZOLAMIDE/TIMOLOL) OU SCH ×2 (08:32→19:53)
[2016-03-14] MEDS: ASPIRIN 81 MG ENTERIC TAB PO SCH (08:32)
[2016-03-14] MEDS: SENOKOT S TAB PO SCH ×2 (08:32→19:53)
[2016-03-14] MEDS: POTASSIUM CHLORIDE 10 MEQ SR TABLET PO SCH (08:32)
[2016-03-14] MEDS: risperiDONE 0.5 MG TAB PO SCH ×2 (08:32→19:53)
[2016-03-14] MEDS: THIAMINE 100 MG TAB PO SCH (08:32)
[2016-03-14] MEDS: FOLIC ACID 1 MG TAB PO SCH (08:32)
[2016-03-14] MEDS: FUROSEMIDE 40 MG TAB PO SCH (08:32)
[2016-03-14] MEDS: DIVALPROEX 500MG *ER* TAB PO SCH (08:33)
--- NOTE | 2016-03-14 12:58 | IPN ---
DATE: 03/13/2016 Mr. Chavez is quite clear this morning. He remembers me from previous encounters. He has no complaints of pain, chest pain, shortness of breath. He is inquiring as to the weather, and is concerned about how he will get his belongings out of storage. Is looking forward to getting out of the hospital. PHYSICAL EXAMINATION: Temperature is 98.2, pulse 75, respiratory rate 18, blood pressure is 172/89, which is now higher for previous blood pressures. Input and output notable for a positive fluid balance of 1320. No bowel movements recorded in a couple of days. He is awake, appropriately interactive, pleasantly conversant. Mucous membranes are moist. NECK: Supple. LUNGS: Breathing is symmetrical and rested. LABORATORY DATA: There are no recent laboratories for me to review. ASSESSMENT: This is a 65-year-old gentleman with alcoholic dementia and bipolar disorder, awaiting placement. PLAN: 1. The patient has alcoholic dementia and bipolar disorder. Continue on Risperdal, Depakote. He is on folic acid, thiamine and multivitamin. 2. The patient has glaucoma. Continue Cosopt. 3. The patient has hypertension, which is reasonably well controlled. We will monitor. I believe today's reading is an outlier based on my evaluation. 4. The patient has a history of chronic obstructive pulmonary disease (COPD), which is compensated. 5. The patient has appropriate deep vein thrombosis (DVT) prophylaxis.
[2016-03-15 07:00] VITALS: BP 124/75
[2016-03-15] MEDS: SENOKOT S TAB PO SCH ×2 (08:42→19:28)
[2016-03-15] MEDS: MULTIVITAMINS/MINERALS THERAP 1 TAB PO SCH (08:42)
[2016-03-15] MEDS: FUROSEMIDE 40 MG TAB PO SCH (08:43)
[2016-03-15] MEDS: risperiDONE 0.5 MG TAB PO SCH ×2 (08:43→19:28)
[2016-03-15] MEDS: FOLIC ACID 1 MG TAB PO SCH (08:43)
[2016-03-15] MEDS: THIAMINE 100 MG TAB PO SCH (08:43)
[2016-03-15] MEDS: DIVALPROEX 500MG *ER* TAB PO SCH (08:43)
[2016-03-15] MEDS: POTASSIUM CHLORIDE 10 MEQ SR TABLET PO SCH (08:43)
[2016-03-15] MEDS: QUEtiapine FUMARATE 200 MG TAB PO SCH ×2 (08:43→19:28)
[2016-03-15] MEDS: ASPIRIN 81 MG ENTERIC TAB PO SCH (08:43)
[2016-03-15] MEDS: COSOPT OCUMETER PLUS 10ML (DORZOLAMIDE/TIMOLOL) OU SCH ×2 (08:43→19:28)
[2016-03-16 07:00] VITALS: BP 130/63
[2016-03-16 07:21] LABS: MEAN CORPUSCULAR HEMOGLOBIN 33.1 pg (27.0-33.0); MEAN CORPUSCULAR HGB CONC 32.6 g/dl (32.0-36.5); MEAN CORPUSCULAR VOLUME 101.5 fl (80.0-96.0); RED CELL DISTRIBUTION WIDTH 15.1 % (11.5-14.5); WHITE BLOOD COUNT 6.1 K/mm3 (4.0-10.0)
[2016-03-16 07:30] LABS: ANION GAP 6 MEQ/L (8-16); BLOOD UREA NITROGEN 20 MG/DL (7-18); CALCIUM LEVEL 8.8 MG/DL (8.8-10.2); CARBON DIOXIDE LEVEL 30 MEQ/L (21-32); CHLORIDE LEVEL 104 MEQ/L (98-107); CREATININE FOR GFR 0.74 MG/DL (0.70-1.30); GLOMERULAR FILTRATION RATE > 60.0 (>49); GLUCOSE, FASTING 79 MG/DL (80-110); POTASSIUM SERUM 4.1 MEQ/L (3.5-5.1); SODIUM LEVEL 140 MEQ/L (136-145)
[2016-03-16] MEDS: QUEtiapine FUMARATE 200 MG TAB PO SCH ×2 (08:43→19:46)
[2016-03-16] MEDS: FUROSEMIDE 40 MG TAB PO SCH (08:43)
[2016-03-16] MEDS: FOLIC ACID 1 MG TAB PO SCH (08:43)
[2016-03-16] MEDS: ASPIRIN 81 MG ENTERIC TAB PO SCH (08:43)
[2016-03-16] MEDS: THIAMINE 100 MG TAB PO SCH (08:43)
[2016-03-16] MEDS: risperiDONE 0.5 MG TAB PO SCH ×2 (08:43→19:46)
[2016-03-16] MEDS: MULTIVITAMINS/MINERALS THERAP 1 TAB PO SCH (08:43)
[2016-03-16] MEDS: POTASSIUM CHLORIDE 10 MEQ SR TABLET PO SCH (08:43)
[2016-03-16] MEDS: SENOKOT S TAB PO SCH ×2 (08:43→19:46)
[2016-03-16] MEDS: DIVALPROEX 500MG *ER* TAB PO SCH (08:44)
[2016-03-16] MEDS: COSOPT OCUMETER PLUS 10ML (DORZOLAMIDE/TIMOLOL) OU SCH ×2 (08:44→19:46)
[2016-03-17 07:03] LABS: MEAN CORPUSCULAR HEMOGLOBIN 33.3 pg (27.0-33.0); MEAN CORPUSCULAR HGB CONC 33.4 g/dl (32.0-36.5); MEAN CORPUSCULAR VOLUME 99.7 fl (80.0-96.0); WHITE BLOOD COUNT 6.3 K/mm3 (4.0-10.0)
[2016-03-17 08:03] VITALS: BP 155/82
[2016-03-17] MEDS: FUROSEMIDE 40 MG TAB PO SCH (08:17)
[2016-03-17] MEDS: SENOKOT S TAB PO SCH ×2 (08:17→19:38)
[2016-03-17] MEDS: POTASSIUM CHLORIDE 10 MEQ SR TABLET PO SCH (08:17)
[2016-03-17] MEDS: ASPIRIN 81 MG ENTERIC TAB PO SCH (08:17)
[2016-03-17] MEDS: MULTIVITAMINS/MINERALS THERAP 1 TAB PO SCH (08:17)
[2016-03-17] MEDS: FOLIC ACID 1 MG TAB PO SCH (08:17)
[2016-03-17] MEDS: THIAMINE 100 MG TAB PO SCH (08:17)
[2016-03-17] MEDS: risperiDONE 0.5 MG TAB PO SCH ×2 (08:18→19:38)
[2016-03-17] MEDS: QUEtiapine FUMARATE 200 MG TAB PO SCH ×2 (08:18→19:37)
[2016-03-17] MEDS: DIVALPROEX 500MG *ER* TAB PO SCH (08:18)
[2016-03-17] MEDS: COSOPT OCUMETER PLUS 10ML (DORZOLAMIDE/TIMOLOL) OU SCH ×2 (08:19→19:37)
[2016-03-18 07:00] VITALS: BP 119/78
[2016-03-18] MEDS: ASPIRIN 81 MG ENTERIC TAB PO SCH (08:14)
[2016-03-18] MEDS: COSOPT OCUMETER PLUS 10ML (DORZOLAMIDE/TIMOLOL) OU SCH ×2 (08:14→19:37)
[2016-03-18] MEDS: QUEtiapine FUMARATE 200 MG TAB PO SCH ×2 (08:14→19:38)
[2016-03-18] MEDS: risperiDONE 0.5 MG TAB PO SCH ×2 (08:14→19:38)
[2016-03-18] MEDS: FOLIC ACID 1 MG TAB PO SCH (08:14)
[2016-03-18] MEDS: POTASSIUM CHLORIDE 10 MEQ SR TABLET PO SCH (08:15)
[2016-03-18] MEDS: SENOKOT S TAB PO SCH ×2 (08:15→19:38)
[2016-03-18] MEDS: DIVALPROEX 500MG *ER* TAB PO SCH (08:15)
[2016-03-18] MEDS: THIAMINE 100 MG TAB PO SCH (08:15)
[2016-03-18] MEDS: MULTIVITAMINS/MINERALS THERAP 1 TAB PO SCH (08:15)
[2016-03-18] MEDS: FUROSEMIDE 40 MG TAB PO SCH (08:15)
[2016-03-19 07:00] VITALS: BP 152/75
[2016-03-19] MEDS: MULTIVITAMINS/MINERALS THERAP 1 TAB PO SCH (08:04)
[2016-03-19] MEDS: ASPIRIN 81 MG ENTERIC TAB PO SCH (08:04)
[2016-03-19] MEDS: QUEtiapine FUMARATE 200 MG TAB PO SCH ×2 (08:04→19:47)
[2016-03-19] MEDS: COSOPT OCUMETER PLUS 10ML (DORZOLAMIDE/TIMOLOL) OU SCH ×2 (08:04→19:48)
[2016-03-19] MEDS: DIVALPROEX 500MG *ER* TAB PO SCH (08:05)
[2016-03-19] MEDS: SENOKOT S TAB PO SCH ×2 (08:05→19:47)
[2016-03-19] MEDS: POTASSIUM CHLORIDE 10 MEQ SR TABLET PO SCH (08:05)
[2016-03-19] MEDS: FOLIC ACID 1 MG TAB PO SCH (08:05)
[2016-03-19] MEDS: risperiDONE 0.5 MG TAB PO SCH ×2 (08:05→19:47)
[2016-03-19] MEDS: THIAMINE 100 MG TAB PO SCH (08:05)
[2016-03-19] MEDS: FUROSEMIDE 40 MG TAB PO SCH (08:05)
[2016-03-20] MEDS: FOLIC ACID 1 MG TAB PO SCH (09:04)
[2016-03-20] MEDS: THIAMINE 100 MG TAB PO SCH (09:04)
[2016-03-20] MEDS: SENOKOT S TAB PO SCH ×2 (09:04→20:50)
[2016-03-20] MEDS: DIVALPROEX 500MG *ER* TAB PO SCH (09:04)
[2016-03-20] MEDS: QUEtiapine FUMARATE 200 MG TAB PO SCH ×2 (09:04→20:50)
[2016-03-20] MEDS: MULTIVITAMINS/MINERALS THERAP 1 TAB PO SCH (09:04)
[2016-03-20] MEDS: COSOPT OCUMETER PLUS 10ML (DORZOLAMIDE/TIMOLOL) OU SCH ×2 (09:04→20:52)
[2016-03-20] MEDS: POTASSIUM CHLORIDE 10 MEQ SR TABLET PO SCH (09:04)
[2016-03-20] MEDS: ASPIRIN 81 MG ENTERIC TAB PO SCH (09:05)
[2016-03-20] MEDS: FUROSEMIDE 40 MG TAB PO SCH (09:05)
[2016-03-20] MEDS: risperiDONE 0.5 MG TAB PO SCH ×2 (09:05→20:50)
[2016-03-21 07:30] VITALS: BP 129/74
[2016-03-21] MEDS: DIVALPROEX 500MG *ER* TAB PO SCH (08:53)
[2016-03-21] MEDS: COSOPT OCUMETER PLUS 10ML (DORZOLAMIDE/TIMOLOL) OU SCH ×2 (08:53→21:16)
[2016-03-21] MEDS: MULTIVITAMINS/MINERALS THERAP 1 TAB PO SCH (08:54)
[2016-03-21] MEDS: FOLIC ACID 1 MG TAB PO SCH (08:54)
[2016-03-21] MEDS: FUROSEMIDE 40 MG TAB PO SCH (08:54)
[2016-03-21] MEDS: SENOKOT S TAB PO SCH ×2 (08:54→21:16)
[2016-03-21] MEDS: risperiDONE 0.5 MG TAB PO SCH ×2 (08:54→21:16)
[2016-03-21] MEDS: POTASSIUM CHLORIDE 10 MEQ SR TABLET PO SCH (08:54)
[2016-03-21] MEDS: QUEtiapine FUMARATE 200 MG TAB PO SCH ×2 (08:54→21:16)
[2016-03-21] MEDS: THIAMINE 100 MG TAB PO SCH (08:54)
[2016-03-21] MEDS: ASPIRIN 81 MG ENTERIC TAB PO SCH (08:54)
--- NOTE | 2016-03-21 13:59 | IPNPDOC ---
Text Note Date of Service The patient was seen on 03/21/16 at 13:53. NOTE: Subjective: Patient is a 65-year-old male with a past medical history of hypertension, glaucoma, chronic obstructive pulmonary disease (COPD), chronic alcoholism, macrocytic anemia, bipolar disorder, alcohol-related dementia, hernia repair, history of seizure disorder. The patient presented to the emergency room with a three or four month history of memory issues and was admitted for altered mental status. He was diagnosed with alcoholic dementia. The patient received an electroencephalogram (EEG) which showed no seizure activity. Currently, patient has been seen and examined at the bedside . He is awake, alert and oriented times three. No new problems reported. Objective: Vitals (See below) General: Lying in bed, NAD, Comfortable, AAOx3 HEENT: NC, AT CVS: RRR, +S1S2 Lungs: Fair air entry bilaterally, No wheezing / rales / rhonchi Abdomen: Soft, ND, NT, +BSx4 Extremities: +PPx4, No calf tenderness, 1+ LE edema bilaterally Assessment and Plan: 1. Alcoholic dementia and bipolar disorder - c/w Risperdal, Depakote - c/w folic acid, thiamine and multivitamin - Currently, patient is being evaluated for outpatient disposition to a nursing center - He does not have the capacity to make decisions 2. Glaucoma - c/w Cosopt 3. Hypertension - well controlled 4. COPD - No evidence of exacerbation - c/w Duoneb PRN 5. DVT prophylaxis - c/w ambulation VS,Fishbone, I+O VS, Fishbone, I+O Vital Signs Date Time Temp Pulse Resp B/P Pulse Ox O2 Delivery O2 Flow Rate FiO2 03/21/16 07:30 95.1 68 16 129/74 98 Room Air I&O- Last 24 Hours up to 6 AM 03/21/16 06:00 Intake Total 1560 ml Output Total 0 ml Balance 1560 ml KOKI NICHOLS MD Mar 21, 2016 13:59
[2016-03-22 07:00] VITALS: BP 148/98
[2016-03-22] MEDS: DIVALPROEX 500MG *ER* TAB PO SCH (08:28)
[2016-03-22] MEDS: FUROSEMIDE 40 MG TAB PO SCH (08:29)
[2016-03-22] MEDS: QUEtiapine FUMARATE 200 MG TAB PO SCH ×2 (08:29→20:16)
[2016-03-22] MEDS: COSOPT OCUMETER PLUS 10ML (DORZOLAMIDE/TIMOLOL) OU SCH ×2 (08:29→20:15)
[2016-03-22] MEDS: FOLIC ACID 1 MG TAB PO SCH (08:29)
[2016-03-22] MEDS: ASPIRIN 81 MG ENTERIC TAB PO SCH (08:29)
[2016-03-22] MEDS: risperiDONE 0.5 MG TAB PO SCH ×2 (08:29→20:16)
[2016-03-22] MEDS: POTASSIUM CHLORIDE 10 MEQ SR TABLET PO SCH (08:29)
[2016-03-22] MEDS: MULTIVITAMINS/MINERALS THERAP 1 TAB PO SCH (08:29)
[2016-03-22] MEDS: SENOKOT S TAB PO SCH ×2 (08:29→20:16)
[2016-03-22] MEDS: THIAMINE 100 MG TAB PO SCH (08:29)
[2016-03-23 06:49] LABS: MEAN CORPUSCULAR HEMOGLOBIN 33.3 pg (27.0-33.0); MEAN CORPUSCULAR HGB CONC 33.9 g/dl (32.0-36.5); MEAN CORPUSCULAR VOLUME 98.3 fl (80.0-96.0); RED CELL DISTRIBUTION WIDTH 15.4 % (11.5-14.5); WHITE BLOOD COUNT 6.1 K/mm3 (4.0-10.0)
[2016-03-23 07:00] VITALS: BP 139/68
[2016-03-23 07:07] LABS: ANION GAP 5 MEQ/L (8-16); BLOOD UREA NITROGEN 15 MG/DL (7-18); CALCIUM LEVEL 8.6 MG/DL (8.8-10.2); CARBON DIOXIDE LEVEL 30 MEQ/L (21-32); CHLORIDE LEVEL 105 MEQ/L (98-107); CREATININE FOR GFR 0.73 MG/DL (0.70-1.30); GLOMERULAR FILTRATION RATE > 60.0 (>49); GLUCOSE, FASTING 82 MG/DL (80-110); POTASSIUM SERUM 4.1 MEQ/L (3.5-5.1); SODIUM LEVEL 140 MEQ/L (136-145)
[2016-03-23] MEDS: QUEtiapine FUMARATE 200 MG TAB PO SCH ×2 (09:43→19:53)
[2016-03-23] MEDS: SENOKOT S TAB PO SCH ×2 (09:43→19:53)
[2016-03-23] MEDS: MULTIVITAMINS/MINERALS THERAP 1 TAB PO SCH (09:43)
[2016-03-23] MEDS: DIVALPROEX 500MG *ER* TAB PO SCH (09:43)
[2016-03-23] MEDS: FUROSEMIDE 40 MG TAB PO SCH (09:43)
[2016-03-23] MEDS: THIAMINE 100 MG TAB PO SCH (09:44)
[2016-03-23] MEDS: POTASSIUM CHLORIDE 10 MEQ SR TABLET PO SCH (09:44)
[2016-03-23] MEDS: FOLIC ACID 1 MG TAB PO SCH (09:44)
[2016-03-23] MEDS: ASPIRIN 81 MG ENTERIC TAB PO SCH (09:44)
[2016-03-23] MEDS: risperiDONE 0.5 MG TAB PO SCH ×2 (09:44→19:53)
[2016-03-23] MEDS: COSOPT OCUMETER PLUS 10ML (DORZOLAMIDE/TIMOLOL) OU SCH ×2 (09:44→19:52)
[2016-03-24 07:00] VITALS: BP 128/76
[2016-03-24] MEDS: risperiDONE 0.5 MG TAB PO SCH ×2 (08:52→19:34)
[2016-03-24] MEDS: QUEtiapine FUMARATE 200 MG TAB PO SCH ×2 (08:52→19:34)
[2016-03-24] MEDS: FOLIC ACID 1 MG TAB PO SCH (08:52)
[2016-03-24] MEDS: FUROSEMIDE 40 MG TAB PO SCH (08:52)
[2016-03-24] MEDS: ASPIRIN 81 MG ENTERIC TAB PO SCH (08:52)
[2016-03-24] MEDS: THIAMINE 100 MG TAB PO SCH (08:52)
[2016-03-24] MEDS: DIVALPROEX 500MG *ER* TAB PO SCH (08:52)
[2016-03-24] MEDS: SENOKOT S TAB PO SCH ×2 (08:52→19:34)
[2016-03-24] MEDS: MULTIVITAMINS/MINERALS THERAP 1 TAB PO SCH (08:52)
[2016-03-24] MEDS: POTASSIUM CHLORIDE 10 MEQ SR TABLET PO SCH (08:52)
[2016-03-24] MEDS: COSOPT OCUMETER PLUS 10ML (DORZOLAMIDE/TIMOLOL) OU SCH ×2 (08:52→19:34)
[2016-03-25 07:00] VITALS: BP 134/71
[2016-03-25] MEDS: COSOPT OCUMETER PLUS 10ML (DORZOLAMIDE/TIMOLOL) OU SCH ×2 (08:32→20:50)
[2016-03-25] MEDS: FUROSEMIDE 40 MG TAB PO SCH (08:33)
[2016-03-25] MEDS: ASPIRIN 81 MG ENTERIC TAB PO SCH (08:33)
[2016-03-25] MEDS: risperiDONE 0.5 MG TAB PO SCH ×2 (08:33→20:50)
[2016-03-25] MEDS: POTASSIUM CHLORIDE 10 MEQ SR TABLET PO SCH (08:33)
[2016-03-25] MEDS: FOLIC ACID 1 MG TAB PO SCH (08:33)
[2016-03-25] MEDS: QUEtiapine FUMARATE 200 MG TAB PO SCH ×2 (08:33→20:51)
[2016-03-25] MEDS: THIAMINE 100 MG TAB PO SCH (08:33)
[2016-03-25] MEDS: MULTIVITAMINS/MINERALS THERAP 1 TAB PO SCH (08:33)
[2016-03-25] MEDS: SENOKOT S TAB PO SCH ×2 (08:34→20:48)
[2016-03-25] MEDS: DIVALPROEX 500MG *ER* TAB PO SCH (08:34)
[2016-03-26 07:00] VITALS: BP 131/74
[2016-03-26] MEDS: DIVALPROEX 500MG *ER* TAB PO SCH (09:14)
[2016-03-26] MEDS: THIAMINE 100 MG TAB PO SCH (09:15)
[2016-03-26] MEDS: FUROSEMIDE 40 MG TAB PO SCH (09:15)
[2016-03-26] MEDS: MULTIVITAMINS/MINERALS THERAP 1 TAB PO SCH (09:15)
[2016-03-26] MEDS: POTASSIUM CHLORIDE 10 MEQ SR TABLET PO SCH (09:15)
[2016-03-26] MEDS: risperiDONE 0.5 MG TAB PO SCH ×2 (09:15→20:00)
[2016-03-26] MEDS: FOLIC ACID 1 MG TAB PO SCH (09:16)
[2016-03-26] MEDS: COSOPT OCUMETER PLUS 10ML (DORZOLAMIDE/TIMOLOL) OU SCH ×2 (09:16→20:00)
[2016-03-26] MEDS: SENOKOT S TAB PO SCH ×2 (09:16→20:00)
[2016-03-26] MEDS: ASPIRIN 81 MG ENTERIC TAB PO SCH (09:16)
[2016-03-26] MEDS: QUEtiapine FUMARATE 200 MG TAB PO SCH ×2 (09:16→20:00)
[2016-03-27 08:00] VITALS: BP 142/83
[2016-03-27] MEDS: QUEtiapine FUMARATE 200 MG TAB PO SCH ×2 (08:04→20:11)
[2016-03-27] MEDS: DIVALPROEX 500MG *ER* TAB PO SCH (08:04)
[2016-03-27] MEDS: FUROSEMIDE 40 MG TAB PO SCH (08:04)
[2016-03-27] MEDS: THIAMINE 100 MG TAB PO SCH (08:05)
[2016-03-27] MEDS: FOLIC ACID 1 MG TAB PO SCH (08:05)
[2016-03-27] MEDS: ASPIRIN 81 MG ENTERIC TAB PO SCH (08:05)
[2016-03-27] MEDS: POTASSIUM CHLORIDE 10 MEQ SR TABLET PO SCH (08:05)
[2016-03-27] MEDS: COSOPT OCUMETER PLUS 10ML (DORZOLAMIDE/TIMOLOL) OU SCH ×2 (08:05→20:11)
[2016-03-27] MEDS: MULTIVITAMINS/MINERALS THERAP 1 TAB PO SCH (08:05)
[2016-03-27] MEDS: risperiDONE 0.5 MG TAB PO SCH ×2 (08:05→20:11)
[2016-03-27] MEDS: SENOKOT S TAB PO SCH ×2 (08:05→20:11)
[2016-03-28 07:00] VITALS: BP 121/69
[2016-03-28] MEDS: DIVALPROEX 500MG *ER* TAB PO SCH (08:05)
[2016-03-28] MEDS: POTASSIUM CHLORIDE 10 MEQ SR TABLET PO SCH (08:06)
[2016-03-28] MEDS: COSOPT OCUMETER PLUS 10ML (DORZOLAMIDE/TIMOLOL) OU SCH ×2 (08:06→19:49)
[2016-03-28] MEDS: risperiDONE 0.5 MG TAB PO SCH ×2 (08:06→19:49)
[2016-03-28] MEDS: SENOKOT S TAB PO SCH ×2 (08:06→19:49)
[2016-03-28] MEDS: FUROSEMIDE 40 MG TAB PO SCH (08:06)
[2016-03-28] MEDS: THIAMINE 100 MG TAB PO SCH (08:06)
[2016-03-28] MEDS: FOLIC ACID 1 MG TAB PO SCH (08:06)
[2016-03-28] MEDS: QUEtiapine FUMARATE 200 MG TAB PO SCH ×2 (08:06→19:49)
[2016-03-28] MEDS: MULTIVITAMINS/MINERALS THERAP 1 TAB PO SCH (08:06)
[2016-03-28] MEDS: ASPIRIN 81 MG ENTERIC TAB PO SCH (08:06)
--- NOTE | 2016-03-28 17:45 | IPNPDOC ---
Text Note Date of Service The patient was seen on 03/28/16 at 17:45. NOTE: Subjective: Pt feels well. Denies any complaints. Objective: Vitals: (see below) General: No acute distress, laying comfortably in bed. HEENT: Moist mucous membranes. Neck: No JVD or lymphadenopathy Cardiac: RRR, No murmurs Pulm: Clear to auscultation b/l. No wheezing, rhonchi Abd: NT/ND + BS Ext: No edema or cyanosis Labs (see below) Images: Assessment/Plan 1. Hepatic encephalopathy and bipolar d/o - cont current meds including risperdal and depakote. 2. Glaucoma - cont cosopt 3. HTN - controlled 4. COPD - controlled. Nebs PRN DVT prophy: OOB/Ambulate. Dispo:Does not have capacity to make his own decisions, and awaiting placement. VS,Fishbone, I+O VS, Fishbone, I+O Vital Signs Date Time Temp Pulse Resp B/P Pulse Ox O2 Delivery O2 Flow Rate FiO2 03/28/16 07:00 95.5 65 18 121/69 95 Room Air I&O- Last 24 Hours up to 6 AM 03/28/16 05:59 Intake Total 1560 ml Balance 1560 ml SAMMY PLAZA MD Mar 28, 2016 17:45
[2016-03-29 07:00] VITALS: BP 134/76
[2016-03-29] MEDS: MULTIVITAMINS/MINERALS THERAP 1 TAB PO SCH (09:50)
[2016-03-29] MEDS: POTASSIUM CHLORIDE 10 MEQ SR TABLET PO SCH (09:50)
[2016-03-29] MEDS: ASPIRIN 81 MG ENTERIC TAB PO SCH (09:50)
[2016-03-29] MEDS: SENOKOT S TAB PO SCH ×2 (09:50→20:23)
[2016-03-29] MEDS: FOLIC ACID 1 MG TAB PO SCH (09:50)
[2016-03-29] MEDS: COSOPT OCUMETER PLUS 10ML (DORZOLAMIDE/TIMOLOL) OU SCH ×2 (09:50→20:23)
[2016-03-29] MEDS: risperiDONE 0.5 MG TAB PO SCH ×2 (09:51→20:23)
[2016-03-29] MEDS: FUROSEMIDE 40 MG TAB PO SCH (09:51)
[2016-03-29] MEDS: QUEtiapine FUMARATE 200 MG TAB PO SCH ×2 (09:51→20:23)
[2016-03-29] MEDS: DIVALPROEX 500MG *ER* TAB PO SCH (09:51)
[2016-03-29] MEDS: THIAMINE 100 MG TAB PO SCH (09:51)
[2016-03-30 06:56] LABS: MEAN CORPUSCULAR HEMOGLOBIN 32.9 pg (27.0-33.0); MEAN CORPUSCULAR HGB CONC 33.2 g/dl (32.0-36.5); MEAN CORPUSCULAR VOLUME 99.1 fl (80.0-96.0); RED CELL DISTRIBUTION WIDTH 15.3 % (11.5-14.5); WHITE BLOOD COUNT 8.2 K/mm3 (4.0-10.0)
[2016-03-30 06:59] LABS: ANION GAP 6 MEQ/L (8-16); BLOOD UREA NITROGEN 14 MG/DL (7-18); CALCIUM LEVEL 9.1 MG/DL (8.8-10.2); CARBON DIOXIDE LEVEL 31 MEQ/L (21-32); CHLORIDE LEVEL 102 MEQ/L (98-107); CREATININE FOR GFR 0.77 MG/DL (0.70-1.30); GLOMERULAR FILTRATION RATE > 60.0 (>49); GLUCOSE, FASTING 88 MG/DL (80-110); POTASSIUM SERUM 3.6 MEQ/L (3.5-5.1); SODIUM LEVEL 139 MEQ/L (136-145)
[2016-03-30 07:00] VITALS: BP 118/67
[2016-03-30] MEDS: COSOPT OCUMETER PLUS 10ML (DORZOLAMIDE/TIMOLOL) OU SCH ×2 (09:04→20:01)
[2016-03-30] MEDS: SENOKOT S TAB PO SCH ×2 (09:04→20:01)
[2016-03-30] MEDS: POTASSIUM CHLORIDE 10 MEQ SR TABLET PO SCH (09:04)
[2016-03-30] MEDS: ASPIRIN 81 MG ENTERIC TAB PO SCH (09:04)
[2016-03-30] MEDS: QUEtiapine FUMARATE 200 MG TAB PO SCH ×2 (09:04→20:01)
[2016-03-30] MEDS: FOLIC ACID 1 MG TAB PO SCH (09:04)
[2016-03-30] MEDS: THIAMINE 100 MG TAB PO SCH (09:04)
[2016-03-30] MEDS: FUROSEMIDE 40 MG TAB PO SCH (09:04)
[2016-03-30] MEDS: risperiDONE 0.5 MG TAB PO SCH ×2 (09:05→20:06)
[2016-03-30] MEDS: MULTIVITAMINS/MINERALS THERAP 1 TAB PO SCH (09:05)
[2016-03-30] MEDS: DIVALPROEX 500MG *ER* TAB PO SCH (09:05)
[2016-03-31 07:00] VITALS: BP 120/69
[2016-03-31] MEDS: QUEtiapine FUMARATE 200 MG TAB PO SCH ×2 (09:06→19:45)
[2016-03-31] MEDS: ASPIRIN 81 MG ENTERIC TAB PO SCH (09:06)
[2016-03-31] MEDS: risperiDONE 0.5 MG TAB PO SCH ×2 (09:06→19:45)
[2016-03-31] MEDS: FOLIC ACID 1 MG TAB PO SCH (09:06)
[2016-03-31] MEDS: DIVALPROEX 500MG *ER* TAB PO SCH (09:06)
[2016-03-31] MEDS: MULTIVITAMINS/MINERALS THERAP 1 TAB PO SCH (09:06)
[2016-03-31] MEDS: THIAMINE 100 MG TAB PO SCH (09:07)
[2016-03-31] MEDS: POTASSIUM CHLORIDE 10 MEQ SR TABLET PO SCH (09:07)
[2016-03-31] MEDS: FUROSEMIDE 40 MG TAB PO SCH (09:07)
[2016-03-31] MEDS: SENOKOT S TAB PO SCH ×2 (09:08→19:45)
[2016-03-31] MEDS: COSOPT OCUMETER PLUS 10ML (DORZOLAMIDE/TIMOLOL) OU SCH ×2 (09:08→19:45)
[2016-04-01 07:00] VITALS: BP 121/60
[2016-04-01] MEDS: MULTIVITAMINS/MINERALS THERAP 1 TAB PO SCH (08:20)
[2016-04-01] MEDS: FUROSEMIDE 40 MG TAB PO SCH (08:20)
[2016-04-01] MEDS: POTASSIUM CHLORIDE 10 MEQ SR TABLET PO SCH (08:20)
[2016-04-01] MEDS: QUEtiapine FUMARATE 200 MG TAB PO SCH ×2 (08:20→20:27)
[2016-04-01] MEDS: SENOKOT S TAB PO SCH ×2 (08:20→20:27)
[2016-04-01] MEDS: FOLIC ACID 1 MG TAB PO SCH (08:20)
[2016-04-01] MEDS: ASPIRIN 81 MG ENTERIC TAB PO SCH (08:20)
[2016-04-01] MEDS: risperiDONE 0.5 MG TAB PO SCH ×2 (08:20→20:27)
[2016-04-01] MEDS: THIAMINE 100 MG TAB PO SCH (08:20)
[2016-04-01] MEDS: COSOPT OCUMETER PLUS 10ML (DORZOLAMIDE/TIMOLOL) OU SCH ×2 (08:20→20:27)
[2016-04-01] MEDS: DIVALPROEX 500MG *ER* TAB PO SCH (08:21)
[2016-04-02 07:00] VITALS: BP 116/66
[2016-04-02] MEDS: ASPIRIN 81 MG ENTERIC TAB PO SCH (08:54)
[2016-04-02] MEDS: MULTIVITAMINS/MINERALS THERAP 1 TAB PO SCH (08:54)
[2016-04-02] MEDS: COSOPT OCUMETER PLUS 10ML (DORZOLAMIDE/TIMOLOL) OU SCH ×2 (08:54→20:27)
[2016-04-02] MEDS: risperiDONE 0.5 MG TAB PO SCH ×2 (08:54→20:27)
[2016-04-02] MEDS: SENOKOT S TAB PO SCH ×2 (08:54→20:27)
[2016-04-02] MEDS: FOLIC ACID 1 MG TAB PO SCH (08:54)
[2016-04-02] MEDS: FUROSEMIDE 40 MG TAB PO SCH (08:54)
[2016-04-02] MEDS: QUEtiapine FUMARATE 200 MG TAB PO SCH ×2 (08:54→20:27)
[2016-04-02] MEDS: THIAMINE 100 MG TAB PO SCH (08:54)
[2016-04-02] MEDS: DIVALPROEX 500MG *ER* TAB PO SCH (08:55)
[2016-04-02] MEDS: POTASSIUM CHLORIDE 10 MEQ SR TABLET PO SCH (08:55)
[2016-04-03 07:00] VITALS: BP 126/67
[2016-04-03] MEDS: DIVALPROEX 500MG *ER* TAB PO SCH (08:27)
[2016-04-03] MEDS: ASPIRIN 81 MG ENTERIC TAB PO SCH (08:27)
[2016-04-03] MEDS: FOLIC ACID 1 MG TAB PO SCH (08:27)
[2016-04-03] MEDS: FUROSEMIDE 40 MG TAB PO SCH (08:27)
[2016-04-03] MEDS: QUEtiapine FUMARATE 200 MG TAB PO SCH ×2 (08:28→19:56)
[2016-04-03] MEDS: COSOPT OCUMETER PLUS 10ML (DORZOLAMIDE/TIMOLOL) OU SCH ×2 (08:28→19:56)
[2016-04-03] MEDS: MULTIVITAMINS/MINERALS THERAP 1 TAB PO SCH (08:28)
[2016-04-03] MEDS: POTASSIUM CHLORIDE 10 MEQ SR TABLET PO SCH (08:28)
[2016-04-03] MEDS: SENOKOT S TAB PO SCH ×2 (08:28→19:56)
[2016-04-03] MEDS: THIAMINE 100 MG TAB PO SCH (08:28)
[2016-04-03] MEDS: risperiDONE 0.5 MG TAB PO SCH ×2 (08:28→19:56)
[2016-04-04 08:00] VITALS: BP 126/67
[2016-04-04] MEDS: POTASSIUM CHLORIDE 10 MEQ SR TABLET PO SCH (08:30)
[2016-04-04] MEDS: DIVALPROEX 500MG *ER* TAB PO SCH (08:30)
[2016-04-04] MEDS: THIAMINE 100 MG TAB PO SCH (08:30)
[2016-04-04] MEDS: FUROSEMIDE 40 MG TAB PO SCH (08:30)
[2016-04-04] MEDS: ASPIRIN 81 MG ENTERIC TAB PO SCH (08:30)
[2016-04-04] MEDS: QUEtiapine FUMARATE 200 MG TAB PO SCH ×2 (08:30→19:56)
[2016-04-04] MEDS: FOLIC ACID 1 MG TAB PO SCH (08:31)
[2016-04-04] MEDS: SENOKOT S TAB PO SCH ×2 (08:31→19:56)
[2016-04-04] MEDS: MULTIVITAMINS/MINERALS THERAP 1 TAB PO SCH (08:31)
[2016-04-04] MEDS: COSOPT OCUMETER PLUS 10ML (DORZOLAMIDE/TIMOLOL) OU SCH ×2 (08:31→19:55)
[2016-04-04] MEDS: risperiDONE 0.5 MG TAB PO SCH ×2 (08:31→19:56)
--- NOTE | 2016-04-04 10:42 | IPNPDOC ---
Text Note Date of Service The patient was seen on 04/04/16 at 10:42. NOTE: Subjective: Pt feels well. Denies any complaints. Watching TV. Has been ambulating. Objective: Vitals: (see below) General: No acute distress, laying comfortably in bed. HEENT: Moist mucous membranes. Neck: No JVD or lymphadenopathy Cardiac: RRR, No murmurs Pulm: Clear to auscultation b/l. No wheezing, rhonchi Abd: NT/ND + BS Ext: No edema or cyanosis Labs (see below) Images: Assessment/Plan 1. Hepatic encephalopathy and bipolar d/o - cont current meds including risperdal and depakote. 2. Glaucoma - cont cosopt 3. HTN - controlled 4. COPD - controlled. Nebs PRN DVT prophy: OOB/Ambulate. Dispo:Does not have capacity to make his own decisions, and awaiting placement. VS,Fishbone, I+O VS, Fishbone, I+O Vital Signs Date Time Temp Pulse Resp B/P Pulse Ox O2 Delivery O2 Flow Rate FiO2 04/04/16 08:00 96.6 74 18 126/67 96 04/03/16 07:00 Room Air I&O- Last 24 Hours up to 6 AM 04/04/16 06:00 Intake Total 1920 ml Balance 1920 ml SAMMY PLAZA MD Apr 04, 2016 10:42
[2016-04-05 08:00] VITALS: BP 128/67
[2016-04-05] MEDS: POTASSIUM CHLORIDE 10 MEQ SR TABLET PO SCH (08:40)
[2016-04-05] MEDS: THIAMINE 100 MG TAB PO SCH (08:40)
[2016-04-05] MEDS: risperiDONE 0.5 MG TAB PO SCH ×2 (08:40→19:39)
[2016-04-05] MEDS: COSOPT OCUMETER PLUS 10ML (DORZOLAMIDE/TIMOLOL) OU SCH ×2 (08:40→19:39)
[2016-04-05] MEDS: FUROSEMIDE 40 MG TAB PO SCH (08:40)
[2016-04-05] MEDS: QUEtiapine FUMARATE 200 MG TAB PO SCH ×2 (08:40→19:39)
[2016-04-05] MEDS: FOLIC ACID 1 MG TAB PO SCH (08:41)
[2016-04-05] MEDS: DIVALPROEX 500MG *ER* TAB PO SCH (08:41)
[2016-04-05] MEDS: MULTIVITAMINS/MINERALS THERAP 1 TAB PO SCH (08:41)
[2016-04-05] MEDS: SENOKOT S TAB PO SCH ×2 (08:41→19:39)
[2016-04-05] MEDS: ASPIRIN 81 MG ENTERIC TAB PO SCH (08:41)
[2016-04-06 07:58] LABS: MEAN CORPUSCULAR HEMOGLOBIN 33.8 pg (27.0-33.0); MEAN CORPUSCULAR HGB CONC 33.3 g/dl (32.0-36.5); MEAN CORPUSCULAR VOLUME 101.5 fl (80.0-96.0); RED CELL DISTRIBUTION WIDTH 15.3 % (11.5-14.5); WHITE BLOOD COUNT 6.2 K/mm3 (4.0-10.0)
[2016-04-06 08:00] VITALS: BP 112/72
[2016-04-06] MEDS: MULTIVITAMINS/MINERALS THERAP 1 TAB PO SCH (08:19)
[2016-04-06] MEDS: QUEtiapine FUMARATE 200 MG TAB PO SCH ×2 (08:19→20:27)
[2016-04-06] MEDS: COSOPT OCUMETER PLUS 10ML (DORZOLAMIDE/TIMOLOL) OU SCH ×2 (08:19→20:27)
[2016-04-06] MEDS: FUROSEMIDE 40 MG TAB PO SCH (08:19)
[2016-04-06] MEDS: THIAMINE 100 MG TAB PO SCH (08:19)
[2016-04-06] MEDS: risperiDONE 0.5 MG TAB PO SCH ×2 (08:19→20:28)
[2016-04-06] MEDS: FOLIC ACID 1 MG TAB PO SCH (08:19)
[2016-04-06] MEDS: ASPIRIN 81 MG ENTERIC TAB PO SCH (08:19)
[2016-04-06] MEDS: POTASSIUM CHLORIDE 10 MEQ SR TABLET PO SCH (08:19)
[2016-04-06] MEDS: SENOKOT S TAB PO SCH ×2 (08:19→20:28)
[2016-04-06] MEDS: DIVALPROEX 500MG *ER* TAB PO SCH (08:20)
[2016-04-06 08:33] LABS: ANION GAP 8 MEQ/L (8-16); BLOOD UREA NITROGEN 11 MG/DL (7-18); CALCIUM LEVEL 8.9 MG/DL (8.8-10.2); CARBON DIOXIDE LEVEL 28 MEQ/L (21-32); CHLORIDE LEVEL 102 MEQ/L (98-107); CREATININE FOR GFR 0.67 MG/DL (0.70-1.30); GLOMERULAR FILTRATION RATE > 60.0 (>49); GLUCOSE, FASTING 96 MG/DL (80-110); SODIUM LEVEL 138 MEQ/L (136-145)
[2016-04-07 07:00] VITALS: BP 144/70
[2016-04-07] MEDS: FOLIC ACID 1 MG TAB PO SCH (08:20)
[2016-04-07] MEDS: POTASSIUM CHLORIDE 10 MEQ SR TABLET PO SCH (08:20)
[2016-04-07] MEDS: FUROSEMIDE 40 MG TAB PO SCH (08:20)
[2016-04-07] MEDS: COSOPT OCUMETER PLUS 10ML (DORZOLAMIDE/TIMOLOL) OU SCH ×2 (08:20→20:04)
[2016-04-07] MEDS: SENOKOT S TAB PO SCH ×2 (08:20→20:05)
[2016-04-07] MEDS: QUEtiapine FUMARATE 200 MG TAB PO SCH ×2 (08:20→20:05)
[2016-04-07] MEDS: DIVALPROEX 500MG *ER* TAB PO SCH (08:20)
[2016-04-07] MEDS: ASPIRIN 81 MG ENTERIC TAB PO SCH (08:20)
[2016-04-07] MEDS: MULTIVITAMINS/MINERALS THERAP 1 TAB PO SCH (08:20)
[2016-04-07] MEDS: THIAMINE 100 MG TAB PO SCH (08:20)
[2016-04-07] MEDS: risperiDONE 0.5 MG TAB PO SCH ×2 (08:21→20:05)
[2016-04-08 07:59] VITALS: BP 140/77
[2016-04-08] MEDS: DIVALPROEX 500MG *ER* TAB PO SCH (09:03)
[2016-04-08] MEDS: risperiDONE 0.5 MG TAB PO SCH ×2 (09:04→19:50)
[2016-04-08] MEDS: QUEtiapine FUMARATE 200 MG TAB PO SCH ×2 (09:04→19:50)
[2016-04-08] MEDS: THIAMINE 100 MG TAB PO SCH (09:04)
[2016-04-08] MEDS: FUROSEMIDE 40 MG TAB PO SCH (09:04)
[2016-04-08] MEDS: POTASSIUM CHLORIDE 10 MEQ SR TABLET PO SCH (09:04)
[2016-04-08] MEDS: SENOKOT S TAB PO SCH ×2 (09:05→19:50)
[2016-04-08] MEDS: MULTIVITAMINS/MINERALS THERAP 1 TAB PO SCH (09:05)
[2016-04-08] MEDS: COSOPT OCUMETER PLUS 10ML (DORZOLAMIDE/TIMOLOL) OU SCH ×2 (09:05→19:50)
[2016-04-08] MEDS: ASPIRIN 81 MG ENTERIC TAB PO SCH (09:05)
[2016-04-08] MEDS: FOLIC ACID 1 MG TAB PO SCH (09:05)
[2016-04-09 07:39] VITALS: BP 134/71
[2016-04-09] MEDS: COSOPT OCUMETER PLUS 10ML (DORZOLAMIDE/TIMOLOL) OU SCH ×2 (08:42→20:07)
[2016-04-09] MEDS: FUROSEMIDE 40 MG TAB PO SCH (08:43)
[2016-04-09] MEDS: QUEtiapine FUMARATE 200 MG TAB PO SCH ×2 (08:43→20:06)
[2016-04-09] MEDS: risperiDONE 0.5 MG TAB PO SCH ×2 (08:43→20:06)
[2016-04-09] MEDS: FOLIC ACID 1 MG TAB PO SCH (08:43)
[2016-04-09] MEDS: DIVALPROEX 500MG *ER* TAB PO SCH (08:43)
[2016-04-09] MEDS: ASPIRIN 81 MG ENTERIC TAB PO SCH (08:43)
[2016-04-09] MEDS: THIAMINE 100 MG TAB PO SCH (08:43)
[2016-04-09] MEDS: POTASSIUM CHLORIDE 10 MEQ SR TABLET PO SCH (08:43)
[2016-04-09] MEDS: SENOKOT S TAB PO SCH ×2 (08:43→20:06)
[2016-04-09] MEDS: MULTIVITAMINS/MINERALS THERAP 1 TAB PO SCH (08:43)
[2016-04-10 07:00] VITALS: BP 118/68
[2016-04-10] MEDS: ASPIRIN 81 MG ENTERIC TAB PO SCH (08:55)
[2016-04-10] MEDS: COSOPT OCUMETER PLUS 10ML (DORZOLAMIDE/TIMOLOL) OU SCH ×2 (08:55→19:50)
[2016-04-10] MEDS: MULTIVITAMINS/MINERALS THERAP 1 TAB PO SCH (08:55)
[2016-04-10] MEDS: POTASSIUM CHLORIDE 10 MEQ SR TABLET PO SCH (08:55)
[2016-04-10] MEDS: QUEtiapine FUMARATE 200 MG TAB PO SCH ×2 (08:55→19:50)
[2016-04-10] MEDS: SENOKOT S TAB PO SCH ×2 (08:55→19:50)
[2016-04-10] MEDS: FUROSEMIDE 40 MG TAB PO SCH (08:55)
[2016-04-10] MEDS: risperiDONE 0.5 MG TAB PO SCH ×2 (08:55→19:51)
[2016-04-10] MEDS: FOLIC ACID 1 MG TAB PO SCH (08:55)
[2016-04-10] MEDS: THIAMINE 100 MG TAB PO SCH (08:55)
[2016-04-10] MEDS: DIVALPROEX 500MG *ER* TAB PO SCH (08:56)
[2016-04-11 07:00] VITALS: BP 129/81
[2016-04-11] MEDS: MULTIVITAMINS/MINERALS THERAP 1 TAB PO SCH (08:02)
[2016-04-11] MEDS: THIAMINE 100 MG TAB PO SCH (08:02)
[2016-04-11] MEDS: SENOKOT S TAB PO SCH ×2 (08:02→20:12)
[2016-04-11] MEDS: FUROSEMIDE 40 MG TAB PO SCH (08:03)
[2016-04-11] MEDS: COSOPT OCUMETER PLUS 10ML (DORZOLAMIDE/TIMOLOL) OU SCH ×2 (08:03→20:12)
[2016-04-11] MEDS: FOLIC ACID 1 MG TAB PO SCH (08:03)
[2016-04-11] MEDS: ASPIRIN 81 MG ENTERIC TAB PO SCH (08:03)
[2016-04-11] MEDS: QUEtiapine FUMARATE 200 MG TAB PO SCH ×2 (08:03→20:12)
[2016-04-11] MEDS: risperiDONE 0.5 MG TAB PO SCH ×2 (08:03→20:12)
[2016-04-11] MEDS: POTASSIUM CHLORIDE 10 MEQ SR TABLET PO SCH (08:04)
[2016-04-11] MEDS: DIVALPROEX 500MG *ER* TAB PO SCH (08:04)
[2016-04-11] MEDS ORDERED: ENOXAPARIN 40 MG/0.4 ML SYRINGE (J1650) SC SCH (09:00)
[2016-04-11 09:42] VITALS: BP 125/60
--- NOTE | 2016-04-11 20:51 | IPN ---
DATE: 04/10/2016 SUBJECTIVE: This is a 66-year-old male who was seen and examined at bedside. No reported acute events. He feels well. Has been ambulating in the hallway without any difficulties. No chest pain, shortness of breath, palpitations, fevers, chills, night sweats. OBJECTIVE: VITAL SIGNS: Blood pressure 118/68, heart rate 75, temperature 98.4, respiratory rate 16, pulse oximetry 95% on room air. GENERAL: The patient was lying in bed comfortable. No acute distress. He is alert, awake, oriented times three. Pleasant, cooperative. HEENT: Normocephalic, atraumatic. Edentulous. NECK: Supple. Trachea midline. CHEST: Symmetric chest rise. No accessory muscle use. Breath sounds were clear to auscultation bilaterally. HEART: Regular rate and rhythm. S1, S2 present. ABDOMEN: Soft, nontender, nondistended. Bowel sounds present. No guarding. No rebound. EXTREMITIES: No pedal edema. Pedal pulses present bilaterally. LABORATORY DATA: No new laboratories since 04/06/2016. At that time, WBC 6.2, hemoglobin 12.9, hematocrit 38.6, platelets 127. Sodium 138, potassium 4.0, chloride 102, carbon dioxide 28, BUN 11, creatinine 0.67, glucose 96. IMPRESSION/PLAN: This is a 66-year-old male who previously was admitted for: 1. 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 His mentation appears to be improved compared to prior. Continue current dose of Depakote 2000 mg by mouth daily, folate and thiamine. 2. Hypertension. Continue Lasix 40 mg by mouth daily. 3. Bipolar. Continue Seroquel 200 mg by mouth twice a day, Risperdal 0.4 mg by mouth twice a day, and Depakote. 3. Constipation. Continue Senokot one tablet by mouth twice a day. 4. Deep vein thrombosis (DVT) prophylaxis. Sequential compression device (SCD) and thromboembolic compression stockings (TEDS). I have both independently examined this patient as well as reviewed the dictated note. I have discussed in detail with the resident the findings and plan of treatment as documented in the residents note. I will continue to follow the patient and offer further guidance to the patients care as necessary during this hospital stay. SAAD
[2016-04-12 07:00] VITALS: BP 127/71
[2016-04-12] MEDS: COSOPT OCUMETER PLUS 10ML (DORZOLAMIDE/TIMOLOL) OU SCH ×2 (08:01→20:05)
[2016-04-12] MEDS: SENOKOT S TAB PO SCH ×2 (08:01→20:05)
[2016-04-12] MEDS: MULTIVITAMINS/MINERALS THERAP 1 TAB PO SCH (08:01)
[2016-04-12] MEDS: risperiDONE 0.5 MG TAB PO SCH ×2 (08:01→20:05)
[2016-04-12] MEDS: QUEtiapine FUMARATE 200 MG TAB PO SCH ×2 (08:01→20:05)
[2016-04-12] MEDS: THIAMINE 100 MG TAB PO SCH (08:01)
[2016-04-12] MEDS: FOLIC ACID 1 MG TAB PO SCH (08:02)
[2016-04-12] MEDS: FUROSEMIDE 40 MG TAB PO SCH (08:02)
[2016-04-12] MEDS: POTASSIUM CHLORIDE 10 MEQ SR TABLET PO SCH (08:02)
[2016-04-12] MEDS: DIVALPROEX 500MG *ER* TAB PO SCH (08:02)
[2016-04-12] MEDS: ASPIRIN 81 MG ENTERIC TAB PO SCH (08:02)
[2016-04-13 06:50] LABS: MEAN CORPUSCULAR HEMOGLOBIN 33.6 pg (27.0-33.0); MEAN CORPUSCULAR HGB CONC 32.9 g/dl (32.0-36.5); WHITE BLOOD COUNT 7.3 K/mm3 (4.0-10.0)
[2016-04-13 07:00] VITALS: BP 123/72
[2016-04-13 07:06] LABS: ANION GAP 6 MEQ/L (8-16); BLOOD UREA NITROGEN 16 MG/DL (7-18); CALCIUM LEVEL 9.1 MG/DL (8.8-10.2); CARBON DIOXIDE LEVEL 29 MEQ/L (21-32); CHLORIDE LEVEL 101 MEQ/L (98-107); CREATININE FOR GFR 0.64 MG/DL (0.70-1.30); GLOMERULAR FILTRATION RATE > 60.0 (>49); GLUCOSE, FASTING 108 MG/DL (80-110); POTASSIUM SERUM 3.8 MEQ/L (3.5-5.1); SODIUM LEVEL 136 MEQ/L (136-145)
[2016-04-13] MEDS: SENOKOT S TAB PO SCH ×2 (08:34→19:52)
[2016-04-13] MEDS: DIVALPROEX 500MG *ER* TAB PO SCH (08:34)
[2016-04-13] MEDS: QUEtiapine FUMARATE 200 MG TAB PO SCH ×2 (08:34→19:52)
[2016-04-13] MEDS: MULTIVITAMINS/MINERALS THERAP 1 TAB PO SCH (08:34)
[2016-04-13] MEDS: POTASSIUM CHLORIDE 10 MEQ SR TABLET PO SCH (08:34)
[2016-04-13] MEDS: COSOPT OCUMETER PLUS 10ML (DORZOLAMIDE/TIMOLOL) OU SCH ×2 (08:34→19:52)
[2016-04-13] MEDS: ASPIRIN 81 MG ENTERIC TAB PO SCH (08:35)
[2016-04-13] MEDS: FUROSEMIDE 40 MG TAB PO SCH (08:35)
[2016-04-13] MEDS: risperiDONE 0.5 MG TAB PO SCH ×2 (08:35→19:52)
[2016-04-13] MEDS: THIAMINE 100 MG TAB PO SCH (08:35)
[2016-04-13] MEDS: FOLIC ACID 1 MG TAB PO SCH (08:35)
[2016-04-14 07:00] VITALS: BP 141/70
[2016-04-14] MEDS: FUROSEMIDE 40 MG TAB PO SCH (08:03)
[2016-04-14] MEDS: THIAMINE 100 MG TAB PO SCH (08:03)
[2016-04-14] MEDS: QUEtiapine FUMARATE 200 MG TAB PO SCH ×2 (08:03→19:52)
[2016-04-14] MEDS: ASPIRIN 81 MG ENTERIC TAB PO SCH (08:03)
[2016-04-14] MEDS: FOLIC ACID 1 MG TAB PO SCH (08:03)
[2016-04-14] MEDS: MULTIVITAMINS/MINERALS THERAP 1 TAB PO SCH (08:03)
[2016-04-14] MEDS: SENOKOT S TAB PO SCH ×2 (08:03→19:52)
[2016-04-14] MEDS: risperiDONE 0.5 MG TAB PO SCH ×2 (08:03→19:52)
[2016-04-14] MEDS: COSOPT OCUMETER PLUS 10ML (DORZOLAMIDE/TIMOLOL) OU SCH ×2 (08:03→19:52)
[2016-04-14] MEDS: POTASSIUM CHLORIDE 10 MEQ SR TABLET PO SCH (08:04)
[2016-04-14] MEDS: DIVALPROEX 500MG *ER* TAB PO SCH (08:04)
[2016-04-15 07:00] VITALS: BP 173/87
[2016-04-15] MEDS: MULTIVITAMINS/MINERALS THERAP 1 TAB PO SCH (08:48)
[2016-04-15] MEDS: QUEtiapine FUMARATE 200 MG TAB PO SCH ×2 (08:48→20:04)
[2016-04-15] MEDS: FUROSEMIDE 40 MG TAB PO SCH (08:48)
[2016-04-15] MEDS: THIAMINE 100 MG TAB PO SCH (08:48)
[2016-04-15] MEDS: POTASSIUM CHLORIDE 10 MEQ SR TABLET PO SCH (08:48)
[2016-04-15] MEDS: COSOPT OCUMETER PLUS 10ML (DORZOLAMIDE/TIMOLOL) OU SCH ×2 (08:48→20:04)
[2016-04-15] MEDS: risperiDONE 0.5 MG TAB PO SCH ×2 (08:48→20:04)
[2016-04-15] MEDS: SENOKOT S TAB PO SCH ×2 (08:48→20:04)
[2016-04-15] MEDS: FOLIC ACID 1 MG TAB PO SCH (08:48)
[2016-04-15] MEDS: ASPIRIN 81 MG ENTERIC TAB PO SCH (08:48)
[2016-04-15] MEDS: DIVALPROEX 500MG *ER* TAB PO SCH (08:49)
--- NOTE | 2016-04-16 05:23 | IPN ---
DATE OF SERVICE: 04/15/2016 SUBJECTIVE: This is a 66-year-old male who was seen and examined at bedside. Overnight, no reported acute events. This morning feels well. Denies any chest pain, shortness of breath, nausea, vomiting, diarrhea, constipation, fevers. He went to [facility] yesterday with his sister and bought some new clothes. OBJECTIVE: VITAL SIGNS: Blood pressure initially 173/87, heart rate 76, temperature 95.4, respiration rate 18, pulse oximetry 100% on room air. Recheck blood pressure was 120/78. GENERAL: Patient was lying in bed, comfortable, no acute distress. He is alert , awake, oriented times three, pleasant and cooperative. HEENT: Normocephalic, atraumatic. Moist oral mucosa. NECK: Supple. Trachea midline. CHEST: Symmetric chest rise, no accessory muscle use. Breath sounds were clear to auscultation bilaterally. HEART: Regular rate and rhythm, S1, S2 present. ABDOMEN: Soft, nontender, nondistended. Bowel sounds present. No guarding, no rebound. EXTREMITIES: Trace pedal edema. Pedal pulses present bilaterally. LABORATORY DATA: WBC 7.3, hemoglobin 12.9, hematocrit 39.3, platelets 160. Sodium 136, potassium 3.8, chloride 101, carbon dioxide 29, BUN 16, creatinine 0.6, glucose 108. IMPRESSION AND PLAN: Mr. Chavez is a 66-year-old male presented initially with : 1. 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 His mentation is now improved. Continue current dose of Depakote, which is his home medication, 2000 mg by mouth daily. Continue folate and thiamine. 2. Hypertension. Blood pressure continues to be reasonable. Continue Lasix 40 mg by mouth daily. 3. Bipolar disorder. Continue Seroquel 200 mg by mouth twice a day, Risperdal 0.4 mg by mouth twice a day and Depakote as above. 4. Hypokalemia secondary to diuretic use. Resolved now that he is on supplementation. Continue potassium 20 mEq daily. 5. Constipation. Continue Senokot one tablet by mouth twice a day. 6. Deep venous thrombosis (DVT) prophylaxis. Sequential compression devices (SCDs), thromboembolism deterrents (TEDs). Patient has been ambulating multiple times daily on the floor. My preceptor for this patient encounter was Dr. Sachi Jauregui. The preceptor was physically present in the building during the encounter and was fully available as needed. All aspects of the patient interview, examination, medical decision making process, and medical care plan development were reviewed and approved by the preceptor. The preceptor is aware and concurs with the plan as stated in the body of this note and will attest to such by his/her co-signature. SAAD
[2016-04-16 07:00] VITALS: BP 162/77
[2016-04-16] MEDS: FUROSEMIDE 40 MG TAB PO SCH (08:23)
[2016-04-16] MEDS: FOLIC ACID 1 MG TAB PO SCH (08:23)
[2016-04-16] MEDS: QUEtiapine FUMARATE 200 MG TAB PO SCH ×2 (08:23→20:22)
[2016-04-16] MEDS: SENOKOT S TAB PO SCH ×2 (08:23→20:21)
[2016-04-16] MEDS: ASPIRIN 81 MG ENTERIC TAB PO SCH (08:23)
[2016-04-16] MEDS: risperiDONE 0.5 MG TAB PO SCH ×2 (08:23→20:21)
[2016-04-16] MEDS: COSOPT OCUMETER PLUS 10ML (DORZOLAMIDE/TIMOLOL) OU SCH ×2 (08:23→20:22)
[2016-04-16] MEDS: THIAMINE 100 MG TAB PO SCH (08:23)
[2016-04-16] MEDS: MULTIVITAMINS/MINERALS THERAP 1 TAB PO SCH (08:23)
[2016-04-16] MEDS: POTASSIUM CHLORIDE 10 MEQ SR TABLET PO SCH (08:24)
[2016-04-16] MEDS: DIVALPROEX 500MG *ER* TAB PO SCH (08:24)
[2016-04-17 07:00] VITALS: BP 148/78
[2016-04-17] MEDS: ASPIRIN 81 MG ENTERIC TAB PO SCH (09:10)
[2016-04-17] MEDS: FUROSEMIDE 40 MG TAB PO SCH (09:10)
[2016-04-17] MEDS: DIVALPROEX 500MG *ER* TAB PO SCH (09:10)
[2016-04-17] MEDS: FOLIC ACID 1 MG TAB PO SCH (09:10)
[2016-04-17] MEDS: POTASSIUM CHLORIDE 10 MEQ SR TABLET PO SCH (09:11)
[2016-04-17] MEDS: MULTIVITAMINS/MINERALS THERAP 1 TAB PO SCH (09:11)
[2016-04-17] MEDS: QUEtiapine FUMARATE 200 MG TAB PO SCH ×2 (09:11→20:09)
[2016-04-17] MEDS: THIAMINE 100 MG TAB PO SCH (09:11)
[2016-04-17] MEDS: SENOKOT S TAB PO SCH ×2 (09:11→20:09)
[2016-04-17] MEDS: risperiDONE 0.5 MG TAB PO SCH ×2 (09:11→20:09)
[2016-04-17] MEDS: COSOPT OCUMETER PLUS 10ML (DORZOLAMIDE/TIMOLOL) OU SCH ×2 (09:15→20:09)
[2016-04-18 07:59] VITALS: BP 117/59
[2016-04-18] MEDS: COSOPT OCUMETER PLUS 10ML (DORZOLAMIDE/TIMOLOL) OU SCH ×2 (08:27→20:14)
[2016-04-18] MEDS: QUEtiapine FUMARATE 200 MG TAB PO SCH ×2 (08:28→20:14)
[2016-04-18] MEDS: MULTIVITAMINS/MINERALS THERAP 1 TAB PO SCH (08:28)
[2016-04-18] MEDS: THIAMINE 100 MG TAB PO SCH (08:28)
[2016-04-18] MEDS: risperiDONE 0.5 MG TAB PO SCH ×2 (08:28→20:14)
[2016-04-18] MEDS: POTASSIUM CHLORIDE 10 MEQ SR TABLET PO SCH (08:28)
[2016-04-18] MEDS: SENOKOT S TAB PO SCH ×2 (08:28→20:13)
[2016-04-18] MEDS: FOLIC ACID 1 MG TAB PO SCH (08:28)
[2016-04-18] MEDS: ASPIRIN 81 MG ENTERIC TAB PO SCH (08:28)
[2016-04-18] MEDS: DIVALPROEX 500MG *ER* TAB PO SCH (08:28)
[2016-04-18] MEDS: FUROSEMIDE 40 MG TAB PO SCH (08:28)
[2016-04-19 07:00] VITALS: BP 126/67
[2016-04-19] MEDS: SENOKOT S TAB PO SCH ×2 (08:14→19:51)
[2016-04-19] MEDS: COSOPT OCUMETER PLUS 10ML (DORZOLAMIDE/TIMOLOL) OU SCH ×2 (08:14→19:51)
[2016-04-19] MEDS: FOLIC ACID 1 MG TAB PO SCH (08:14)
[2016-04-19] MEDS: risperiDONE 0.5 MG TAB PO SCH ×2 (08:14→19:51)
[2016-04-19] MEDS: THIAMINE 100 MG TAB PO SCH (08:14)
[2016-04-19] MEDS: QUEtiapine FUMARATE 200 MG TAB PO SCH ×2 (08:14→19:51)
[2016-04-19] MEDS: MULTIVITAMINS/MINERALS THERAP 1 TAB PO SCH (08:14)
[2016-04-19] MEDS: ASPIRIN 81 MG ENTERIC TAB PO SCH (08:14)
[2016-04-19] MEDS: FUROSEMIDE 40 MG TAB PO SCH (08:15)
[2016-04-19] MEDS: DIVALPROEX 500MG *ER* TAB PO SCH (08:15)
[2016-04-19] MEDS: POTASSIUM CHLORIDE 10 MEQ SR TABLET PO SCH (08:15)
[2016-04-20 06:45] LABS: MEAN CORPUSCULAR HEMOGLOBIN 33.4 pg (27.0-33.0); MEAN CORPUSCULAR HGB CONC 32.3 g/dl (32.0-36.5); MEAN CORPUSCULAR VOLUME 103.4 fl (80.0-96.0); RED CELL DISTRIBUTION WIDTH 15.2 % (11.5-14.5); WHITE BLOOD COUNT 9.5 K/mm3 (4.0-10.0)
[2016-04-20 06:57] LABS: ANION GAP 6 MEQ/L (8-16); BLOOD UREA NITROGEN 11 MG/DL (7-18); CALCIUM LEVEL 8.7 MG/DL (8.8-10.2); CARBON DIOXIDE LEVEL 31 MEQ/L (21-32); CHLORIDE LEVEL 102 MEQ/L (98-107); GLOMERULAR FILTRATION RATE > 60.0 (>49); GLUCOSE, FASTING 91 MG/DL (80-110); SODIUM LEVEL 139 MEQ/L (136-145)
[2016-04-20 07:00] VITALS: BP 132/72
[2016-04-20] MEDS: QUEtiapine FUMARATE 200 MG TAB PO SCH ×2 (08:11→19:43)
[2016-04-20] MEDS: SENOKOT S TAB PO SCH ×2 (08:11→19:43)
[2016-04-20] MEDS: ASPIRIN 81 MG ENTERIC TAB PO SCH (08:11)
[2016-04-20] MEDS: COSOPT OCUMETER PLUS 10ML (DORZOLAMIDE/TIMOLOL) OU SCH ×2 (08:11→19:43)
[2016-04-20] MEDS: risperiDONE 0.5 MG TAB PO SCH ×2 (08:11→19:43)
[2016-04-20] MEDS: FOLIC ACID 1 MG TAB PO SCH (08:11)
[2016-04-20] MEDS: FUROSEMIDE 40 MG TAB PO SCH (08:12)
[2016-04-20] MEDS: MULTIVITAMINS/MINERALS THERAP 1 TAB PO SCH (08:12)
[2016-04-20] MEDS: POTASSIUM CHLORIDE 10 MEQ SR TABLET PO SCH (08:12)
[2016-04-20] MEDS: THIAMINE 100 MG TAB PO SCH (08:12)
[2016-04-20] MEDS: DIVALPROEX 500MG *ER* TAB PO SCH (08:13)
[2016-04-21 08:00] VITALS: BP 142/71
[2016-04-21] MEDS: QUEtiapine FUMARATE 200 MG TAB PO SCH ×2 (09:32→20:00)
[2016-04-21] MEDS: THIAMINE 100 MG TAB PO SCH (09:33)
[2016-04-21] MEDS: FUROSEMIDE 40 MG TAB PO SCH (09:33)
[2016-04-21] MEDS: DIVALPROEX 500MG *ER* TAB PO SCH (09:33)
[2016-04-21] MEDS: risperiDONE 0.5 MG TAB PO SCH ×2 (09:33→20:00)
[2016-04-21] MEDS: POTASSIUM CHLORIDE 10 MEQ SR TABLET PO SCH (09:33)
[2016-04-21] MEDS: ASPIRIN 81 MG ENTERIC TAB PO SCH (09:33)
[2016-04-21] MEDS: SENOKOT S TAB PO SCH ×2 (09:33→20:00)
[2016-04-21] MEDS: FOLIC ACID 1 MG TAB PO SCH (09:33)
[2016-04-21] MEDS: MULTIVITAMINS/MINERALS THERAP 1 TAB PO SCH (09:33)
[2016-04-21] MEDS: COSOPT OCUMETER PLUS 10ML (DORZOLAMIDE/TIMOLOL) OU SCH ×2 (09:34→20:00)
[2016-04-22 07:00] VITALS: BP 133/81
[2016-04-22] MEDS: MULTIVITAMINS/MINERALS THERAP 1 TAB PO SCH (08:53)
[2016-04-22] MEDS: COSOPT OCUMETER PLUS 10ML (DORZOLAMIDE/TIMOLOL) OU SCH ×2 (08:53→20:01)
[2016-04-22] MEDS: POTASSIUM CHLORIDE 10 MEQ SR TABLET PO SCH (08:53)
[2016-04-22] MEDS: DIVALPROEX 500MG *ER* TAB PO SCH (08:53)
[2016-04-22] MEDS: risperiDONE 0.5 MG TAB PO SCH ×2 (08:53→20:01)
[2016-04-22] MEDS: ASPIRIN 81 MG ENTERIC TAB PO SCH (08:54)
[2016-04-22] MEDS: FOLIC ACID 1 MG TAB PO SCH (08:54)
[2016-04-22] MEDS: THIAMINE 100 MG TAB PO SCH (08:54)
[2016-04-22] MEDS: SENOKOT S TAB PO SCH ×2 (08:54→20:01)
[2016-04-22] MEDS: QUEtiapine FUMARATE 200 MG TAB PO SCH ×2 (08:54→20:01)
[2016-04-22] MEDS: FUROSEMIDE 40 MG TAB PO SCH (08:54)
[2016-04-23 07:00] VITALS: BP 159/72
--- NOTE | 2016-04-23 08:28 | IPN ---
DATE: 04/22/2016 SUBJECTIVE: This is a 66-year-old male who was seen and examined at bedside. Since last visit, there has been no significant change. He denies any chest pain, shortness of breath, nausea or vomiting. He is ambulating in the hammer multiple times a day and declined pharmacological intervention for deep vein thrombosis (DVT) prophylaxis. OBJECTIVE: VITAL SIGNS: Blood pressure 133/81, heart rate 77, temperature 96.8, respiration rate 12, pulse oximetry 93% on room air. Intake and output documented 1680 and no output documented; however, he is on [facility] floor, 1 bowel movement documented this morning. GENERAL: Patient was lying in bed, comfortable, no acute distress. He is alert , awake, oriented times three, pleasant and cooperative. HEENT: Normocephalic, atraumatic. Moist oral mucosa. NECK: Supple. Trachea midline. CHEST: Symmetric chest rise, no accessory muscle use. Breath sounds clear to auscultation bilaterally. HEART: Regular rate and rhythm. S1, S2 present. ABDOMEN: Soft, nontender, nondistended. Bowel sounds present. No guarding. No rebound. EXTREMITIES: No pedal edema. Pedal pulses present bilaterally. There are onychomycoses changes to his toes. LABORATORY DATA: WBC from 04/20/2016 showed 9.54, hemoglobin 12.8, hematocrit 39.8 and platelets 169. Sodium 139, potassium 4, chloride 102, carbon dioxide 31, BUN 11, creatinine 0.7, glucose 91. IMPRESSION AND PLAN: Mr. Chavez is a 66-year-old male who presented with hepatic encephalopathy. 1. 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 Mentation continues to be back at his baseline. Continue home dose of Depakote 2000 mg by mouth daily. Continue folate and thiamine. 2. Hypertension. Blood pressure continues to be reasonable. Continue Lasix 40 mg daily. 3. Bipolar disorder. Continue Seroquel 200 mg by mouth twice a day and Risperdal 0.5 mg by mouth twice a day. 4. Hypokalemia secondary to diuretic use. Continue potassium supplementation. 5. Onychomycoses. There reportedly is a plan for outpatient followup with Dr. Gandara regarding this. 6. Deep venous thrombosis (DVT) prophylaxis. Sequential compression devices (SCDs) and thromboembolism deterrents (TEDs). Declined Lovenox or heparin as he has been fairly active and ambulating on the floor. 7. Disposition. At this time, it remains unclear when and where the patient will be discharged. I have both independently examined this patient as well as reviewed the dictated note. I have discussed in detail with the resident the findings and plan of treatment as documented in the residents note. I will continue to follow the patient and offer further guidance to the patients care as necessary during this hospital stay. SAAD
[2016-04-23] MEDS: MULTIVITAMINS/MINERALS THERAP 1 TAB PO SCH (08:41)
[2016-04-23] MEDS: DIVALPROEX 500MG *ER* TAB PO SCH (08:42)
[2016-04-23] MEDS: SENOKOT S TAB PO SCH ×2 (08:42→19:56)
[2016-04-23] MEDS: risperiDONE 0.5 MG TAB PO SCH ×2 (08:42→19:56)
[2016-04-23] MEDS: FOLIC ACID 1 MG TAB PO SCH (08:42)
[2016-04-23] MEDS: POTASSIUM CHLORIDE 10 MEQ SR TABLET PO SCH (08:42)
[2016-04-23] MEDS: THIAMINE 100 MG TAB PO SCH (08:42)
[2016-04-23] MEDS: QUEtiapine FUMARATE 200 MG TAB PO SCH ×2 (08:42→19:56)
[2016-04-23] MEDS: FUROSEMIDE 40 MG TAB PO SCH (08:42)
[2016-04-23] MEDS: ASPIRIN 81 MG ENTERIC TAB PO SCH (08:42)
[2016-04-23] MEDS: COSOPT OCUMETER PLUS 10ML (DORZOLAMIDE/TIMOLOL) OU SCH ×2 (08:46→19:56)
[2016-04-24 07:00] VITALS: BP 140/82
[2016-04-24] MEDS: THIAMINE 100 MG TAB PO SCH (08:21)
[2016-04-24] MEDS: FOLIC ACID 1 MG TAB PO SCH (08:21)
[2016-04-24] MEDS: risperiDONE 0.5 MG TAB PO SCH ×2 (08:21→19:50)
[2016-04-24] MEDS: MULTIVITAMINS/MINERALS THERAP 1 TAB PO SCH (08:21)
[2016-04-24] MEDS: QUEtiapine FUMARATE 200 MG TAB PO SCH ×2 (08:21→19:50)
[2016-04-24] MEDS: POTASSIUM CHLORIDE 10 MEQ SR TABLET PO SCH (08:21)
[2016-04-24] MEDS: COSOPT OCUMETER PLUS 10ML (DORZOLAMIDE/TIMOLOL) OU SCH ×2 (08:21→19:50)
[2016-04-24] MEDS: FUROSEMIDE 40 MG TAB PO SCH (08:21)
[2016-04-24] MEDS: ASPIRIN 81 MG ENTERIC TAB PO SCH (08:21)
[2016-04-24] MEDS: SENOKOT S TAB PO SCH ×2 (08:21→19:50)
[2016-04-24] MEDS: DIVALPROEX 500MG *ER* TAB PO SCH (08:22)
[2016-04-25 07:00] VITALS: BP 120/70
[2016-04-25] MEDS: COSOPT OCUMETER PLUS 10ML (DORZOLAMIDE/TIMOLOL) OU SCH ×2 (08:15→20:13)
[2016-04-25] MEDS: QUEtiapine FUMARATE 200 MG TAB PO SCH ×2 (08:15→20:13)
[2016-04-25] MEDS: THIAMINE 100 MG TAB PO SCH (08:16)
[2016-04-25] MEDS: MULTIVITAMINS/MINERALS THERAP 1 TAB PO SCH (08:16)
[2016-04-25] MEDS: SENOKOT S TAB PO SCH ×2 (08:16→20:14)
[2016-04-25] MEDS: FOLIC ACID 1 MG TAB PO SCH (08:16)
[2016-04-25] MEDS: risperiDONE 0.5 MG TAB PO SCH ×2 (08:16→20:14)
[2016-04-25] MEDS: ASPIRIN 81 MG ENTERIC TAB PO SCH (08:16)
[2016-04-25] MEDS: FUROSEMIDE 40 MG TAB PO SCH (08:16)
[2016-04-25] MEDS: POTASSIUM CHLORIDE 10 MEQ SR TABLET PO SCH (08:16)
[2016-04-25] MEDS: DIVALPROEX 500MG *ER* TAB PO SCH (08:16)
[2016-04-26 08:00] VITALS: BP 134/78
[2016-04-26] MEDS: THIAMINE 100 MG TAB PO SCH (08:10)
[2016-04-26] MEDS: COSOPT OCUMETER PLUS 10ML (DORZOLAMIDE/TIMOLOL) OU SCH ×2 (08:10→19:52)
[2016-04-26] MEDS: MULTIVITAMINS/MINERALS THERAP 1 TAB PO SCH (08:11)
[2016-04-26] MEDS: ASPIRIN 81 MG ENTERIC TAB PO SCH (08:11)
[2016-04-26] MEDS: QUEtiapine FUMARATE 200 MG TAB PO SCH ×2 (08:11→19:52)
[2016-04-26] MEDS: FOLIC ACID 1 MG TAB PO SCH (08:11)
[2016-04-26] MEDS: risperiDONE 0.5 MG TAB PO SCH ×2 (08:11→19:52)
[2016-04-26] MEDS: FUROSEMIDE 40 MG TAB PO SCH (08:11)
[2016-04-26] MEDS: POTASSIUM CHLORIDE 10 MEQ SR TABLET PO SCH (08:11)
[2016-04-26] MEDS: SENOKOT S TAB PO SCH ×2 (08:11→19:52)
[2016-04-26] MEDS: DIVALPROEX 500MG *ER* TAB PO SCH (08:11)
[2016-04-27 06:56] LABS: MEAN CORPUSCULAR HEMOGLOBIN 34.6 pg (27.0-33.0); MEAN CORPUSCULAR HGB CONC 34.2 g/dl (32.0-36.5); MEAN CORPUSCULAR VOLUME 101.1 fl (80.0-96.0); RED CELL DISTRIBUTION WIDTH 13.7 % (11.5-14.5); WHITE BLOOD COUNT 5.9 K/mm3 (4.0-10.0)
[2016-04-27 07:24] LABS: ANION GAP 6 MEQ/L (8-16); BLOOD UREA NITROGEN 8 MG/DL (7-18); CALCIUM LEVEL 8.5 MG/DL (8.8-10.2); CARBON DIOXIDE LEVEL 31 MEQ/L (21-32); CHLORIDE LEVEL 103 MEQ/L (98-107); CREATININE FOR GFR 0.72 MG/DL (0.70-1.30); GLOMERULAR FILTRATION RATE > 60.0 (>49); GLUCOSE, FASTING 92 MG/DL (80-110); POTASSIUM SERUM 4.2 MEQ/L (3.5-5.1); SODIUM LEVEL 140 MEQ/L (136-145)
[2016-04-27 08:00] VITALS: BP 129/69
[2016-04-27] MEDS: COSOPT OCUMETER PLUS 10ML (DORZOLAMIDE/TIMOLOL) OU SCH ×2 (08:44→20:25)
[2016-04-27] MEDS: MULTIVITAMINS/MINERALS THERAP 1 TAB PO SCH (08:45)
[2016-04-27] MEDS: DIVALPROEX 500MG *ER* TAB PO SCH (08:45)
[2016-04-27] MEDS: POTASSIUM CHLORIDE 10 MEQ SR TABLET PO SCH (08:45)
[2016-04-27] MEDS: ASPIRIN 81 MG ENTERIC TAB PO SCH (08:46)
[2016-04-27] MEDS: THIAMINE 100 MG TAB PO SCH (08:46)
[2016-04-27] MEDS: FUROSEMIDE 40 MG TAB PO SCH (08:46)
[2016-04-27] MEDS: risperiDONE 0.5 MG TAB PO SCH ×2 (08:46→20:25)
[2016-04-27] MEDS: FOLIC ACID 1 MG TAB PO SCH (08:46)
[2016-04-27] MEDS: QUEtiapine FUMARATE 200 MG TAB PO SCH ×2 (08:46→20:25)
[2016-04-27] MEDS: SENOKOT S TAB PO SCH ×2 (08:46→20:25)
[2016-04-28 07:00] VITALS: BP 131/78
[2016-04-28] MEDS: THIAMINE 100 MG TAB PO SCH (08:15)
[2016-04-28] MEDS: SENOKOT S TAB PO SCH ×2 (08:15→19:40)
[2016-04-28] MEDS: COSOPT OCUMETER PLUS 10ML (DORZOLAMIDE/TIMOLOL) OU SCH ×2 (08:15→19:40)
[2016-04-28] MEDS: MULTIVITAMINS/MINERALS THERAP 1 TAB PO SCH (08:15)
[2016-04-28] MEDS: risperiDONE 0.5 MG TAB PO SCH ×2 (08:15→19:40)
[2016-04-28] MEDS: QUEtiapine FUMARATE 200 MG TAB PO SCH ×2 (08:15→19:40)
[2016-04-28] MEDS: ASPIRIN 81 MG ENTERIC TAB PO SCH (08:15)
[2016-04-28] MEDS: FOLIC ACID 1 MG TAB PO SCH (08:15)
[2016-04-28] MEDS: FUROSEMIDE 40 MG TAB PO SCH (08:16)
[2016-04-28] MEDS: POTASSIUM CHLORIDE 10 MEQ SR TABLET PO SCH (08:16)
[2016-04-28] MEDS: DIVALPROEX 500MG *ER* TAB PO SCH (08:17)
--- NOTE | 2016-04-28 15:36 | IPNPDOC ---
Assessment/Plan Date Seen The patient was seen on 04/28/16. Plan / VTE VTE Prophylaxis Ordered?: Yes Plan Plan Text 1. 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 Patient with no acute change in mentation Continue home dose of Depakote 2000 mg by mouth daily. Continue folate and thiamine. 2. Hypertension. Continue Lasix 40mg daily. 3. Bipolar disorder. Continue Seroquel 200 mg ,Risperdal 0.5 mg 4. Hypokalemia secondary to diuretic use. Continue potassium supplementation. 5. Onychomycoses. Followup with Dr. Gandara as an outpatient 6. Deep venous thrombosis (DVT) prophylaxis. SCDs, TEDs Subjective CC/HPI The patient is a 66-year-old male admitted with a reason for visit of Encephalopathy. General: Denies: Chills, Night Sweats Constitutional: Denies: Chills, Fever Eyes: Denies: Pain ENT: Denies: Head Aches Skin: Denies: Lesions, Rash Pulmonary: Denies: Cough, Dyspnea Cardiovascular: Denies: Chest Pain, Palpitations Gastrointestinal: Denies: Nausea, Vomiting Genitourinary: Denies: Dysuria, Frequency Hematologic: Denies: Bleeding Excessively, Bruising Objective General Exam: : Alert: Cooperative: No Acute Distress Eye Exam: : EOMINo: Sclera icteric Neck Exam: : SuppleNo: JVD, thyromegaly Chest Exam: : Clear to auscultation: Normal air movement Heart Exam: : Normal S1: Normal S2: Rate Normal: Regular RhythmNo: Murmurs, Rubs Abdomen Exam: : Normal bowel sounds: SoftNo: Hepatospenomegaly, Tenderness Vital Signs I&O Vital Sign - Last 24 Hours 04/28/16 07:00 Temp 96.6 Pulse 81 Resp 16 B/P 131/78 Pulse Ox 93 O2 Delivery Room Air I&O- Last 24 Hours up to 6 AM 04/28/16 05:59 Intake Total 1920 ml Balance 1920 ml Medications Medications Current Medications Medications Dose Ordered Sig/Dimitry Route PRN Reason Start Time Stop Time Status Last Admin Dose Admin Acetaminophen 650 mg Q6HP PRN PO PAIN / FEVER 04/15/16 13:15 05/15/16 13:14 Aspirin 81 mg DAILY PO 01/24/16 09:00 05/20/16 08:59 04/28/16 08:15 81 MG Divalproex Sodium 2,000 mg DAILY PO 01/24/16 09:00 05/20/16 08:59 04/28/16 08:17 2,000 MG Dorzolamide/ Timolol 1 drop BID OU 01/24/16 09:00 05/20/16 08:59 04/28/16 08:15 1 DROP Folic Acid 1 mg DAILY PO 01/24/16 09:00 05/20/16 08:59 04/28/16 08:15 1 MG Furosemide 40 mg DAILY PO 01/29/16 09:00 05/25/16 08:59 04/28/16 08:16 40 MG Multivitamins 1 tab DAILY PO 01/24/16 09:00 05/20/16 08:59 04/28/16 08:15 1 TAB Ondansetron HCl 4 mg Q6HP PRN PO NAUSEA OR VOMITING 01/24/16 06:00 05/20/16 05:59 Potassium Chloride 20 meq DAILY PO 01/28/16 09:00 05/24/16 08:59 04/28/16 08:16 20 MEQ Quetiapine Fumarate 200 mg BID PO 01/24/16 09:00 05/20/16 08:59 04/28/16 08:15 200 MG Risperidone 0.5 mg BID PO 01/24/16 21:00 05/20/16 20:59 04/28/16 08:15 0.5 MG Senna/Docusate Sodium 1 tab BID PO 01/29/16 09:00 05/25/16 08:59 04/28/16 08:15 1 TAB Thiamine HCl 100 mg DAILY PO 01/24/16 09:00 05/20/16 08:59 04/28/16 08:15 100 MG Allergies Coded Allergies: Codeine (Unverified Adverse Reaction, Mild, RESTLESSNESS, 11/11/15) TYSON HOANG MD Apr 28, 2016 15:36
[2016-04-29 07:00] VITALS: BP 122/65
[2016-04-29] MEDS: MULTIVITAMINS/MINERALS THERAP 1 TAB PO SCH (08:21)
[2016-04-29] MEDS: ASPIRIN 81 MG ENTERIC TAB PO SCH (08:21)
[2016-04-29] MEDS: FOLIC ACID 1 MG TAB PO SCH (08:21)
[2016-04-29] MEDS: QUEtiapine FUMARATE 200 MG TAB PO SCH ×2 (08:21→20:02)
[2016-04-29] MEDS: FUROSEMIDE 40 MG TAB PO SCH (08:21)
[2016-04-29] MEDS: SENOKOT S TAB PO SCH ×2 (08:21→20:02)
[2016-04-29] MEDS: COSOPT OCUMETER PLUS 10ML (DORZOLAMIDE/TIMOLOL) OU SCH ×2 (08:21→20:02)
[2016-04-29] MEDS: POTASSIUM CHLORIDE 10 MEQ SR TABLET PO SCH (08:21)
[2016-04-29] MEDS: risperiDONE 0.5 MG TAB PO SCH ×2 (08:21→20:02)
[2016-04-29] MEDS: THIAMINE 100 MG TAB PO SCH (08:21)
[2016-04-29] MEDS: DIVALPROEX 500MG *ER* TAB PO SCH (08:22)
[2016-04-30 07:00] VITALS: BP 147/83
[2016-04-30] MEDS: THIAMINE 100 MG TAB PO SCH (08:56)
[2016-04-30] MEDS: COSOPT OCUMETER PLUS 10ML (DORZOLAMIDE/TIMOLOL) OU SCH ×2 (08:56→20:22)
[2016-04-30] MEDS: MULTIVITAMINS/MINERALS THERAP 1 TAB PO SCH (08:56)
[2016-04-30] MEDS: risperiDONE 0.5 MG TAB PO SCH ×2 (08:56→20:22)
[2016-04-30] MEDS: FUROSEMIDE 40 MG TAB PO SCH (08:56)
[2016-04-30] MEDS: QUEtiapine FUMARATE 200 MG TAB PO SCH ×2 (08:56→20:22)
[2016-04-30] MEDS: FOLIC ACID 1 MG TAB PO SCH (08:56)
[2016-04-30] MEDS: ASPIRIN 81 MG ENTERIC TAB PO SCH (08:56)
[2016-04-30] MEDS: SENOKOT S TAB PO SCH ×2 (08:56→20:22)
[2016-04-30] MEDS: POTASSIUM CHLORIDE 10 MEQ SR TABLET PO SCH (08:57)
[2016-04-30] MEDS: DIVALPROEX 500MG *ER* TAB PO SCH (08:57)
[2016-05-01 07:00] VITALS: BP 130/74
[2016-05-01] MEDS: COSOPT OCUMETER PLUS 10ML (DORZOLAMIDE/TIMOLOL) OU SCH ×2 (08:53→20:10)
[2016-05-01] MEDS: POTASSIUM CHLORIDE 10 MEQ SR TABLET PO SCH (08:54)
[2016-05-01] MEDS: DIVALPROEX 500MG *ER* TAB PO SCH (08:54)
[2016-05-01] MEDS: SENOKOT S TAB PO SCH ×2 (08:54→20:10)
[2016-05-01] MEDS: FOLIC ACID 1 MG TAB PO SCH (08:54)
[2016-05-01] MEDS: ASPIRIN 81 MG ENTERIC TAB PO SCH (08:54)
[2016-05-01] MEDS: QUEtiapine FUMARATE 200 MG TAB PO SCH ×2 (08:54→20:10)
[2016-05-01] MEDS: risperiDONE 0.5 MG TAB PO SCH ×2 (08:54→20:10)
[2016-05-01] MEDS: THIAMINE 100 MG TAB PO SCH (08:54)
[2016-05-01] MEDS: MULTIVITAMINS/MINERALS THERAP 1 TAB PO SCH (08:54)
[2016-05-01] MEDS: FUROSEMIDE 40 MG TAB PO SCH (08:54)
[2016-05-02 07:00] VITALS: BP 124/72
[2016-05-02 08:11] VITALS: BP 134/82
[2016-05-02] MEDS: ASPIRIN 81 MG ENTERIC TAB PO SCH (09:34)
[2016-05-02] MEDS: DIVALPROEX 500MG *ER* TAB PO SCH (09:34)
[2016-05-02] MEDS: QUEtiapine FUMARATE 200 MG TAB PO SCH ×2 (09:34→20:34)
[2016-05-02] MEDS: FOLIC ACID 1 MG TAB PO SCH (09:35)
[2016-05-02] MEDS: risperiDONE 0.5 MG TAB PO SCH ×2 (09:35→20:34)
[2016-05-02] MEDS: THIAMINE 100 MG TAB PO SCH (09:35)
[2016-05-02] MEDS: SENOKOT S TAB PO SCH ×2 (09:35→20:34)
[2016-05-02] MEDS: MULTIVITAMINS/MINERALS THERAP 1 TAB PO SCH (09:35)
[2016-05-02] MEDS: POTASSIUM CHLORIDE 10 MEQ SR TABLET PO SCH (09:35)
[2016-05-02] MEDS: FUROSEMIDE 40 MG TAB PO SCH (09:35)
[2016-05-02] MEDS: COSOPT OCUMETER PLUS 10ML (DORZOLAMIDE/TIMOLOL) OU SCH ×2 (09:37→20:34)
[2016-05-03 07:00] VITALS: BP 143/76
[2016-05-03 08:43] VITALS: BP 131/66
[2016-05-03] MEDS: POTASSIUM CHLORIDE 10 MEQ SR TABLET PO SCH (09:37)
[2016-05-03] MEDS: DIVALPROEX 500MG *ER* TAB PO SCH (09:38)
[2016-05-03] MEDS: SENOKOT S TAB PO SCH ×2 (09:39→20:11)
[2016-05-03] MEDS: risperiDONE 0.5 MG TAB PO SCH ×2 (09:39→20:11)
[2016-05-03] MEDS: QUEtiapine FUMARATE 200 MG TAB PO SCH ×2 (09:39→20:11)
[2016-05-03] MEDS: ASPIRIN 81 MG ENTERIC TAB PO SCH (09:39)
[2016-05-03] MEDS: THIAMINE 100 MG TAB PO SCH (09:39)
[2016-05-03] MEDS: FUROSEMIDE 40 MG TAB PO SCH (09:39)
[2016-05-03] MEDS: COSOPT OCUMETER PLUS 10ML (DORZOLAMIDE/TIMOLOL) OU SCH ×2 (09:40→20:11)
[2016-05-03] MEDS: MULTIVITAMINS/MINERALS THERAP 1 TAB PO SCH (09:40)
[2016-05-03] MEDS: FOLIC ACID 1 MG TAB PO SCH (09:40)
--- NOTE | 2016-05-03 16:51 | IPN ---
DATE: 05/03/2016 A 66-year-old gentleman seen at bedside resting comfortably. No overnight issues reported. He did go to podiatry earlier today and no specific complaints were noted. Mental health is to take a look at him tomorrow morning according to nursing. OBJECTIVE: VITAL SIGNS: Temperature is 97.7, pulse 79, respiratory rate 18, blood pressure 131/66, SPO2 is 93% on room air. GENERAL: The patient appears to be in no acute distress. He is alert and oriented. HEENT: Unremarkable. LUNGS: Clear. HEART: Regular rate and rhythm. ABDOMEN: Soft. EXTREMITIES: No edema. No calf tenderness. ASSESSMENT AND PLAN: 1. 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 He appears to be at his baseline. Continue Depakote, folic acid, and thiamine. 2. Hypertension, stable on Lasix. 3. Bipolar disorder. Continue on Seroquel and Risperdal. 4. Hypokalemia, secondary to diuretic use. Continue with potassium supplementation. 5. Onychomycosis. He saw Dr. Gandara today. Appreciate his followup as an outpatient. 6. Deep vein thrombosis (DVT) prophylaxis. Thromboembolic-deterrent stockings (TEDS) and sequentials. DISPOSITION: Anticipate placement.
[2016-05-04 07:22] LABS: MEAN CORPUSCULAR HEMOGLOBIN 34.2 pg (27.0-33.0); MEAN CORPUSCULAR VOLUME 100.4 fl (80.0-96.0); RED CELL DISTRIBUTION WIDTH 14.7 % (11.5-14.5); WHITE BLOOD COUNT 5.8 K/mm3 (4.0-10.0)
[2016-05-04 07:41] LABS: ANION GAP 8 MEQ/L (8-16); BLOOD UREA NITROGEN 11 MG/DL (7-18); CALCIUM LEVEL 8.8 MG/DL (8.8-10.2); CARBON DIOXIDE LEVEL 28 MEQ/L (21-32); CHLORIDE LEVEL 99 MEQ/L (98-107); CREATININE FOR GFR 0.64 MG/DL (0.70-1.30); GLOMERULAR FILTRATION RATE > 60.0 (>49); GLUCOSE, FASTING 85 MG/DL (80-110); POTASSIUM SERUM 3.8 MEQ/L (3.5-5.1); SODIUM LEVEL 135 MEQ/L (136-145)
[2016-05-04] MEDS: COSOPT OCUMETER PLUS 10ML (DORZOLAMIDE/TIMOLOL) OU SCH ×2 (07:58→19:52)
[2016-05-04] MEDS: ASPIRIN 81 MG ENTERIC TAB PO SCH (07:58)
[2016-05-04] MEDS: risperiDONE 0.5 MG TAB PO SCH ×2 (07:58→19:52)
[2016-05-04] MEDS: MULTIVITAMINS/MINERALS THERAP 1 TAB PO SCH (07:58)
[2016-05-04] MEDS: SENOKOT S TAB PO SCH ×2 (07:58→19:52)
[2016-05-04] MEDS: THIAMINE 100 MG TAB PO SCH (07:58)
[2016-05-04] MEDS: FOLIC ACID 1 MG TAB PO SCH (07:58)
[2016-05-04] MEDS: QUEtiapine FUMARATE 200 MG TAB PO SCH ×2 (07:58→19:52)
[2016-05-04] MEDS: POTASSIUM CHLORIDE 10 MEQ SR TABLET PO SCH (07:59)
[2016-05-04] MEDS: DIVALPROEX 500MG *ER* TAB PO SCH (07:59)
[2016-05-04] MEDS: FUROSEMIDE 40 MG TAB PO SCH (07:59)
[2016-05-04 08:00] VITALS: BP_SYST 140; BP_SYST 152; BP_DIAS 68; BP_DIAS 84
[2016-05-05 07:00] VITALS: BP 146/72
[2016-05-05] MEDS: risperiDONE 0.5 MG TAB PO SCH ×2 (08:25→19:48)
[2016-05-05] MEDS: MULTIVITAMINS/MINERALS THERAP 1 TAB PO SCH (08:25)
[2016-05-05] MEDS: THIAMINE 100 MG TAB PO SCH (08:25)
[2016-05-05] MEDS: QUEtiapine FUMARATE 200 MG TAB PO SCH ×2 (08:25→19:48)
[2016-05-05] MEDS: FUROSEMIDE 40 MG TAB PO SCH (08:26)
[2016-05-05] MEDS: POTASSIUM CHLORIDE 10 MEQ SR TABLET PO SCH (08:26)
[2016-05-05] MEDS: ASPIRIN 81 MG ENTERIC TAB PO SCH (08:26)
[2016-05-05] MEDS: FOLIC ACID 1 MG TAB PO SCH (08:26)
[2016-05-05] MEDS: SENOKOT S TAB PO SCH ×2 (08:26→19:48)
[2016-05-05] MEDS: DIVALPROEX 500MG *ER* TAB PO SCH (08:27)
[2016-05-05] MEDS: COSOPT OCUMETER PLUS 10ML (DORZOLAMIDE/TIMOLOL) OU SCH ×2 (08:27→19:48)
[2016-05-06 07:00] VITALS: BP 157/77
[2016-05-06] MEDS: risperiDONE 0.5 MG TAB PO SCH ×2 (08:40→19:32)
[2016-05-06] MEDS: POTASSIUM CHLORIDE 10 MEQ SR TABLET PO SCH (08:40)
[2016-05-06] MEDS: DIVALPROEX 500MG *ER* TAB PO SCH (08:40)
[2016-05-06] MEDS: MULTIVITAMINS/MINERALS THERAP 1 TAB PO SCH (08:40)
[2016-05-06] MEDS: THIAMINE 100 MG TAB PO SCH (08:41)
[2016-05-06] MEDS: FOLIC ACID 1 MG TAB PO SCH (08:41)
[2016-05-06] MEDS: ASPIRIN 81 MG ENTERIC TAB PO SCH (08:42)
[2016-05-06] MEDS: QUEtiapine FUMARATE 200 MG TAB PO SCH ×2 (08:42→19:32)
[2016-05-06] MEDS: SENOKOT S TAB PO SCH ×2 (08:42→19:32)
[2016-05-06] MEDS: FUROSEMIDE 40 MG TAB PO SCH (08:42)
[2016-05-06] MEDS: COSOPT OCUMETER PLUS 10ML (DORZOLAMIDE/TIMOLOL) OU SCH ×2 (08:43→19:32)
[2016-05-07 07:00] VITALS: BP 132/77
[2016-05-07] MEDS: FOLIC ACID 1 MG TAB PO SCH (09:21)
[2016-05-07] MEDS: MULTIVITAMINS/MINERALS THERAP 1 TAB PO SCH (09:21)
[2016-05-07] MEDS: SENOKOT S TAB PO SCH ×2 (09:21→20:05)
[2016-05-07] MEDS: QUEtiapine FUMARATE 200 MG TAB PO SCH ×2 (09:21→20:05)
[2016-05-07] MEDS: ASPIRIN 81 MG ENTERIC TAB PO SCH (09:21)
[2016-05-07] MEDS: COSOPT OCUMETER PLUS 10ML (DORZOLAMIDE/TIMOLOL) OU SCH ×2 (09:21→20:06)
[2016-05-07] MEDS: FUROSEMIDE 40 MG TAB PO SCH (09:22)
[2016-05-07] MEDS: POTASSIUM CHLORIDE 10 MEQ SR TABLET PO SCH (09:22)
[2016-05-07] MEDS: DIVALPROEX 500MG *ER* TAB PO SCH (09:22)
[2016-05-07] MEDS: THIAMINE 100 MG TAB PO SCH (09:22)
[2016-05-07] MEDS: risperiDONE 0.5 MG TAB PO SCH ×2 (09:22→20:05)
[2016-05-08 07:00] VITALS: BP 166/87
[2016-05-08] MEDS: ASPIRIN 81 MG ENTERIC TAB PO SCH (08:20)
[2016-05-08] MEDS: QUEtiapine FUMARATE 200 MG TAB PO SCH ×2 (08:20→20:09)
[2016-05-08] MEDS: risperiDONE 0.5 MG TAB PO SCH ×2 (08:20→20:09)
[2016-05-08] MEDS: MULTIVITAMINS/MINERALS THERAP 1 TAB PO SCH (08:20)
[2016-05-08] MEDS: COSOPT OCUMETER PLUS 10ML (DORZOLAMIDE/TIMOLOL) OU SCH ×2 (08:20→20:09)
[2016-05-08] MEDS: FOLIC ACID 1 MG TAB PO SCH (08:20)
[2016-05-08] MEDS: THIAMINE 100 MG TAB PO SCH (08:20)
[2016-05-08] MEDS: SENOKOT S TAB PO SCH ×2 (08:20→20:09)
[2016-05-08] MEDS: DIVALPROEX 500MG *ER* TAB PO SCH (08:21)
[2016-05-08] MEDS: POTASSIUM CHLORIDE 10 MEQ SR TABLET PO SCH (08:21)
[2016-05-08] MEDS: FUROSEMIDE 40 MG TAB PO SCH (08:21)
[2016-05-08] MEDS: ACETAMINOPHEN TAB 650MG DOSE (2X325MG) PO PRN ×2 (15:56→20:09)
[2016-05-09 07:00] VITALS: BP 142/70
[2016-05-09] MEDS: MULTIVITAMINS/MINERALS THERAP 1 TAB PO SCH (08:51)
[2016-05-09] MEDS: risperiDONE 0.5 MG TAB PO SCH ×2 (08:51→19:57)
[2016-05-09] MEDS: THIAMINE 100 MG TAB PO SCH (08:51)
[2016-05-09] MEDS: QUEtiapine FUMARATE 200 MG TAB PO SCH ×2 (08:51→19:57)
[2016-05-09] MEDS: COSOPT OCUMETER PLUS 10ML (DORZOLAMIDE/TIMOLOL) OU SCH ×2 (08:51→19:57)
[2016-05-09] MEDS: FUROSEMIDE 40 MG TAB PO SCH (08:52)
[2016-05-09] MEDS: ASPIRIN 81 MG ENTERIC TAB PO SCH (08:52)
[2016-05-09] MEDS: FOLIC ACID 1 MG TAB PO SCH (08:52)
[2016-05-09] MEDS: POTASSIUM CHLORIDE 10 MEQ SR TABLET PO SCH (08:52)
[2016-05-09] MEDS: SENOKOT S TAB PO SCH ×2 (08:52→19:57)
[2016-05-09] MEDS: DIVALPROEX 500MG *ER* TAB PO SCH (08:53)
[2016-05-10 07:00] VITALS: BP 127/71
[2016-05-10] MEDS: COSOPT OCUMETER PLUS 10ML (DORZOLAMIDE/TIMOLOL) OU SCH ×2 (08:10→19:52)
[2016-05-10] MEDS: FOLIC ACID 1 MG TAB PO SCH (08:10)
[2016-05-10] MEDS: QUEtiapine FUMARATE 200 MG TAB PO SCH ×2 (08:10→19:52)
[2016-05-10] MEDS: POTASSIUM CHLORIDE 10 MEQ SR TABLET PO SCH (08:11)
[2016-05-10] MEDS: ASPIRIN 81 MG ENTERIC TAB PO SCH (08:11)
[2016-05-10] MEDS: risperiDONE 0.5 MG TAB PO SCH ×2 (08:11→19:52)
[2016-05-10] MEDS: SENOKOT S TAB PO SCH ×2 (08:11→19:52)
[2016-05-10] MEDS: FUROSEMIDE 40 MG TAB PO SCH (08:11)
[2016-05-10] MEDS: THIAMINE 100 MG TAB PO SCH (08:11)
[2016-05-10] MEDS: MULTIVITAMINS/MINERALS THERAP 1 TAB PO SCH (08:11)
[2016-05-10] MEDS: DIVALPROEX 500MG *ER* TAB PO SCH (08:12)
--- NOTE | 2016-05-10 20:00 | IPNPDOC ---
Assessment/Plan Date Seen The patient was seen on 05/10/16. Plan / VTE VTE Prophylaxis Ordered?: Yes Plan Plan Text 1. 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 Patient with no acute change in mentation Continue home dose of Depakote 2000 mg by mouth daily. Continue folate and thiamine. 2. Hypertension. Continue Lasix 40mg daily. 3. Bipolar disorder. Continue Seroquel 200 mg BID, Risperdal 0.5 mg BID 4. Hypokalemia secondary to diuretic use. Continue potassium supplementation. 5. Onychomycoses. Followup with Dr. Gandara as an outpatient 6. Deep venous thrombosis (DVT) prophylaxis. SCDs, TEDs Subjective CC/HPI The patient is a 66-year-old male admitted with a reason for visit of Encephalopathy. General: Denies: Chills, Fatigue, Malaise, Night Sweats, Normal Appetite, ROS Unobtainable Constitutional: Denies: Chills, Fatigue, Fever, Lethargy, Malaise, Night Sweats , Other, Weakness, Weight Loss Eyes: Denies: Conjunctivae inflammation, Eyelid inflammation, Other, Pain, Redness, Vision change ENT: Denies: Dysphagia, Ear Pain, Epistaxis, Head Aches, Other Symptoms, Post Nasal Drip, Sinus Congestion, Sore Throat Skin: Denies: Breakdown, Bruising, Dry, Itching, Jaundice, Lesions, Nail Changes, Other, Rash Pulmonary: Denies: Cough, Dyspnea, Other Symptoms, Pleuritic Chest Pain Cardiovascular: Denies: Chest Pain, Edema, Lt Headedness, Orthopnea, Other Symptoms, Palpitations, Paroxysmal Noc. Dyspnea Gastrointestinal: Denies: Abdominal Pain, Constipation, Diarrhea, Hematochezia , Melena, Nausea, Other Symptoms, Vomiting Genitourinary: Denies: Dysuria, Frequency, Hematuria, Incontinence, Other Symptoms, Retention Objective Physical Examination General Exam: : Alert: Cooperative: No Acute Distress Eye Exam: Positive: EOMI, Negative: Sclera icteric Neck Exam: Positive: Supple, Negative: JVD, thyromegaly Chest Exam: Positive: Clear to auscultation, Normal air movement Heart Exam: Positive: Normal S1, Normal S2, Rate Normal, Regular Rhythm, Negative: Murmurs, Rubs Abdomen Exam: Positive: Normal bowel sounds, Soft, Negative: Hepatospenomegaly, Tenderness Vital Signs/I&O Vital Signs Date Time Temp Pulse Resp B/P Pulse Ox O2 Delivery O2 Flow Rate FiO2 05/10/16 07:00 95.5 76 16 127/71 95 Room Air I&O- Last 24 Hours up to 6 AM 05/10/16 06:00 Intake Total 2220 ml Balance 2220 ml TYSON HOANG MD May 10, 2016 20:00
[2016-05-11 07:00] VITALS: BP 127/86
[2016-05-11 07:01] LABS: MEAN CORPUSCULAR HGB CONC 33.9 g/dl (32.0-36.5); MEAN CORPUSCULAR VOLUME 100.5 fl (80.0-96.0); RED CELL DISTRIBUTION WIDTH 13.4 % (11.5-14.5); WHITE BLOOD COUNT 6.2 K/mm3 (4.0-10.0)
[2016-05-11 07:06] LABS: ANION GAP 8 MEQ/L (8-16); BLOOD UREA NITROGEN 11 MG/DL (7-18); CARBON DIOXIDE LEVEL 29 MEQ/L (21-32); CHLORIDE LEVEL 104 MEQ/L (98-107); CREATININE FOR GFR 0.69 MG/DL (0.70-1.30); GLOMERULAR FILTRATION RATE > 60.0 (>49); GLUCOSE, FASTING 88 MG/DL (80-110); SODIUM LEVEL 141 MEQ/L (136-145)
[2016-05-11] MEDS: risperiDONE 0.5 MG TAB PO SCH ×2 (08:27→19:41)
[2016-05-11] MEDS: QUEtiapine FUMARATE 200 MG TAB PO SCH ×2 (08:27→19:41)
[2016-05-11] MEDS: POTASSIUM CHLORIDE 10 MEQ SR TABLET PO SCH (08:27)
[2016-05-11] MEDS: DIVALPROEX 500MG *ER* TAB PO SCH (08:27)
[2016-05-11] MEDS: MULTIVITAMINS/MINERALS THERAP 1 TAB PO SCH (08:27)
[2016-05-11] MEDS: COSOPT OCUMETER PLUS 10ML (DORZOLAMIDE/TIMOLOL) OU SCH ×2 (08:27→19:41)
[2016-05-11] MEDS: SENOKOT S TAB PO SCH ×2 (08:28→19:41)
[2016-05-11] MEDS: ASPIRIN 81 MG ENTERIC TAB PO SCH (08:28)
[2016-05-11] MEDS: FOLIC ACID 1 MG TAB PO SCH (08:28)
[2016-05-11] MEDS: FUROSEMIDE 40 MG TAB PO SCH (08:28)
[2016-05-11] MEDS: THIAMINE 100 MG TAB PO SCH (08:28)
[2016-05-12 08:02] VITALS: BP 130/78
[2016-05-12] MEDS: FUROSEMIDE 40 MG TAB PO SCH (08:16)
[2016-05-12] MEDS: MULTIVITAMINS/MINERALS THERAP 1 TAB PO SCH (08:16)
[2016-05-12] MEDS: POTASSIUM CHLORIDE 10 MEQ SR TABLET PO SCH (08:16)
[2016-05-12] MEDS: COSOPT OCUMETER PLUS 10ML (DORZOLAMIDE/TIMOLOL) OU SCH ×2 (08:16→19:42)
[2016-05-12] MEDS: QUEtiapine FUMARATE 200 MG TAB PO SCH ×2 (08:16→19:42)
[2016-05-12] MEDS: ASPIRIN 81 MG ENTERIC TAB PO SCH (08:16)
[2016-05-12] MEDS: FOLIC ACID 1 MG TAB PO SCH (08:16)
[2016-05-12] MEDS: THIAMINE 100 MG TAB PO SCH (08:16)
[2016-05-12] MEDS: DIVALPROEX 500MG *ER* TAB PO SCH (08:16)
[2016-05-12] MEDS: risperiDONE 0.5 MG TAB PO SCH ×2 (08:16→19:42)
[2016-05-12] MEDS: SENOKOT S TAB PO SCH ×2 (08:16→19:42)
[2016-05-13 07:00] VITALS: BP 166/97
[2016-05-13] MEDS: ASPIRIN 81 MG ENTERIC TAB PO SCH (08:04)
[2016-05-13] MEDS: MULTIVITAMINS/MINERALS THERAP 1 TAB PO SCH (08:04)
[2016-05-13] MEDS: risperiDONE 0.5 MG TAB PO SCH ×2 (08:04→19:51)
[2016-05-13] MEDS: FOLIC ACID 1 MG TAB PO SCH (08:04)
[2016-05-13] MEDS: QUEtiapine FUMARATE 200 MG TAB PO SCH ×2 (08:04→19:51)
[2016-05-13] MEDS: COSOPT OCUMETER PLUS 10ML (DORZOLAMIDE/TIMOLOL) OU SCH ×2 (08:04→19:51)
[2016-05-13] MEDS: SENOKOT S TAB PO SCH ×2 (08:04→19:51)
[2016-05-13] MEDS: FUROSEMIDE 40 MG TAB PO SCH (08:04)
[2016-05-13] MEDS: THIAMINE 100 MG TAB PO SCH (08:04)
[2016-05-13] MEDS: DIVALPROEX 500MG *ER* TAB PO SCH (08:05)
[2016-05-13] MEDS: POTASSIUM CHLORIDE 10 MEQ SR TABLET PO SCH (08:05)
[2016-05-13 10:59] VITALS: BP 112/67
[2016-05-14 07:00] VITALS: BP 123/79
[2016-05-14] MEDS: MULTIVITAMINS/MINERALS THERAP 1 TAB PO SCH (08:11)
[2016-05-14] MEDS: FOLIC ACID 1 MG TAB PO SCH (08:11)
[2016-05-14] MEDS: COSOPT OCUMETER PLUS 10ML (DORZOLAMIDE/TIMOLOL) OU SCH ×2 (08:11→19:41)
[2016-05-14] MEDS: QUEtiapine FUMARATE 200 MG TAB PO SCH ×2 (08:11→19:41)
[2016-05-14] MEDS: FUROSEMIDE 40 MG TAB PO SCH (08:11)
[2016-05-14] MEDS: THIAMINE 100 MG TAB PO SCH (08:11)
[2016-05-14] MEDS: POTASSIUM CHLORIDE 10 MEQ SR TABLET PO SCH (08:11)
[2016-05-14] MEDS: risperiDONE 0.5 MG TAB PO SCH ×2 (08:11→19:41)
[2016-05-14] MEDS: ASPIRIN 81 MG ENTERIC TAB PO SCH (08:11)
[2016-05-14] MEDS: SENOKOT S TAB PO SCH ×2 (08:11→19:41)
[2016-05-14] MEDS: DIVALPROEX 500MG *ER* TAB PO SCH (08:12)
[2016-05-15] MEDS: THIAMINE 100 MG TAB PO SCH (09:10)
[2016-05-15] MEDS: FUROSEMIDE 40 MG TAB PO SCH (09:10)
[2016-05-15] MEDS: FOLIC ACID 1 MG TAB PO SCH (09:10)
[2016-05-15] MEDS: DIVALPROEX 500MG *ER* TAB PO SCH (09:10)
[2016-05-15] MEDS: SENOKOT S TAB PO SCH ×2 (09:10→20:07)
[2016-05-15] MEDS: ASPIRIN 81 MG ENTERIC TAB PO SCH (09:10)
[2016-05-15] MEDS: MULTIVITAMINS/MINERALS THERAP 1 TAB PO SCH (09:10)
[2016-05-15] MEDS: COSOPT OCUMETER PLUS 10ML (DORZOLAMIDE/TIMOLOL) OU SCH ×2 (09:11→20:07)
[2016-05-15] MEDS: POTASSIUM CHLORIDE 10 MEQ SR TABLET PO SCH (09:11)
[2016-05-15] MEDS: QUEtiapine FUMARATE 200 MG TAB PO SCH ×2 (09:11→20:07)
[2016-05-15] MEDS: risperiDONE 0.5 MG TAB PO SCH ×2 (09:13→20:07)
[2016-05-16 07:00] VITALS: BP 131/73
[2016-05-16] MEDS: COSOPT OCUMETER PLUS 10ML (DORZOLAMIDE/TIMOLOL) OU SCH ×2 (09:44→20:08)
[2016-05-16] MEDS: DIVALPROEX 500MG *ER* TAB PO SCH (09:44)
[2016-05-16] MEDS: QUEtiapine FUMARATE 200 MG TAB PO SCH ×2 (09:44→20:08)
[2016-05-16] MEDS: POTASSIUM CHLORIDE 10 MEQ SR TABLET PO SCH (09:44)
[2016-05-16] MEDS: MULTIVITAMINS/MINERALS THERAP 1 TAB PO SCH (09:45)
[2016-05-16] MEDS: SENOKOT S TAB PO SCH ×2 (09:45→20:08)
[2016-05-16] MEDS: THIAMINE 100 MG TAB PO SCH (09:45)
[2016-05-16] MEDS: FUROSEMIDE 40 MG TAB PO SCH (09:45)
[2016-05-16] MEDS: risperiDONE 0.5 MG TAB PO SCH ×2 (09:45→20:07)
[2016-05-16] MEDS: FOLIC ACID 1 MG TAB PO SCH (09:45)
[2016-05-16] MEDS: ASPIRIN 81 MG ENTERIC TAB PO SCH (09:45)
[2016-05-17 07:00] VITALS: BP 137/71
[2016-05-17] MEDS: QUEtiapine FUMARATE 200 MG TAB PO SCH ×2 (09:07→19:49)
[2016-05-17] MEDS: FUROSEMIDE 40 MG TAB PO SCH (09:07)
[2016-05-17] MEDS: THIAMINE 100 MG TAB PO SCH (09:07)
[2016-05-17] MEDS: POTASSIUM CHLORIDE 10 MEQ SR TABLET PO SCH (09:07)
[2016-05-17] MEDS: COSOPT OCUMETER PLUS 10ML (DORZOLAMIDE/TIMOLOL) OU SCH ×2 (09:07→19:51)
[2016-05-17] MEDS: ASPIRIN 81 MG ENTERIC TAB PO SCH (09:07)
[2016-05-17] MEDS: MULTIVITAMINS/MINERALS THERAP 1 TAB PO SCH (09:07)
[2016-05-17] MEDS: SENOKOT S TAB PO SCH ×2 (09:07→19:49)
[2016-05-17] MEDS: FOLIC ACID 1 MG TAB PO SCH (09:07)
[2016-05-17] MEDS: risperiDONE 0.5 MG TAB PO SCH ×2 (09:07→19:49)
[2016-05-17] MEDS: DIVALPROEX 500MG *ER* TAB PO SCH (09:08)
[2016-05-18 07:07] LABS: MEAN CORPUSCULAR HEMOGLOBIN 34.2 pg (27.0-33.0); MEAN CORPUSCULAR HGB CONC 33.7 g/dl (32.0-36.5); MEAN CORPUSCULAR VOLUME 101.4 fl (80.0-96.0); RED CELL DISTRIBUTION WIDTH 12.8 % (11.5-14.5); WHITE BLOOD COUNT 5.9 K/mm3 (4.0-10.0)
[2016-05-18 07:31] LABS: ANION GAP 10 MEQ/L (8-16); BLOOD UREA NITROGEN 14 MG/DL (7-18); CALCIUM LEVEL 9.2 MG/DL (8.8-10.2); CARBON DIOXIDE LEVEL 27 MEQ/L (21-32); CHLORIDE LEVEL 104 MEQ/L (98-107); CREATININE FOR GFR 0.71 MG/DL (0.70-1.30); GLOMERULAR FILTRATION RATE > 60.0 (>49); GLUCOSE, FASTING 91 MG/DL (80-110); SODIUM LEVEL 141 MEQ/L (136-145)
[2016-05-18 08:00] VITALS: BP 137/81
[2016-05-18] MEDS: ASPIRIN 81 MG ENTERIC TAB PO SCH (08:05)
[2016-05-18] MEDS: THIAMINE 100 MG TAB PO SCH (08:05)
[2016-05-18] MEDS: risperiDONE 0.5 MG TAB PO SCH ×2 (08:05→19:40)
[2016-05-18] MEDS: COSOPT OCUMETER PLUS 10ML (DORZOLAMIDE/TIMOLOL) OU SCH ×2 (08:05→19:40)
[2016-05-18] MEDS: SENOKOT S TAB PO SCH ×2 (08:05→19:40)
[2016-05-18] MEDS: QUEtiapine FUMARATE 200 MG TAB PO SCH ×2 (08:05→19:40)
[2016-05-18] MEDS: FUROSEMIDE 40 MG TAB PO SCH (08:05)
[2016-05-18] MEDS: MULTIVITAMINS/MINERALS THERAP 1 TAB PO SCH (08:05)
[2016-05-18] MEDS: FOLIC ACID 1 MG TAB PO SCH (08:05)
[2016-05-18] MEDS: DIVALPROEX 500MG *ER* TAB PO SCH (08:06)
[2016-05-18] MEDS: POTASSIUM CHLORIDE 10 MEQ SR TABLET PO SCH (08:06)
[2016-05-19 08:00] VITALS: BP 158/89
[2016-05-19] MEDS: COSOPT OCUMETER PLUS 10ML (DORZOLAMIDE/TIMOLOL) OU SCH ×2 (08:57→19:55)
[2016-05-19] MEDS: DIVALPROEX 500MG *ER* TAB PO SCH (08:57)
[2016-05-19] MEDS: POTASSIUM CHLORIDE 10 MEQ SR TABLET PO SCH (08:57)
[2016-05-19] MEDS: risperiDONE 0.5 MG TAB PO SCH ×2 (08:58→19:55)
[2016-05-19] MEDS: QUEtiapine FUMARATE 200 MG TAB PO SCH ×2 (08:58→19:55)
[2016-05-19] MEDS: THIAMINE 100 MG TAB PO SCH (08:58)
[2016-05-19] MEDS: FUROSEMIDE 40 MG TAB PO SCH (08:58)
[2016-05-19] MEDS: MULTIVITAMINS/MINERALS THERAP 1 TAB PO SCH (08:58)
[2016-05-19] MEDS: SENOKOT S TAB PO SCH ×2 (08:58→19:55)
[2016-05-19] MEDS: ASPIRIN 81 MG ENTERIC TAB PO SCH (08:58)
[2016-05-19] MEDS: FOLIC ACID 1 MG TAB PO SCH (08:58)
[2016-05-20 07:00] VITALS: BP 139/74
[2016-05-20] MEDS: COSOPT OCUMETER PLUS 10ML (DORZOLAMIDE/TIMOLOL) OU SCH ×2 (09:42→19:58)
[2016-05-20] MEDS: ASPIRIN 81 MG ENTERIC TAB PO SCH (09:43)
[2016-05-20] MEDS: DIVALPROEX 500MG *ER* TAB PO SCH (09:43)
[2016-05-20] MEDS: MULTIVITAMINS/MINERALS THERAP 1 TAB PO SCH (09:43)
[2016-05-20] MEDS: FUROSEMIDE 40 MG TAB PO SCH (09:43)
[2016-05-20] MEDS: risperiDONE 0.5 MG TAB PO SCH ×2 (09:43→19:58)
[2016-05-20] MEDS: SENOKOT S TAB PO SCH ×2 (09:43→19:58)
[2016-05-20] MEDS: QUEtiapine FUMARATE 200 MG TAB PO SCH ×2 (09:43→19:58)
[2016-05-20] MEDS: POTASSIUM CHLORIDE 10 MEQ SR TABLET PO SCH (09:43)
[2016-05-20] MEDS: THIAMINE 100 MG TAB PO SCH (09:43)
[2016-05-20] MEDS: FOLIC ACID 1 MG TAB PO SCH (09:44)
[2016-05-21 07:00] VITALS: BP 126/75
[2016-05-21] MEDS: MULTIVITAMINS/MINERALS THERAP 1 TAB PO SCH (08:02)
[2016-05-21] MEDS: ASPIRIN 81 MG ENTERIC TAB PO SCH (08:02)
[2016-05-21] MEDS: QUEtiapine FUMARATE 200 MG TAB PO SCH ×2 (08:02→20:05)
[2016-05-21] MEDS: FUROSEMIDE 40 MG TAB PO SCH (08:02)
[2016-05-21] MEDS: risperiDONE 0.5 MG TAB PO SCH ×2 (08:02→20:04)
[2016-05-21] MEDS: SENOKOT S TAB PO SCH ×2 (08:02→20:05)
[2016-05-21] MEDS: FOLIC ACID 1 MG TAB PO SCH (08:02)
[2016-05-21] MEDS: THIAMINE 100 MG TAB PO SCH (08:02)
[2016-05-21] MEDS: DIVALPROEX 500MG *ER* TAB PO SCH (08:02)
[2016-05-21] MEDS: POTASSIUM CHLORIDE 10 MEQ SR TABLET PO SCH (08:03)
[2016-05-21] MEDS: COSOPT OCUMETER PLUS 10ML (DORZOLAMIDE/TIMOLOL) OU SCH ×2 (08:04→20:05)
[2016-05-22 08:00] VITALS: BP 134/67
[2016-05-22] MEDS: DIVALPROEX 500MG *ER* TAB PO SCH (08:02)
[2016-05-22] MEDS: THIAMINE 100 MG TAB PO SCH (08:02)
[2016-05-22] MEDS: COSOPT OCUMETER PLUS 10ML (DORZOLAMIDE/TIMOLOL) OU SCH ×2 (08:02→19:53)
[2016-05-22] MEDS: MULTIVITAMINS/MINERALS THERAP 1 TAB PO SCH (08:02)
[2016-05-22] MEDS: FOLIC ACID 1 MG TAB PO SCH (08:02)
[2016-05-22] MEDS: QUEtiapine FUMARATE 200 MG TAB PO SCH ×2 (08:02→19:52)
[2016-05-22] MEDS: ASPIRIN 81 MG ENTERIC TAB PO SCH (08:02)
[2016-05-22] MEDS: risperiDONE 0.5 MG TAB PO SCH ×2 (08:02→19:52)
[2016-05-22] MEDS: FUROSEMIDE 40 MG TAB PO SCH (08:03)
[2016-05-22] MEDS: POTASSIUM CHLORIDE 10 MEQ SR TABLET PO SCH (08:03)
[2016-05-22] MEDS: SENOKOT S TAB PO SCH ×2 (08:03→19:52)
[2016-05-22 13:45] LABS: MEAN CORPUSCULAR HEMOGLOBIN 34.5 pg (27.0-33.0); MEAN CORPUSCULAR HGB CONC 33.8 g/dl (32.0-36.5); MEAN CORPUSCULAR VOLUME 102.2 fl (80.0-96.0); RED CELL DISTRIBUTION WIDTH 13.2 % (11.5-14.5); WHITE BLOOD COUNT 8.3 K/mm3 (4.0-10.0)
[2016-05-22 14:07] LABS: ANION GAP 9 MEQ/L (8-16); BLOOD UREA NITROGEN 12 MG/DL (7-18); CALCIUM LEVEL 8.9 MG/DL (8.8-10.2); CARBON DIOXIDE LEVEL 27 MEQ/L (21-32); CHLORIDE LEVEL 105 MEQ/L (98-107); GLOMERULAR FILTRATION RATE > 60.0 (>49); GLUCOSE, FASTING 107 MG/DL (80-110); POTASSIUM SERUM 4.6 MEQ/L (3.5-5.1); SODIUM LEVEL 141 MEQ/L (136-145)
--- NOTE | 2016-05-22 14:09 | REP ---
Clinical: Rule out infiltrate. Comparison: 11/11/2015. Findings: Mediastinum and cardiac silhouette are within normal limits and stable. Lung gallegos demonstrate chronic interstitial changes. Subtle superimposed lingular infiltrate cannot be excluded. Further consolidation, effusion, or pneumothorax. Skeletal structures intact. Impression: Cannot exclude subtle lingular infiltrate. Signed by Eduin Urbina MD 05/22/2016 02:00 P
[2016-05-23 07:00] VITALS: BP 145/73
[2016-05-23] MEDS: FUROSEMIDE 40 MG TAB PO SCH (08:32)
[2016-05-23] MEDS: QUEtiapine FUMARATE 200 MG TAB PO SCH ×2 (08:32→19:59)
[2016-05-23] MEDS: POTASSIUM CHLORIDE 10 MEQ SR TABLET PO SCH (08:32)
[2016-05-23] MEDS: SENOKOT S TAB PO SCH ×2 (08:32→19:59)
[2016-05-23] MEDS: MULTIVITAMINS/MINERALS THERAP 1 TAB PO SCH (08:32)
[2016-05-23] MEDS: risperiDONE 0.5 MG TAB PO SCH ×2 (08:32→19:59)
[2016-05-23] MEDS: THIAMINE 100 MG TAB PO SCH (08:32)
[2016-05-23] MEDS: ASPIRIN 81 MG ENTERIC TAB PO SCH (08:32)
[2016-05-23] MEDS: FOLIC ACID 1 MG TAB PO SCH (08:32)
[2016-05-23] MEDS: COSOPT OCUMETER PLUS 10ML (DORZOLAMIDE/TIMOLOL) OU SCH ×2 (08:32→19:58)
[2016-05-23] MEDS: DIVALPROEX 500MG *ER* TAB PO SCH (08:33)
[2016-05-24 07:00] VITALS: BP 125/71
[2016-05-24] MEDS: COSOPT OCUMETER PLUS 10ML (DORZOLAMIDE/TIMOLOL) OU SCH ×2 (08:35→20:11)
[2016-05-24] MEDS: THIAMINE 100 MG TAB PO SCH (08:35)
[2016-05-24] MEDS: POTASSIUM CHLORIDE 10 MEQ SR TABLET PO SCH (08:36)
[2016-05-24] MEDS: FUROSEMIDE 40 MG TAB PO SCH (08:36)
[2016-05-24] MEDS: ASPIRIN 81 MG ENTERIC TAB PO SCH (08:36)
[2016-05-24] MEDS: MULTIVITAMINS/MINERALS THERAP 1 TAB PO SCH (08:36)
[2016-05-24] MEDS: QUEtiapine FUMARATE 200 MG TAB PO SCH ×2 (08:36→20:11)
[2016-05-24] MEDS: FOLIC ACID 1 MG TAB PO SCH (08:36)
[2016-05-24] MEDS: SENOKOT S TAB PO SCH ×2 (08:36→20:11)
[2016-05-24] MEDS: DIVALPROEX 500MG *ER* TAB PO SCH (08:36)
[2016-05-24] MEDS: risperiDONE 0.5 MG TAB PO SCH ×2 (08:36→20:11)
[2016-05-25 08:00] VITALS: BP 138/81
[2016-05-25] MEDS: DIVALPROEX 500MG *ER* TAB PO SCH (09:05)
[2016-05-25] MEDS: risperiDONE 0.5 MG TAB PO SCH ×2 (09:06→19:56)
[2016-05-25] MEDS: SENOKOT S TAB PO SCH ×2 (09:06→19:56)
[2016-05-25] MEDS: QUEtiapine FUMARATE 200 MG TAB PO SCH ×2 (09:06→19:56)
[2016-05-25] MEDS: FOLIC ACID 1 MG TAB PO SCH (09:06)
[2016-05-25] MEDS: POTASSIUM CHLORIDE 10 MEQ SR TABLET PO SCH (09:06)
[2016-05-25] MEDS: ASPIRIN 81 MG ENTERIC TAB PO SCH (09:06)
[2016-05-25] MEDS: COSOPT OCUMETER PLUS 10ML (DORZOLAMIDE/TIMOLOL) OU SCH ×2 (09:06→19:55)
[2016-05-25] MEDS: THIAMINE 100 MG TAB PO SCH (09:07)
[2016-05-25] MEDS: FUROSEMIDE 40 MG TAB PO SCH (09:07)
[2016-05-25] MEDS: MULTIVITAMINS/MINERALS THERAP 1 TAB PO SCH (09:07)
[2016-05-26 08:00] VITALS: BP 150/79
[2016-05-26] MEDS: THIAMINE 100 MG TAB PO SCH (08:24)
[2016-05-26] MEDS: FUROSEMIDE 40 MG TAB PO SCH (08:24)
[2016-05-26] MEDS: POTASSIUM CHLORIDE 10 MEQ SR TABLET PO SCH (08:24)
[2016-05-26] MEDS: DIVALPROEX 500MG *ER* TAB PO SCH (08:24)
[2016-05-26] MEDS: MULTIVITAMINS/MINERALS THERAP 1 TAB PO SCH (08:24)
[2016-05-26] MEDS: QUEtiapine FUMARATE 200 MG TAB PO SCH ×2 (08:25→19:28)
[2016-05-26] MEDS: SENOKOT S TAB PO SCH ×2 (08:25→19:28)
[2016-05-26] MEDS: FOLIC ACID 1 MG TAB PO SCH (08:25)
[2016-05-26] MEDS: COSOPT OCUMETER PLUS 10ML (DORZOLAMIDE/TIMOLOL) OU SCH ×2 (08:25→19:29)
[2016-05-26] MEDS: ASPIRIN 81 MG ENTERIC TAB PO SCH (08:25)
[2016-05-26] MEDS: risperiDONE 0.5 MG TAB PO SCH ×2 (08:25→19:28)
--- NOTE | 2016-05-26 13:42 | IPN ---
DATE: 05/25/2016 SUBJECTIVE: The patient reports he is feeling well. He tells me he was constipated earlier in the week, but he is having bowel movements regularly with prune juice and has no complaints. OBJECTIVE: VITAL SIGNS: Temperature 96.6, pulse 75, respiratory rate 18, blood pressure 138/81, O2 saturation 95% on room air. GENERAL: He is a pleasant elderly man sitting in bed. No distress. He is dressed in street clothes. HEENT: Cranial nerves II through XII are grossly intact. He has moist mucous membranes. No elevation of jugular venous pressure. CARDIOVASCULAR: S1, S2, regular. RESPIRATORY: Clear. ABDOMEN: Benign. EXTREMITIES: No clubbing, cyanosis or edema. He is wearing shoes. LABORATORY STUDIES: From 05/22: WBC 8.3, hemoglobin 13.5, hematocrit 39.9, platelet count 161. Chemistry panel: Sodium 141, potassium 4.6, chloride 105, bicarbonate 27, BUN 12, creatinine 0.7. No other new labs. The patient did have a chest x-ray as he was complaining of some cough on 03/22 which cannot exclude a subtle left lingular infiltrate. 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 PROBLEM LIST: 1. Alcoholic dementia. The patient is on thiamine, folic acid and a multivitamin. He is on Seroquel. 2. Bipolar disorder. 3. The patient is in Risperdal and Depakote. 4. Glaucoma. The patient is on Cosopt. 5. Hypertension. The patient is on Lasix. The patient is on baby aspirin. 6. Hypokalemia. The patient is on repletion. 7. Constipation. The patient is on Senna. 8. Deep venous thrombosis (DVT) prophylaxis. The patient is up and ambulating.
[2016-05-27 07:00] VITALS: BP 159/90
[2016-05-27] MEDS: DIVALPROEX 500MG *ER* TAB PO SCH (09:18)
[2016-05-27] MEDS: COSOPT OCUMETER PLUS 10ML (DORZOLAMIDE/TIMOLOL) OU SCH ×2 (09:18→19:47)
[2016-05-27] MEDS: MULTIVITAMINS/MINERALS THERAP 1 TAB PO SCH (09:18)
[2016-05-27] MEDS: FOLIC ACID 1 MG TAB PO SCH (09:18)
[2016-05-27] MEDS: FUROSEMIDE 40 MG TAB PO SCH (09:18)
[2016-05-27] MEDS: SENOKOT S TAB PO SCH ×2 (09:18→19:49)
[2016-05-27] MEDS: THIAMINE 100 MG TAB PO SCH (09:18)
[2016-05-27] MEDS: risperiDONE 0.5 MG TAB PO SCH ×2 (09:19→19:47)
[2016-05-27] MEDS: ASPIRIN 81 MG ENTERIC TAB PO SCH (09:19)
[2016-05-27] MEDS: POTASSIUM CHLORIDE 10 MEQ SR TABLET PO SCH (09:19)
[2016-05-27] MEDS: QUEtiapine FUMARATE 200 MG TAB PO SCH ×2 (09:19→19:47)
[2016-05-28 07:00] VITALS: BP 159/79
[2016-05-28] MEDS: COSOPT OCUMETER PLUS 10ML (DORZOLAMIDE/TIMOLOL) OU SCH ×2 (08:38→20:08)
[2016-05-28] MEDS: MULTIVITAMINS/MINERALS THERAP 1 TAB PO SCH (08:39)
[2016-05-28] MEDS: ASPIRIN 81 MG ENTERIC TAB PO SCH (08:39)
[2016-05-28] MEDS: SENOKOT S TAB PO SCH ×2 (08:39→20:08)
[2016-05-28] MEDS: FOLIC ACID 1 MG TAB PO SCH (08:39)
[2016-05-28] MEDS: risperiDONE 0.5 MG TAB PO SCH ×2 (08:40→20:08)
[2016-05-28] MEDS: FUROSEMIDE 40 MG TAB PO SCH (08:41)
[2016-05-28] MEDS: POTASSIUM CHLORIDE 10 MEQ SR TABLET PO SCH (08:41)
[2016-05-28] MEDS: QUEtiapine FUMARATE 200 MG TAB PO SCH ×2 (08:41→20:08)
[2016-05-28] MEDS: THIAMINE 100 MG TAB PO SCH (08:42)
[2016-05-28] MEDS: DIVALPROEX 500MG *ER* TAB PO SCH (08:50)
[2016-05-29 08:00] VITALS: BP 150/99
[2016-05-29] MEDS: ASPIRIN 81 MG ENTERIC TAB PO SCH (09:00)
[2016-05-29] MEDS: FOLIC ACID 1 MG TAB PO SCH (09:00)
[2016-05-29] MEDS: COSOPT OCUMETER PLUS 10ML (DORZOLAMIDE/TIMOLOL) OU SCH ×2 (09:00→19:52)
[2016-05-29] MEDS: FUROSEMIDE 40 MG TAB PO SCH (09:01)
[2016-05-29] MEDS: MULTIVITAMINS/MINERALS THERAP 1 TAB PO SCH (09:01)
[2016-05-29] MEDS: SENOKOT S TAB PO SCH ×2 (09:01→19:52)
[2016-05-29] MEDS: risperiDONE 0.5 MG TAB PO SCH ×2 (09:01→19:52)
[2016-05-29] MEDS: THIAMINE 100 MG TAB PO SCH (09:01)
[2016-05-29] MEDS: DIVALPROEX 500MG *ER* TAB PO SCH (09:01)
[2016-05-29] MEDS: POTASSIUM CHLORIDE 10 MEQ SR TABLET PO SCH (09:01)
[2016-05-29] MEDS: QUEtiapine FUMARATE 200 MG TAB PO SCH ×2 (09:01→19:52)
[2016-05-30 08:00] VITALS: BP 147/76
[2016-05-30] MEDS: FOLIC ACID 1 MG TAB PO SCH (08:37)
[2016-05-30] MEDS: MULTIVITAMINS/MINERALS THERAP 1 TAB PO SCH (08:37)
[2016-05-30] MEDS: DIVALPROEX 500MG *ER* TAB PO SCH (08:37)
[2016-05-30] MEDS: QUEtiapine FUMARATE 200 MG TAB PO SCH ×2 (08:37→20:04)
[2016-05-30] MEDS: POTASSIUM CHLORIDE 10 MEQ SR TABLET PO SCH (08:38)
[2016-05-30] MEDS: SENOKOT S TAB PO SCH ×2 (08:38→20:04)
[2016-05-30] MEDS: COSOPT OCUMETER PLUS 10ML (DORZOLAMIDE/TIMOLOL) OU SCH ×2 (08:38→20:04)
[2016-05-30] MEDS: FUROSEMIDE 40 MG TAB PO SCH (08:38)
[2016-05-30] MEDS: ASPIRIN 81 MG ENTERIC TAB PO SCH (08:38)
[2016-05-30] MEDS: THIAMINE 100 MG TAB PO SCH (08:38)
[2016-05-30] MEDS: risperiDONE 0.5 MG TAB PO SCH ×2 (08:38→20:04)
[2016-05-31 08:47] VITALS: BP 144/70
[2016-05-31] MEDS: risperiDONE 0.5 MG TAB PO SCH ×2 (09:11→19:31)
[2016-05-31] MEDS: COSOPT OCUMETER PLUS 10ML (DORZOLAMIDE/TIMOLOL) OU SCH ×2 (09:11→19:31)
[2016-05-31] MEDS: ASPIRIN 81 MG ENTERIC TAB PO SCH (09:11)
[2016-05-31] MEDS: QUEtiapine FUMARATE 200 MG TAB PO SCH ×2 (09:11→19:31)
[2016-05-31] MEDS: MULTIVITAMINS/MINERALS THERAP 1 TAB PO SCH (09:11)
[2016-05-31] MEDS: SENOKOT S TAB PO SCH ×2 (09:11→19:31)
[2016-05-31] MEDS: POTASSIUM CHLORIDE 10 MEQ SR TABLET PO SCH (09:11)
[2016-05-31] MEDS: THIAMINE 100 MG TAB PO SCH (09:11)
[2016-05-31] MEDS: FOLIC ACID 1 MG TAB PO SCH (09:11)
[2016-05-31] MEDS: FUROSEMIDE 40 MG TAB PO SCH (09:12)
[2016-05-31] MEDS: DIVALPROEX 500MG *ER* TAB PO SCH (09:12)
[2016-06-01 07:00] VITALS: BP 139/76
[2016-06-01] MEDS: SENOKOT S TAB PO SCH ×2 (08:14→20:20)
[2016-06-01] MEDS: FUROSEMIDE 40 MG TAB PO SCH (08:14)
[2016-06-01] MEDS: COSOPT OCUMETER PLUS 10ML (DORZOLAMIDE/TIMOLOL) OU SCH ×2 (08:14→20:20)
[2016-06-01] MEDS: QUEtiapine FUMARATE 200 MG TAB PO SCH ×2 (08:14→20:20)
[2016-06-01] MEDS: FOLIC ACID 1 MG TAB PO SCH (08:14)
[2016-06-01] MEDS: THIAMINE 100 MG TAB PO SCH (08:14)
[2016-06-01] MEDS: ASPIRIN 81 MG ENTERIC TAB PO SCH (08:14)
[2016-06-01] MEDS: risperiDONE 0.5 MG TAB PO SCH ×2 (08:14→20:20)
[2016-06-01] MEDS: MULTIVITAMINS/MINERALS THERAP 1 TAB PO SCH (08:14)
[2016-06-01] MEDS: DIVALPROEX 500MG *ER* TAB PO SCH (08:15)
[2016-06-01] MEDS: POTASSIUM CHLORIDE 10 MEQ SR TABLET PO SCH (08:15)
[2016-06-02 08:00] VITALS: BP 164/77
[2016-06-02] MEDS: DIVALPROEX 500MG *ER* TAB PO SCH (09:12)
[2016-06-02] MEDS: COSOPT OCUMETER PLUS 10ML (DORZOLAMIDE/TIMOLOL) OU SCH ×2 (09:12→19:45)
[2016-06-02] MEDS: POTASSIUM CHLORIDE 10 MEQ SR TABLET PO SCH (09:13)
[2016-06-02] MEDS: FUROSEMIDE 40 MG TAB PO SCH (09:13)
[2016-06-02] MEDS: QUEtiapine FUMARATE 200 MG TAB PO SCH ×2 (09:13→19:45)
[2016-06-02] MEDS: ASPIRIN 81 MG ENTERIC TAB PO SCH (09:13)
[2016-06-02] MEDS: SENOKOT S TAB PO SCH ×2 (09:13→19:45)
[2016-06-02] MEDS: MULTIVITAMINS/MINERALS THERAP 1 TAB PO SCH (09:13)
[2016-06-02] MEDS: THIAMINE 100 MG TAB PO SCH (09:13)
[2016-06-02] MEDS: FOLIC ACID 1 MG TAB PO SCH (09:13)
[2016-06-02] MEDS: risperiDONE 0.5 MG TAB PO SCH ×2 (09:13→19:45)
[2016-06-03 08:00] VITALS: BP 149/87
[2016-06-03] MEDS: COSOPT OCUMETER PLUS 10ML (DORZOLAMIDE/TIMOLOL) OU SCH ×2 (09:05→23:51)
[2016-06-03] MEDS: POTASSIUM CHLORIDE 10 MEQ SR TABLET PO SCH (09:05)
[2016-06-03] MEDS: FOLIC ACID 1 MG TAB PO SCH (09:06)
[2016-06-03] MEDS: MULTIVITAMINS/MINERALS THERAP 1 TAB PO SCH (09:06)
[2016-06-03] MEDS: ASPIRIN 81 MG ENTERIC TAB PO SCH (09:06)
[2016-06-03] MEDS: QUEtiapine FUMARATE 200 MG TAB PO SCH ×2 (09:06→23:51)
[2016-06-03] MEDS: DIVALPROEX 500MG *ER* TAB PO SCH (09:06)
[2016-06-03] MEDS: FUROSEMIDE 40 MG TAB PO SCH (09:06)
[2016-06-03] MEDS: THIAMINE 100 MG TAB PO SCH (09:06)
[2016-06-03] MEDS: risperiDONE 0.5 MG TAB PO SCH ×2 (09:06→23:51)
[2016-06-03] MEDS: SENOKOT S TAB PO SCH ×2 (09:06→23:51)
[2016-06-04 08:00] VITALS: BP 139/76
[2016-06-04] MEDS: COSOPT OCUMETER PLUS 10ML (DORZOLAMIDE/TIMOLOL) OU SCH ×2 (08:30→23:06)
[2016-06-04] MEDS: FUROSEMIDE 40 MG TAB PO SCH (08:31)
[2016-06-04] MEDS: MULTIVITAMINS/MINERALS THERAP 1 TAB PO SCH (08:31)
[2016-06-04] MEDS: QUEtiapine FUMARATE 200 MG TAB PO SCH ×2 (08:31→23:05)
[2016-06-04] MEDS: risperiDONE 0.5 MG TAB PO SCH ×2 (08:31→23:05)
[2016-06-04] MEDS: DIVALPROEX 500MG *ER* TAB PO SCH (08:31)
[2016-06-04] MEDS: THIAMINE 100 MG TAB PO SCH (08:31)
[2016-06-04] MEDS: ASPIRIN 81 MG ENTERIC TAB PO SCH (08:31)
[2016-06-04] MEDS: SENOKOT S TAB PO SCH ×2 (08:31→23:05)
[2016-06-04] MEDS: FOLIC ACID 1 MG TAB PO SCH (08:31)
[2016-06-04] MEDS: POTASSIUM CHLORIDE 10 MEQ SR TABLET PO SCH (08:31)
[2016-06-05 08:00] VITALS: BP 144/69
[2016-06-05] MEDS: QUEtiapine FUMARATE 200 MG TAB PO SCH ×2 (08:38→20:51)
[2016-06-05] MEDS: SENOKOT S TAB PO SCH ×2 (08:38→20:51)
[2016-06-05] MEDS: FOLIC ACID 1 MG TAB PO SCH (08:38)
[2016-06-05] MEDS: ASPIRIN 81 MG ENTERIC TAB PO SCH (08:38)
[2016-06-05] MEDS: MULTIVITAMINS/MINERALS THERAP 1 TAB PO SCH (08:38)
[2016-06-05] MEDS: COSOPT OCUMETER PLUS 10ML (DORZOLAMIDE/TIMOLOL) OU SCH ×2 (08:38→20:51)
[2016-06-05] MEDS: risperiDONE 0.5 MG TAB PO SCH ×2 (08:38→20:51)
[2016-06-05] MEDS: FUROSEMIDE 40 MG TAB PO SCH (08:38)
[2016-06-05] MEDS: DIVALPROEX 500MG *ER* TAB PO SCH (08:39)
[2016-06-05] MEDS: POTASSIUM CHLORIDE 10 MEQ SR TABLET PO SCH (08:39)
[2016-06-05] MEDS: THIAMINE 100 MG TAB PO SCH (08:39)
[2016-06-05] MEDS: ACETAMINOPHEN TAB 650MG DOSE (2X325MG) PO PRN (12:29)
[2016-06-06 07:00] VITALS: BP 141/69
[2016-06-06] MEDS: QUEtiapine FUMARATE 200 MG TAB PO SCH ×2 (08:22→19:51)
[2016-06-06] MEDS: ASPIRIN 81 MG ENTERIC TAB PO SCH (08:22)
[2016-06-06] MEDS: THIAMINE 100 MG TAB PO SCH (08:22)
[2016-06-06] MEDS: risperiDONE 0.5 MG TAB PO SCH ×2 (08:22→19:51)
[2016-06-06] MEDS: SENOKOT S TAB PO SCH ×2 (08:22→19:51)
[2016-06-06] MEDS: FOLIC ACID 1 MG TAB PO SCH (08:22)
[2016-06-06] MEDS: COSOPT OCUMETER PLUS 10ML (DORZOLAMIDE/TIMOLOL) OU SCH ×2 (08:22→19:51)
[2016-06-06] MEDS: POTASSIUM CHLORIDE 10 MEQ SR TABLET PO SCH (08:22)
[2016-06-06] MEDS: MULTIVITAMINS/MINERALS THERAP 1 TAB PO SCH (08:22)
[2016-06-06] MEDS: DIVALPROEX 500MG *ER* TAB PO SCH (08:23)
[2016-06-06] MEDS: FUROSEMIDE 40 MG TAB PO SCH (08:23)
[2016-06-06] MEDS: ACETAMINOPHEN TAB 650MG DOSE (2X325MG) PO PRN (13:47)
[2016-06-07] MEDS: DIVALPROEX 500MG *ER* TAB PO SCH (08:14)
[2016-06-07] MEDS: THIAMINE 100 MG TAB PO SCH (08:14)
[2016-06-07] MEDS: risperiDONE 0.5 MG TAB PO SCH ×2 (08:14→20:49)
[2016-06-07] MEDS: COSOPT OCUMETER PLUS 10ML (DORZOLAMIDE/TIMOLOL) OU SCH ×2 (08:14→20:50)
[2016-06-07] MEDS: POTASSIUM CHLORIDE 10 MEQ SR TABLET PO SCH (08:15)
[2016-06-07] MEDS: FOLIC ACID 1 MG TAB PO SCH (08:16)
[2016-06-07] MEDS: ASPIRIN 81 MG ENTERIC TAB PO SCH (08:16)
[2016-06-07] MEDS: MULTIVITAMINS/MINERALS THERAP 1 TAB PO SCH (08:16)
[2016-06-07] MEDS: FUROSEMIDE 40 MG TAB PO SCH (08:16)
[2016-06-07] MEDS: QUEtiapine FUMARATE 200 MG TAB PO SCH ×2 (08:16→20:49)
[2016-06-07] MEDS: SENOKOT S TAB PO SCH ×2 (08:16→20:49)
[2016-06-07] MEDS: ACETAMINOPHEN TAB 650MG DOSE (2X325MG) PO PRN (08:22)
[2016-06-07 08:35] VITALS: BP 127/71
[2016-06-08 08:00] VITALS: BP 144/78
[2016-06-08] MEDS: POTASSIUM CHLORIDE 10 MEQ SR TABLET PO SCH (09:04)
[2016-06-08] MEDS: DIVALPROEX 500MG *ER* TAB PO SCH (09:04)
[2016-06-08] MEDS: FOLIC ACID 1 MG TAB PO SCH (09:04)
[2016-06-08] MEDS: risperiDONE 0.5 MG TAB PO SCH ×2 (09:04→20:12)
[2016-06-08] MEDS: QUEtiapine FUMARATE 200 MG TAB PO SCH ×2 (09:04→20:12)
[2016-06-08] MEDS: FUROSEMIDE 40 MG TAB PO SCH (09:05)
[2016-06-08] MEDS: THIAMINE 100 MG TAB PO SCH (09:05)
[2016-06-08] MEDS: MULTIVITAMINS/MINERALS THERAP 1 TAB PO SCH (09:05)
[2016-06-08] MEDS: ASPIRIN 81 MG ENTERIC TAB PO SCH (09:05)
[2016-06-08] MEDS: COSOPT OCUMETER PLUS 10ML (DORZOLAMIDE/TIMOLOL) OU SCH ×2 (09:05→20:12)
[2016-06-08] MEDS: SENOKOT S TAB PO SCH ×2 (09:05→20:12)
[2016-06-09] MEDS: SENOKOT S TAB PO SCH ×2 (08:18→21:08)
[2016-06-09] MEDS: COSOPT OCUMETER PLUS 10ML (DORZOLAMIDE/TIMOLOL) OU SCH ×2 (08:18→21:08)
[2016-06-09] MEDS: POTASSIUM CHLORIDE 10 MEQ SR TABLET PO SCH (08:19)
[2016-06-09] MEDS: FOLIC ACID 1 MG TAB PO SCH (08:19)
[2016-06-09] MEDS: THIAMINE 100 MG TAB PO SCH (08:19)
[2016-06-09] MEDS: QUEtiapine FUMARATE 200 MG TAB PO SCH ×2 (08:19→21:08)
[2016-06-09] MEDS: MULTIVITAMINS/MINERALS THERAP 1 TAB PO SCH (08:19)
[2016-06-09] MEDS: risperiDONE 0.5 MG TAB PO SCH ×2 (08:19→21:08)
[2016-06-09] MEDS: FUROSEMIDE 40 MG TAB PO SCH (08:19)
[2016-06-09] MEDS: ASPIRIN 81 MG ENTERIC TAB PO SCH (08:19)
[2016-06-09] MEDS: ACETAMINOPHEN TAB 650MG DOSE (2X325MG) PO PRN (08:19)
[2016-06-09] MEDS: DIVALPROEX 500MG *ER* TAB PO SCH (08:20)
[2016-06-09 08:28] VITALS: BP 129/67
[2016-06-10 07:00] VITALS: BP 152/86
[2016-06-10] MEDS: COSOPT OCUMETER PLUS 10ML (DORZOLAMIDE/TIMOLOL) OU SCH ×2 (08:17→19:38)
[2016-06-10] MEDS: SENOKOT S TAB PO SCH ×2 (08:18→19:38)
[2016-06-10] MEDS: THIAMINE 100 MG TAB PO SCH (08:18)
[2016-06-10] MEDS: ACETAMINOPHEN TAB 650MG DOSE (2X325MG) PO PRN (08:18)
[2016-06-10] MEDS: MULTIVITAMINS/MINERALS THERAP 1 TAB PO SCH (08:18)
[2016-06-10] MEDS: risperiDONE 0.5 MG TAB PO SCH ×2 (08:18→19:38)
[2016-06-10] MEDS: FOLIC ACID 1 MG TAB PO SCH (08:18)
[2016-06-10] MEDS: QUEtiapine FUMARATE 200 MG TAB PO SCH ×2 (08:18→19:38)
[2016-06-10] MEDS: ASPIRIN 81 MG ENTERIC TAB PO SCH (08:18)
[2016-06-10] MEDS: POTASSIUM CHLORIDE 10 MEQ SR TABLET PO SCH (08:18)
[2016-06-10] MEDS: DIVALPROEX 500MG *ER* TAB PO SCH (08:19)
[2016-06-10] MEDS: FUROSEMIDE 40 MG TAB PO SCH (08:19)
[2016-06-11] MEDS: ACETAMINOPHEN TAB 650MG DOSE (2X325MG) PO PRN ×3 (02:48→19:44)
[2016-06-11 07:00] VITALS: BP 161/77
[2016-06-11] MEDS: MULTIVITAMINS/MINERALS THERAP 1 TAB PO SCH (08:32)
[2016-06-11] MEDS: ASPIRIN 81 MG ENTERIC TAB PO SCH (08:32)
[2016-06-11] MEDS: THIAMINE 100 MG TAB PO SCH (08:32)
[2016-06-11] MEDS: SENOKOT S TAB PO SCH ×2 (08:32→19:44)
[2016-06-11] MEDS: risperiDONE 0.5 MG TAB PO SCH ×2 (08:32→19:44)
[2016-06-11] MEDS: COSOPT OCUMETER PLUS 10ML (DORZOLAMIDE/TIMOLOL) OU SCH ×2 (08:32→19:43)
[2016-06-11] MEDS: QUEtiapine FUMARATE 200 MG TAB PO SCH ×2 (08:32→19:44)
[2016-06-11] MEDS: FOLIC ACID 1 MG TAB PO SCH (08:32)
[2016-06-11] MEDS: DIVALPROEX 500MG *ER* TAB PO SCH (08:33)
[2016-06-11] MEDS: FUROSEMIDE 40 MG TAB PO SCH (08:33)
[2016-06-11] MEDS: POTASSIUM CHLORIDE 10 MEQ SR TABLET PO SCH (08:33)
[2016-06-11] MEDS: CEPACOL LOZENGE PO PRN (19:44)
[2016-06-12 07:00] VITALS: BP 126/62
[2016-06-12] MEDS: POTASSIUM CHLORIDE 10 MEQ SR TABLET PO SCH (09:06)
[2016-06-12] MEDS: COSOPT OCUMETER PLUS 10ML (DORZOLAMIDE/TIMOLOL) OU SCH ×2 (09:06→21:02)
[2016-06-12] MEDS: risperiDONE 0.5 MG TAB PO SCH ×2 (09:06→21:02)
[2016-06-12] MEDS: FOLIC ACID 1 MG TAB PO SCH (09:07)
[2016-06-12] MEDS: SENOKOT S TAB PO SCH ×2 (09:07→21:02)
[2016-06-12] MEDS: MULTIVITAMINS/MINERALS THERAP 1 TAB PO SCH (09:07)
[2016-06-12] MEDS: DIVALPROEX 500MG *ER* TAB PO SCH (09:07)
[2016-06-12] MEDS: ASPIRIN 81 MG ENTERIC TAB PO SCH (09:07)
[2016-06-12] MEDS: FUROSEMIDE 40 MG TAB PO SCH (09:07)
[2016-06-12] MEDS: QUEtiapine FUMARATE 200 MG TAB PO SCH ×2 (09:07→21:02)
[2016-06-12] MEDS: THIAMINE 100 MG TAB PO SCH (09:08)
[2016-06-12] MEDS: ACETAMINOPHEN TAB 650MG DOSE (2X325MG) PO PRN (09:19)
[2016-06-13 06:54] LABS: MEAN CORPUSCULAR HEMOGLOBIN 35.3 pg (27.0-33.0); MEAN CORPUSCULAR HGB CONC 35.2 g/dl (32.0-36.5); MEAN CORPUSCULAR VOLUME 100.3 fl (80.0-96.0); RED CELL DISTRIBUTION WIDTH 13.2 % (11.5-14.5); WHITE BLOOD COUNT 9.6 K/mm3 (4.0-10.0)
[2016-06-13 07:03] LABS: ANION GAP 9 MEQ/L (8-16); BLOOD UREA NITROGEN 13 MG/DL (7-18); CARBON DIOXIDE LEVEL 27 MEQ/L (21-32); CHLORIDE LEVEL 104 MEQ/L (98-107); CREATININE FOR GFR 0.72 MG/DL (0.70-1.30); GLOMERULAR FILTRATION RATE > 60.0 (>49); GLUCOSE, FASTING 91 MG/DL (80-110); POTASSIUM SERUM 4.3 MEQ/L (3.5-5.1); SODIUM LEVEL 140 MEQ/L (136-145)
[2016-06-13] MEDS: MULTIVITAMINS/MINERALS THERAP 1 TAB PO SCH (09:49)
[2016-06-13] MEDS: DIVALPROEX 500MG *ER* TAB PO SCH (09:50)
[2016-06-13] MEDS: FUROSEMIDE 40 MG TAB PO SCH (09:50)
[2016-06-13] MEDS: THIAMINE 100 MG TAB PO SCH (09:50)
[2016-06-13] MEDS: ASPIRIN 81 MG ENTERIC TAB PO SCH (09:50)
[2016-06-13] MEDS: SENOKOT S TAB PO SCH ×2 (09:50→20:39)
[2016-06-13] MEDS: risperiDONE 0.5 MG TAB PO SCH ×2 (09:50→20:39)
[2016-06-13] MEDS: QUEtiapine FUMARATE 200 MG TAB PO SCH ×2 (09:50→20:39)
[2016-06-13] MEDS: FOLIC ACID 1 MG TAB PO SCH (09:50)
[2016-06-13] MEDS: POTASSIUM CHLORIDE 10 MEQ SR TABLET PO SCH (09:51)
[2016-06-13] MEDS: COSOPT OCUMETER PLUS 10ML (DORZOLAMIDE/TIMOLOL) OU SCH ×2 (09:51→22:09)
[2016-06-13] MEDS: ACETAMINOPHEN TAB 650MG DOSE (2X325MG) PO PRN (09:54)
[2016-06-13 14:00] VITALS: BP 129/77
[2016-06-14 06:00] VITALS: BP 139/65
[2016-06-14] MEDS: THIAMINE 100 MG TAB PO SCH (08:00)
[2016-06-14] MEDS: QUEtiapine FUMARATE 200 MG TAB PO SCH ×2 (08:00→20:20)
[2016-06-14] MEDS: ASPIRIN 81 MG ENTERIC TAB PO SCH (08:00)
[2016-06-14] MEDS: MULTIVITAMINS/MINERALS THERAP 1 TAB PO SCH (08:00)
[2016-06-14] MEDS: DIVALPROEX 500MG *ER* TAB PO SCH (08:00)
[2016-06-14] MEDS: risperiDONE 0.5 MG TAB PO SCH ×2 (08:00→20:20)
[2016-06-14] MEDS: FUROSEMIDE 40 MG TAB PO SCH (08:00)
[2016-06-14] MEDS: FOLIC ACID 1 MG TAB PO SCH (08:00)
[2016-06-14] MEDS: SENOKOT S TAB PO SCH ×2 (08:00→20:20)
[2016-06-14] MEDS: COSOPT OCUMETER PLUS 10ML (DORZOLAMIDE/TIMOLOL) OU SCH ×2 (08:01→20:20)
[2016-06-14] MEDS: POTASSIUM CHLORIDE 10 MEQ SR TABLET PO SCH (08:01)
[2016-06-14] MEDS ORDERED: THIA100TA PO (14:01)
[2016-06-14] MEDS ORDERED: RISP0.5T16 PO (14:01)
[2016-06-14] MEDS ORDERED: VITMTA PO (14:01)
[2016-06-14] MEDS ORDERED: FOLI1TAB2 PO (14:01)
[2016-06-14] MEDS ORDERED: POTA10CA PO (14:01)
[2016-06-14] MEDS ORDERED: FURO40TA2 PO (14:01)
[2016-06-14] MEDS ORDERED: SENN1TAB2 PO (14:01)
[2016-06-14] MEDS: ACETAMINOPHEN TAB 650MG DOSE (2X325MG) PO PRN (20:25)
[2016-06-15] MEDS: ACETAMINOPHEN TAB 650MG DOSE (2X325MG) PO PRN (06:30)
[2016-06-15] MEDS: risperiDONE 0.5 MG TAB PO SCH ×2 (08:22→20:08)
[2016-06-15] MEDS: THIAMINE 100 MG TAB PO SCH (08:22)
[2016-06-15] MEDS: SENOKOT S TAB PO SCH ×2 (08:22→20:08)
[2016-06-15] MEDS: QUEtiapine FUMARATE 200 MG TAB PO SCH ×2 (08:22→20:08)
[2016-06-15] MEDS: ASPIRIN 81 MG ENTERIC TAB PO SCH (08:22)
[2016-06-15] MEDS: FUROSEMIDE 40 MG TAB PO SCH (08:22)
[2016-06-15] MEDS: MULTIVITAMINS/MINERALS THERAP 1 TAB PO SCH (08:22)
[2016-06-15] MEDS: FOLIC ACID 1 MG TAB PO SCH (08:22)
[2016-06-15] MEDS: POTASSIUM CHLORIDE 10 MEQ SR TABLET PO SCH (08:23)
[2016-06-15] MEDS: COSOPT OCUMETER PLUS 10ML (DORZOLAMIDE/TIMOLOL) OU SCH ×2 (08:23→20:09)
[2016-06-15] MEDS: DIVALPROEX 500MG *ER* TAB PO SCH (08:23)
--- NOTE | 2016-06-15 16:33 | IPN ---
DATE: 06/15/2016 SUBJECTIVE: The patient is seen and examined in the room. The patient is alert and oriented times three. The patient knows about the place, knows about the year. Denies any chest pain or shortness of breath. No issue with oral intake. Denies any issue with urination or bowel movement. No issue with ambulation. OBJECTIVE: VITAL SIGNS: Temperature is 97.3, pulse is 66, respirations 16, blood pressure is 139/65, pulse oximetry is 90% on room air. GENERAL: No sign of acute distress. Alert and oriented times three. HEENT: Normocephalic, atraumatic. Extraocular motor grossly intact. CARDIOVASCULAR: Positive S1, S2, regular rate. LUNGS: Clear. ABDOMEN: Benign. EXTREMITIES: No edema. No cyanosis. LABORATORY DATA: WBC is 9.6, hemoglobin 13.2, hematocrit is 37.3, platelet count is 128. Sodium is 140, potassium 4.3, chloride is 104, carbon dioxide 27, BUN 13, creatinine 0.72, GFR is greater than 60, fasting glucose 90, calcium is 9. ASSESSMENT AND PLAN: 1. History of alcoholic dementia. The patient is at baseline, on thiamine, folic acid, multivitamin, and Seroquel. 2. History of bipolar disorder. The patient is on Risperdal and Depakote. 3. History of glaucoma, on eye drops. 4. Hypertension, on Lasix. 5. History of constipation, resolved. 6. Deep vein thrombosis (DVT) prophylaxis. The patient has a good activity level. No anticoagulation medication is needed at this moment. Disposition: Social work services has been very helpful and patient has a potential placement assignment in the nursing facility and patient should have a room assignment on 06/27/2016. SAAD
[2016-06-16 06:00] VITALS: BP 141/79
[2016-06-16] MEDS: COSOPT OCUMETER PLUS 10ML (DORZOLAMIDE/TIMOLOL) OU SCH ×2 (08:35→21:54)
[2016-06-16] MEDS: risperiDONE 0.5 MG TAB PO SCH ×2 (08:36→21:53)
[2016-06-16] MEDS: FOLIC ACID 1 MG TAB PO SCH (08:36)
[2016-06-16] MEDS: THIAMINE 100 MG TAB PO SCH (08:36)
[2016-06-16] MEDS: QUEtiapine FUMARATE 200 MG TAB PO SCH ×2 (08:36→21:53)
[2016-06-16] MEDS: MULTIVITAMINS/MINERALS THERAP 1 TAB PO SCH (08:36)
[2016-06-16] MEDS: ASPIRIN 81 MG ENTERIC TAB PO SCH (08:36)
[2016-06-16] MEDS: DIVALPROEX 500MG *ER* TAB PO SCH (08:36)
[2016-06-16] MEDS: FUROSEMIDE 40 MG TAB PO SCH (08:36)
[2016-06-16] MEDS: POTASSIUM CHLORIDE 10 MEQ SR TABLET PO SCH (08:36)
[2016-06-16] MEDS: SENOKOT S TAB PO SCH ×2 (08:37→21:53)
[2016-06-16] MEDS: ACETAMINOPHEN TAB 650MG DOSE (2X325MG) PO PRN (09:04)
[2016-06-17 06:09] VITALS: BP 128/64
[2016-06-17] MEDS: ACETAMINOPHEN TAB 650MG DOSE (2X325MG) PO PRN ×2 (07:39→20:32)
[2016-06-17] MEDS: COSOPT OCUMETER PLUS 10ML (DORZOLAMIDE/TIMOLOL) OU SCH ×2 (09:00→20:32)
[2016-06-17] MEDS: MULTIVITAMINS/MINERALS THERAP 1 TAB PO SCH (09:34)
[2016-06-17] MEDS: POTASSIUM CHLORIDE 10 MEQ SR TABLET PO SCH (09:35)
[2016-06-17] MEDS: SENOKOT S TAB PO SCH ×2 (09:35→20:33)
[2016-06-17] MEDS: DIVALPROEX 500MG *ER* TAB PO SCH (09:36)
[2016-06-17] MEDS: FOLIC ACID 1 MG TAB PO SCH (09:37)
[2016-06-17] MEDS: ASPIRIN 81 MG ENTERIC TAB PO SCH (09:37)
[2016-06-17] MEDS: FUROSEMIDE 40 MG TAB PO SCH (09:37)
[2016-06-17] MEDS: QUEtiapine FUMARATE 200 MG TAB PO SCH ×2 (09:37→20:33)
[2016-06-17] MEDS: risperiDONE 0.5 MG TAB PO SCH ×2 (09:45→20:33)
[2016-06-17] MEDS: THIAMINE 100 MG TAB PO SCH (09:45)
[2016-06-18 06:00] VITALS: BP 134/68
[2016-06-18] MEDS: FUROSEMIDE 40 MG TAB PO SCH (08:54)
[2016-06-18] MEDS: MULTIVITAMINS/MINERALS THERAP 1 TAB PO SCH (08:54)
[2016-06-18] MEDS: QUEtiapine FUMARATE 200 MG TAB PO SCH ×2 (08:54→19:32)
[2016-06-18] MEDS: THIAMINE 100 MG TAB PO SCH (08:54)
[2016-06-18] MEDS: risperiDONE 0.5 MG TAB PO SCH ×2 (08:54→19:32)
[2016-06-18] MEDS: SENOKOT S TAB PO SCH ×2 (08:54→19:32)
[2016-06-18] MEDS: FOLIC ACID 1 MG TAB PO SCH (08:54)
[2016-06-18] MEDS: ASPIRIN 81 MG ENTERIC TAB PO SCH (08:54)
[2016-06-18] MEDS: POTASSIUM CHLORIDE 10 MEQ SR TABLET PO SCH (08:54)
[2016-06-18] MEDS: DIVALPROEX 500MG *ER* TAB PO SCH (08:55)
[2016-06-18] MEDS: COSOPT OCUMETER PLUS 10ML (DORZOLAMIDE/TIMOLOL) OU SCH ×2 (08:55→19:32)
[2016-06-18] MEDS: ACETAMINOPHEN TAB 650MG DOSE (2X325MG) PO PRN ×2 (08:56→19:36)
[2016-06-18 14:00] VITALS: BP 129/70
[2016-06-19 06:00] VITALS: BP 157/80
[2016-06-19] MEDS: risperiDONE 0.5 MG TAB PO SCH ×2 (09:44→21:02)
[2016-06-19] MEDS: FOLIC ACID 1 MG TAB PO SCH (09:44)
[2016-06-19] MEDS: ASPIRIN 81 MG ENTERIC TAB PO SCH (09:44)
[2016-06-19] MEDS: MULTIVITAMINS/MINERALS THERAP 1 TAB PO SCH (09:44)
[2016-06-19] MEDS: COSOPT OCUMETER PLUS 10ML (DORZOLAMIDE/TIMOLOL) OU SCH ×2 (09:44→21:02)
[2016-06-19] MEDS: QUEtiapine FUMARATE 200 MG TAB PO SCH ×2 (09:44→21:02)
[2016-06-19] MEDS: SENOKOT S TAB PO SCH ×2 (09:44→21:02)
[2016-06-19] MEDS: THIAMINE 100 MG TAB PO SCH (09:44)
[2016-06-19] MEDS: FUROSEMIDE 40 MG TAB PO SCH (09:45)
[2016-06-19] MEDS: ACETAMINOPHEN TAB 650MG DOSE (2X325MG) PO PRN ×2 (09:45→21:02)
[2016-06-19] MEDS: DIVALPROEX 500MG *ER* TAB PO SCH (09:45)
[2016-06-19] MEDS: POTASSIUM CHLORIDE 10 MEQ SR TABLET PO SCH (09:45)
[2016-06-19 14:00] VITALS: BP 132/72
[2016-06-19] MEDS: CEPACOL LOZENGE PO PRN (21:02)
[2016-06-20 06:00] VITALS: BP 100/77
[2016-06-20 07:11] LABS: MEAN CORPUSCULAR HEMOGLOBIN 35.1 pg (27.0-33.0); MEAN CORPUSCULAR HGB CONC 35.1 g/dl (32.0-36.5); MEAN CORPUSCULAR VOLUME 99.9 fl (80.0-96.0); RED CELL DISTRIBUTION WIDTH 13.3 % (11.5-14.5); WHITE BLOOD COUNT 5.8 K/mm3 (4.0-10.0)
[2016-06-20 07:29] LABS: ANION GAP 10 MEQ/L (8-16); BLOOD UREA NITROGEN 12 MG/DL (7-18); CARBON DIOXIDE LEVEL 27 MEQ/L (21-32); CHLORIDE LEVEL 104 MEQ/L (98-107); GLOMERULAR FILTRATION RATE > 60.0 (>49); GLUCOSE, FASTING 89 MG/DL (80-110); POTASSIUM SERUM 4.2 MEQ/L (3.5-5.1); SODIUM LEVEL 141 MEQ/L (136-145)
[2016-06-20] MEDS: MULTIVITAMINS/MINERALS THERAP 1 TAB PO SCH (08:58)
[2016-06-20] MEDS: risperiDONE 0.5 MG TAB PO SCH ×2 (08:58→20:27)
[2016-06-20] MEDS: ASPIRIN 81 MG ENTERIC TAB PO SCH (08:58)
[2016-06-20] MEDS: POTASSIUM CHLORIDE 10 MEQ SR TABLET PO SCH (08:58)
[2016-06-20] MEDS: THIAMINE 100 MG TAB PO SCH (08:58)
[2016-06-20] MEDS: FOLIC ACID 1 MG TAB PO SCH (08:58)
[2016-06-20] MEDS: QUEtiapine FUMARATE 200 MG TAB PO SCH ×2 (08:58→20:27)
[2016-06-20] MEDS: FUROSEMIDE 40 MG TAB PO SCH (08:58)
[2016-06-20] MEDS: SENOKOT S TAB PO SCH ×2 (08:58→20:27)
[2016-06-20] MEDS: COSOPT OCUMETER PLUS 10ML (DORZOLAMIDE/TIMOLOL) OU SCH ×2 (08:58→20:29)
[2016-06-20] MEDS: DIVALPROEX 500MG *ER* TAB PO SCH (08:59)
[2016-06-20] MEDS: ACETAMINOPHEN TAB 650MG DOSE (2X325MG) PO PRN ×2 (08:59→20:27)
[2016-06-20 14:00] VITALS: BP 137/73
[2016-06-21] MEDS: POTASSIUM CHLORIDE 10 MEQ SR TABLET PO SCH (08:41)
[2016-06-21] MEDS: SENOKOT S TAB PO SCH ×2 (08:41→20:08)
[2016-06-21] MEDS: COSOPT OCUMETER PLUS 10ML (DORZOLAMIDE/TIMOLOL) OU SCH ×2 (08:41→20:08)
[2016-06-21] MEDS: ASPIRIN 81 MG ENTERIC TAB PO SCH (08:41)
[2016-06-21] MEDS: risperiDONE 0.5 MG TAB PO SCH ×2 (08:41→20:08)
[2016-06-21] MEDS: DIVALPROEX 500MG *ER* TAB PO SCH (08:42)
[2016-06-21] MEDS: THIAMINE 100 MG TAB PO SCH (08:42)
[2016-06-21] MEDS: QUEtiapine FUMARATE 200 MG TAB PO SCH ×2 (08:42→20:10)
[2016-06-21] MEDS: FOLIC ACID 1 MG TAB PO SCH (08:42)
[2016-06-21] MEDS: FUROSEMIDE 40 MG TAB PO SCH (08:42)
[2016-06-21] MEDS: MULTIVITAMINS/MINERALS THERAP 1 TAB PO SCH (08:42)
[2016-06-21] MEDS: ACETAMINOPHEN TAB 650MG DOSE (2X325MG) PO PRN ×2 (08:42→20:09)
[2016-06-21 14:00] VITALS: BP 126/74
[2016-06-22 09:00] VITALS: BP 134/69
[2016-06-22] MEDS: COSOPT OCUMETER PLUS 10ML (DORZOLAMIDE/TIMOLOL) OU SCH ×2 (09:09→20:41)
[2016-06-22] MEDS: FUROSEMIDE 40 MG TAB PO SCH (09:10)
[2016-06-22] MEDS: ASPIRIN 81 MG ENTERIC TAB PO SCH (09:10)
[2016-06-22] MEDS: MULTIVITAMINS/MINERALS THERAP 1 TAB PO SCH (09:10)
[2016-06-22] MEDS: POTASSIUM CHLORIDE 10 MEQ SR TABLET PO SCH (09:10)
[2016-06-22] MEDS: SENOKOT S TAB PO SCH ×2 (09:11→20:42)
[2016-06-22] MEDS: risperiDONE 0.5 MG TAB PO SCH ×2 (09:11→20:41)
[2016-06-22] MEDS: DIVALPROEX 500MG *ER* TAB PO SCH (09:11)
[2016-06-22] MEDS: FOLIC ACID 1 MG TAB PO SCH (09:11)
[2016-06-22] MEDS: QUEtiapine FUMARATE 200 MG TAB PO SCH ×2 (09:11→20:42)
[2016-06-22] MEDS: THIAMINE 100 MG TAB PO SCH (09:12)
--- NOTE | 2016-06-22 09:40 | IPN ---
DATE OF VISIT: 06/21/2016 The patient is seen and examined at the bedside. Chart has been reviewed this morning. The patient complains of chronic low back pain alleviated by Tylenol, rated pain as 4/10, no radiation to the lower extremities. Denies urgency, frequency, hematuria, fever, chills or flank pain. The patient is declining further changes in medication and is satisfied with just Tylenol for now. No other issues per nursing over the past week. PHYSICAL EXAMINATION: VITAL SIGNS: Temperature 96.8, pulse 80, respirations 20, blood pressure 126/74, 94% on room air. GENERAL: Awake, alert and oriented times three, answering questions appropriately. LUNGS: Clear to auscultation. No wheezing, rales or rhonchi. HEART: S1, S2, sinus rhythm. ABDOMEN: Soft, nontender, nondistended. Positive bowel sounds. EXTREMITIES: No cyanosis, clubbing or edema. The patient has some tenderness around L3-4 area, no radicular pains. Straight leg test is negative. LABORATORY DATA: White count 5.8, hemoglobin 13, hematocrit 36, platelet count 152. Sodium 141, potassium 4.2, chloride 104, bicarbonate 27, BUN 12, creatinine 0.7, glucose 89. ASSESSMENT AND PLAN: This is a 66-year-old male with history of alcoholism, chronic pulmonary obstructive disease (COPD), glaucoma, hypertension, hyponatremia, peripheral neuropathy, macrocytic anemia, bipolar disorder type, alcohol related dementia, hernia repair was admitted on 01/24/2016, brought in by local police as he was cutting and also being aggressive towards his . The patient had been an alternate level of care ([facility]C) status with no other acute issues aside from chronic complaint of back pain. 1. History of alcoholic dementia at baseline with thiamine folate, multivitamin, and Seroquel. 2. History of bipolar disorder, on Risperdal and Depakote. The patient had been previously seen by psychiatrist,, Dr. Renea Mariano and appears to be stable at this time. 3. History of glaucoma. Continue eye drops. 4. Hypertension. Stable. 5. History of constipation. Resolved. 6. Deep venous thrombosis (DVT) prophylaxis. The patient is actively ambulating. DISPOSITION: Awaiting placement. [facility]
[2016-06-22] MEDS: ACETAMINOPHEN TAB 650MG DOSE (2X325MG) PO PRN (20:46)
[2016-06-23] MEDS: ACETAMINOPHEN TAB 650MG DOSE (2X325MG) PO PRN ×3 (04:40→21:06)
[2016-06-23 06:00] VITALS: BP 145/62
[2016-06-23] MEDS: POTASSIUM CHLORIDE 10 MEQ SR TABLET PO SCH (08:24)
[2016-06-23] MEDS: MULTIVITAMINS/MINERALS THERAP 1 TAB PO SCH (08:24)
[2016-06-23] MEDS: QUEtiapine FUMARATE 200 MG TAB PO SCH ×2 (08:24→21:06)
[2016-06-23] MEDS: risperiDONE 0.5 MG TAB PO SCH ×2 (08:24→21:06)
[2016-06-23] MEDS: THIAMINE 100 MG TAB PO SCH (08:24)
[2016-06-23] MEDS: FUROSEMIDE 40 MG TAB PO SCH (08:24)
[2016-06-23] MEDS: FOLIC ACID 1 MG TAB PO SCH (08:24)
[2016-06-23] MEDS: ASPIRIN 81 MG ENTERIC TAB PO SCH (08:25)
[2016-06-23] MEDS: SENOKOT S TAB PO SCH ×3 (08:25→21:08)
[2016-06-23] MEDS: DIVALPROEX 500MG *ER* TAB PO SCH (08:25)
[2016-06-23] MEDS: COSOPT OCUMETER PLUS 10ML (DORZOLAMIDE/TIMOLOL) OU SCH ×2 (08:25→21:06)
[2016-06-23 11:15] VITALS: BP 142/78
[2016-06-24 06:00] VITALS: BP 118/59
[2016-06-24] MEDS: ACETAMINOPHEN TAB 650MG DOSE (2X325MG) PO PRN ×2 (06:46→20:25)
[2016-06-24] MEDS: SENOKOT S TAB PO SCH ×2 (09:01→20:24)
[2016-06-24] MEDS: risperiDONE 0.5 MG TAB PO SCH ×2 (09:01→20:24)
[2016-06-24] MEDS: FOLIC ACID 1 MG TAB PO SCH (09:01)
[2016-06-24] MEDS: QUEtiapine FUMARATE 200 MG TAB PO SCH ×2 (09:01→20:36)
[2016-06-24] MEDS: THIAMINE 100 MG TAB PO SCH (09:01)
[2016-06-24] MEDS: ASPIRIN 81 MG ENTERIC TAB PO SCH (09:01)
[2016-06-24] MEDS: MULTIVITAMINS/MINERALS THERAP 1 TAB PO SCH (09:01)
[2016-06-24] MEDS: DIVALPROEX 500MG *ER* TAB PO SCH (09:02)
[2016-06-24] MEDS: POTASSIUM CHLORIDE 10 MEQ SR TABLET PO SCH (09:02)
[2016-06-24] MEDS: COSOPT OCUMETER PLUS 10ML (DORZOLAMIDE/TIMOLOL) OU SCH ×2 (09:02→20:24)
[2016-06-24] MEDS: FUROSEMIDE 40 MG TAB PO SCH (09:02)
[2016-06-24 14:00] VITALS: BP 132/75
[2016-06-25 06:00] VITALS: BP 132/73
[2016-06-25] MEDS: MULTIVITAMINS/MINERALS THERAP 1 TAB PO SCH (09:27)
[2016-06-25] MEDS: SENOKOT S TAB PO SCH ×2 (09:31→21:01)
[2016-06-25] MEDS: ASPIRIN 81 MG ENTERIC TAB PO SCH (09:31)
[2016-06-25] MEDS: QUEtiapine FUMARATE 200 MG TAB PO SCH ×2 (09:31→21:01)
[2016-06-25] MEDS: THIAMINE 100 MG TAB PO SCH (09:31)
[2016-06-25] MEDS: FOLIC ACID 1 MG TAB PO SCH (09:31)
[2016-06-25] MEDS: ACETAMINOPHEN TAB 650MG DOSE (2X325MG) PO PRN ×2 (09:31→21:12)
[2016-06-25] MEDS: FUROSEMIDE 40 MG TAB PO SCH (09:32)
[2016-06-25] MEDS: POTASSIUM CHLORIDE 10 MEQ SR TABLET PO SCH (09:32)
[2016-06-25] MEDS: DIVALPROEX 500MG *ER* TAB PO SCH (09:32)
[2016-06-25] MEDS: COSOPT OCUMETER PLUS 10ML (DORZOLAMIDE/TIMOLOL) OU SCH ×2 (09:32→21:01)
[2016-06-25] MEDS: risperiDONE 0.5 MG TAB PO SCH ×2 (09:32→21:01)
[2016-06-25 14:00] VITALS: BP 96/53
[2016-06-26 06:00] VITALS: BP 139/81
[2016-06-26] MEDS: THIAMINE 100 MG TAB PO SCH (08:10)
[2016-06-26] MEDS: FUROSEMIDE 40 MG TAB PO SCH (08:10)
[2016-06-26] MEDS: FOLIC ACID 1 MG TAB PO SCH (08:10)
[2016-06-26] MEDS: QUEtiapine FUMARATE 200 MG TAB PO SCH ×2 (08:10→21:39)
[2016-06-26] MEDS: risperiDONE 0.5 MG TAB PO SCH ×2 (08:10→21:39)
[2016-06-26] MEDS: MULTIVITAMINS/MINERALS THERAP 1 TAB PO SCH (08:10)
[2016-06-26] MEDS: SENOKOT S TAB PO SCH ×2 (08:10→21:39)
[2016-06-26] MEDS: ASPIRIN 81 MG ENTERIC TAB PO SCH (08:10)
[2016-06-26] MEDS: COSOPT OCUMETER PLUS 10ML (DORZOLAMIDE/TIMOLOL) OU SCH ×2 (08:11→21:39)
[2016-06-26] MEDS: POTASSIUM CHLORIDE 10 MEQ SR TABLET PO SCH (08:11)
[2016-06-26] MEDS: DIVALPROEX 500MG *ER* TAB PO SCH (08:11)
[2016-06-26] MEDS: ACETAMINOPHEN TAB 650MG DOSE (2X325MG) PO PRN ×2 (08:14→21:44)
[2016-06-27 06:00] VITALS: BP 150/85
[2016-06-27 06:51] LABS: ANION GAP 8 MEQ/L (8-16); BLOOD UREA NITROGEN 8 MG/DL (7-18); CARBON DIOXIDE LEVEL 27 MEQ/L (21-32); CHLORIDE LEVEL 103 MEQ/L (98-107); CREATININE FOR GFR 0.75 MG/DL (0.70-1.30); GLOMERULAR FILTRATION RATE > 60.0 (>49); GLUCOSE, FASTING 91 MG/DL (80-110); POTASSIUM SERUM 3.8 MEQ/L (3.5-5.1); SODIUM LEVEL 138 MEQ/L (136-145)
[2016-06-27 07:00] LABS: MEAN CORPUSCULAR HEMOGLOBIN 33.9 pg (27.0-33.0); MEAN CORPUSCULAR HGB CONC 32.9 g/dl (32.0-36.5); RED CELL DISTRIBUTION WIDTH 14.2 % (11.5-14.5); WHITE BLOOD COUNT 6.8 K/mm3 (4.0-10.0)
[2016-06-27] MEDS ORDERED: QUET1TAB9 PO (07:27)
[2016-06-27] MEDS ORDERED: DORZ2SOL5 OU (07:27)
[2016-06-27] MEDS ORDERED: COMBAER6 INH (07:27)
[2016-06-27] MEDS ORDERED: LISI10TA4 PO (07:27)
[2016-06-27] MEDS ORDERED: THIA100T PO (07:27)
[2016-06-27] MEDS ORDERED: ASPI81TA85 PO (07:27)
[2016-06-27] MEDS ORDERED: DIVA500T9 PO (07:27)
[2016-06-27] MEDS: POTASSIUM CHLORIDE 10 MEQ SR TABLET PO SCH (08:26)
[2016-06-27] MEDS: ASPIRIN 81 MG ENTERIC TAB PO SCH (08:27)
[2016-06-27] MEDS: MULTIVITAMINS/MINERALS THERAP 1 TAB PO SCH (08:27)
[2016-06-27] MEDS: THIAMINE 100 MG TAB PO SCH (08:27)
[2016-06-27] MEDS: SENOKOT S TAB PO SCH (08:27)
[2016-06-27] MEDS: QUEtiapine FUMARATE 200 MG TAB PO SCH (08:27)
[2016-06-27] MEDS: COSOPT OCUMETER PLUS 10ML (DORZOLAMIDE/TIMOLOL) OU SCH (08:27)
[2016-06-27] MEDS: risperiDONE 0.5 MG TAB PO SCH (08:27)
[2016-06-27] MEDS: FUROSEMIDE 40 MG TAB PO SCH (08:27)
[2016-06-27] MEDS: FOLIC ACID 1 MG TAB PO SCH (08:27)
[2016-06-27] MEDS: DIVALPROEX 500MG *ER* TAB PO SCH (08:37)
--- NOTE | 2016-06-27 18:50 | DSES ---
DATE OF ADMISSION: 02/24/2016 DATE OF DISCHARGE: 06/27/2016 CONSULTANTS: 1. Psychiatrist, Dr. Mariano. 2. Neurologist, Dr. Baldwin. PROCEDURES: None. COMPLICATIONS: None. ADMISSION/DISCHARGE DIAGNOSES: 1. History of alcoholic dementia. 2. Chronic obstructive pulmonary disease (COPD). 3. Glaucoma. 4. Hypertension. 5. Peripheral neuropathy. 6. Microcytic anemia. 7. Bipolar affective disorder, type 1. HOSPITALIZATION COURSE: The patient is a 66-year-old male brought in to [facility] by police on 01/24/2016, for abnormal behaviors. The patient has a history of being aggressive toward the and destroying the house. The patient was admitted for alcohol-related dementia encephalopathy, complicated by psychiatric illnesses. In addition to Depakote and Seroquel, the patient started on Risperdal. There is a suspicion the patient has undergone the manic phase from his bipolar affective disorder, and psychiatrist was consulted. The signed the restraint order against the patient due to his abnormal behaviors, and the patient was determined to not have decision capacity due to acute psychiatric illnesses. It was determined the patient does not qualify for acute inpatient mental health hospitalization. Around the same time, the neurologist, Dr. Baldwin, was also consulted for his dementia evaluation. After restarting the patient's psychiatric medications, the patient's mentation showed improvement. There is a concern that the patient my not be noncompliant with taking his medications. The patient will again lose capacity and have abnormal behavior once discharged from the hospital due to medication noncompliance. A social science manager has been involved for seeking placement or 18/12 supervision at home. On January 27, 2016, the patient was evaluated by the psychiatrist again. It was determined that the patient does not have understanding or capacity to make a decision, and the patient does not demonstrate any understanding of the importance of being consistently compliant with his medical treatments. It is determined that the patient needs to be in a supervised setting where his medication is monitored and dispensed to him. Per recommendation, it is determined that the patient does not have capacity to leave against medical advice (AMA). On 01/28/2016, the patient was medically stable with optimal medication adjustment, and the patient transferred to alternate level of care (ALC) status on 01/28/2016. Since then, the social science manager has been consistently seeking for placement for the patient. In the middle of May 2016, the patient has potential long-term placement in [place], and the patient's medications are reviewed and consolidated. On 06/27/2016, the patient is medically stable to discharge to a [facility], and the patient is recommended to follow with the primary care established, and followup with the primary care provider within one week. OBJECTIVE: VITAL SIGNS: Temperature 95.6, pulse 73, respirations 14, blood pressure 150/85, pulse oximetry 94% on room air. LABORATORY DATA: WBC is 6.8, hemoglobin 12.7, hematocrit 38.6, platelet count 143. Sodium 138, potassium 3.8, chloride 103, carbon dioxide 27, BUN 8, creatinine 0.75, GFR greater than 60, fasting glucose 91, calcium 9. Urine toxicology on 01/23/2016, is negative. Urinalysis on 01/13/2016, is negative. MICROBIOLOGY: Urine culture on 03/14/2016, is negative. IMAGING: CT of the head without contrast on 01/24/2016, showed no evidence of acute intracranial pathology. Chest x-ray on 05/22/2016, showed cannot subtle lingular infiltrate. DISCHARGE MEDICATIONS: - folic acid 1 mg by mouth daily - Lasix 40 mg by mouth daily - multivitamin one tablet by mouth daily - potassium chloride 20 mEq by mouth daily - Risperdal 0.5 mg by mouth twice a day - Senna one tablet by mouth twice a day - thiamine 100 mg by mouth daily - Combivent one puff inhalation four times a day - aspirin 81 mg by mouth daily - divalproex 2000 mg by mouth daily - dorzolamide one drop both eyes twice a day - lisinopril 10 mg by mouth daily - quetiapine 200 mg by mouth twice a day DISCHARGE INSTRUCTIONS: Discontinue lines. Discharge to [facility]. Activity as tolerated. Diet as tolerated. The patient will followup with the primary care provider, Dr. Catrina Roth, in [facility] on 07/11/2016. DISCHARGE TIME: Greater than 30 minutes. DISCHARGE CONDITION: Stable.
== END 2016-06-27 08:50 | DRG 896 ==
LOC: M ED 22:24 → M ED INP 01-24 05:51 → M MSPAV 01-24 07:41 → OBSVTOIN 01-24 13:26 → M ALC 02-01 21:34 → M MS5PR 03-03 15:00
PROVIDERS: ADMIT Hospitalist; ATTEND Internal Medicine
DX: F10.27 Alcohol dependence with alcohol-induced persisting dementia (principal); G93.40 Encephalopathy, unspecified; E87.1 Hypo-osmolality and hyponatremia; F01.51 Vascular dementia, unspecified severity, with behavioral disturbance; F31.2 Bipolar disorder, current episode manic severe with psychotic features; K70.40 Alcoholic hepatic failure without coma; I10 Essential (primary) hypertension; J44.9 Chronic obstructive pulmonary disease, unspecified; D64.9 Anemia, unspecified; H40.9 Unspecified glaucoma; G60.9 Hereditary and idiopathic neuropathy, unspecified; Z88.5 Allergy status to narcotic agent; Z79.899 Other long term (current) drug therapy; Z79.82 Long term (current) use of aspirin; G40.909 Epilepsy, unspecified, not intractable, without status epilepticus; K59.00 Constipation, unspecified; B35.1 Tinea unguium; E87.6 Hypokalemia